=== PATIENT | male | born 1970 | race Caucasian/White ===

== ENCOUNTER → 2016-08-20 | Outpatient (CLI) | payer OTHER ==
--- NOTE | 2016-08-20 10:43 | XR ---
EXAMINATION TYPE: XR chest 2V DATE OF EXAM: 08/20/2016 9:56 AM COMPARISON: Prior chest x-ray 17 October 2015 HISTORY: Bacterial pneumonia TECHNIQUE: Frontal and lateral views of the chest are obtained. FINDINGS: There is no focal air space opacity, pleural effusion, or pneumothorax seen. The cardiac silhouette size is within normal limits. There is bronchial wall thickening. The osseous structures are intact. IMPRESSION: Correlate for bronchitis, reactive airways disease, follow-up as indicated.
== END | disposition home or self-care (01) ==
LOC: RADXRMAIN 09:44
PROVIDERS: ATTEND Family Medicine
DX: J15.9 Unspecified bacterial pneumonia (principal)
CPT/HCPCS: 71020

== ENCOUNTER → 2016-09-10 | Outpatient (CLI) | payer OTHER ==
--- NOTE | 2016-09-10 20:19 | CT ---
EXAMINATION TYPE: CT abdomen w con DATE OF EXAM: 09/10/2016 6:58 PM COMPARISON: NONE HISTORY: Upper Abdomen pain CT DLP: 747 mGycm Automated exposure control for dose reduction was used. TECHNIQUE: Helical acquisition of images was performed from the lung bases through the top of iliac crest to include entire abdomen. CONTRAST: Performed with Oral Contrast and with IV Contrast, patient injected with 100 mL of Omnipaque 300. FINDINGS: Lung bases are clear of consolidation. There is no pleural effusion. Heart size is normal. Liver shows no focal defect. Gallbladder appears normal. Spleen and pancreas appear normal. There is no adrenal mass. There is a 3 cm cortical cyst on the lateral right kidney. There is no hydronephrosi s. There is no retroperitoneal adenopathy. Ureters are not dilated. Abdominal aorta shows mild athero matous change. The appendix appears normal. I see no intestinal wall thickening. There are no dilated loops. I see n o bony destructive process. IMPRESSION: RIGHT RENAL CORTICAL CYST. NEGATIVE CT SCAN OF THE ABDOMEN. NORMAL APPENDIX.
== END | disposition home or self-care (01) ==
LOC: RADCTMAIN 17:53
PROVIDERS: ATTEND Family Medicine
DX: N28.1 Cyst of kidney, acquired (principal)
CPT/HCPCS: 74160; Q9967

== ENCOUNTER 2017-01-22 07:32 | Inpatient (IN) | payer OTHER ==
[2017-01-22] MEDS ORDERED: ONDANSETRON 4 MG/2 ML VIAL IVP STA (07:49)
[2017-01-22] MEDS ORDERED: SODIUM CHLORIDE 0.9% 1,000 ML IV STA (07:49)
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
[2017-01-22] MEDS: HYDROmorphone 1 MG/ML 1 ML SYRINGE IVP STA ×2 (08:03→09:02)
[2017-01-22 08:10] LABS: Basophils % (A) 0 %; CHCM 34.7; Eosinophils # (A) 0.1 k/uL (0-0.7); Eosinophils % (A) 0 %; HCT 50.7 % (39.0-53.0); HDW 2.34; HGB 16.8 gm/dL (13.0-17.5); Luc # (Auto) 0.12; Luc % (Auto) 1; Lymphocytes # (A) 1.6 k/uL (1.0-4.8); Lymphocytes % (A) 10 %; MCH 32.7 pg (25.0-35.0); MCHC 33.2 g/dL (31.0-37.0); MCV 98.5 fL (80.0-100.0); Mean Platelet Volume 7.1; Monocytes # (A) 0.4 k/uL (0-1.0); Monocytes % (A) 3 %; Neutrophils # (A) 13.4 k/uL (1.3-7.7); Neutrophils % (A) 86 %; RBC 5.15 m/uL (4.30-5.90); RDW 12.8 % (11.5-15.5); WBC 15.6 k/uL (3.8-10.6); WBC (Perox) 14.92
[2017-01-22 08:14] LABS: ALT 21 U/L (21-72); AST 20 U/L (17-59); Alkaline Phosphatase 80 U/L (38-126); Amylase 64 U/L (30-110); Anion Gap 7 mmol/L; Blood Urea Nitrogen 9 mg/dL (9-20); Calcium 9.3 mg/dL (8.4-10.2); Carbon Dioxide 25 mmol/L (22-30); Chloride 108 mmol/L (98-107); Glucose 103 mg/dL (74-99); Non-African American GFR(MDRD) >60 (>60 ml/min/1.73 sqM); Potassium 3.9 mmol/L (3.5-5.1); Sodium 140 mmol/L (137-145); Total Bilirubin 2.2 mg/dL (0.2-1.3); Total Protein 6.6 g/dL (6.3-8.2)
[2017-01-22] MEDS ORDERED: RX INFO: IV CONTRAST WAS GIVEN 1 EACH MISC MISCELLANE PRN (08:15)
[2017-01-22] MEDS ORDERED: SODIUM CHLORIDE 0.9% 1,000 ML IV ONE ×2 (08:15→16:42)
[2017-01-22] MEDS ORDERED: PIPERACILLIN-TAZOBACTAM 3.375 GM in DEXTROSE/WATER 1 50ML.BAG IVPB STA (09:00)
[2017-01-22] MEDS ORDERED: HYDROmorphone 1 MG/ML 1 ML SYRINGE IVP STA (09:01)
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
[2017-01-22] MEDS ORDERED: MIDAZOLAM 2 MG/2 ML VIAL IV ONE ×2 (10:40→11:10)
[2017-01-22] MEDS ORDERED: fentaNYL (PF) 50 MCG/ML 2 ML AMP IV ONE ×2 (10:40→11:10)
[2017-01-22] MEDS ORDERED: IV FLUID CONTINUATION 1,000 ML IV ONE (10:53)
[2017-01-22] MEDS ORDERED: DEXAMETHASONE SOD PHOSPHATE 10 MG/ML 1 ML VIAL IV ONE (10:54)
[2017-01-22] MEDS ORDERED: HEPARIN SODIUM,PORCINE 5,000 UNIT/ML 1 ML VIAL ONE (11:35)
[2017-01-22] MEDS ORDERED: VECURONIUM 10 MG VIAL IV ONE (11:35)
[2017-01-22] MEDS ORDERED: LIDOCAINE 1% INJ 10MG/ML (20 ML MDV) ONE (11:35)
[2017-01-22] MEDS ORDERED: GLYCOPYRROLATE 0.2 MG/ML 2 ML VIAL ONE (11:35)
[2017-01-22] MEDS ORDERED: PROPOFOL 10 MG/ML 20 ML VIAL IV ONE (11:35)
[2017-01-22] MEDS ORDERED: HYDROmorphone (PF) 1 MG/ML ONE (11:35)
[2017-01-22] MEDS ORDERED: SUCCINYLCHOLINE CHLORIDE 100 MG/5 ML SYR IV ONE (11:35)
[2017-01-22] MEDS ORDERED: NEOSTIGMINE 1 MG/ML 10 ML VIAL ONE (11:35)
[2017-01-22] MEDS ORDERED: fentaNYL (PF) 50 MCG/ML 2 ML AMP ONE (11:35)
[2017-01-22] MEDS ORDERED: LACTATED RINGERS 1,000 ML IV ONE ×2 (12:16→13:40)
[2017-01-22] MEDS ORDERED: ONDANSETRON 4 MG/2 ML VIAL IVP PRN ×2 (12:19→14:50)
[2017-01-22] MEDS ORDERED: diphenhydrAMINE 50 MG/ML 1 ML VIAL IVP PRN (12:19)
[2017-01-22] MEDS ORDERED: NALOXONE 0.4 MG/ML 1 ML VIAL IV PRN (12:19)
[2017-01-22] MEDS ORDERED: NALBUPHINE 10 MG/ML AMPUL IV PRN (12:19)
[2017-01-22] MEDS ORDERED: METOCLOPRAMIDE 5 MG/ML 2 ML VIAL IVP PRN (14:50)
--- NOTE | 2017-01-22 15:05 | P.OP ---
Date of Procedure: 01/22/17 Preoperative Diagnosis: Perforated hollow viscus Peritonitis Sepsis Postoperative Diagnosis: Perforated upper rectum - anterior perforation Four quadrant contamination of abdomen with feces Fecal peritonitis Procedure(s) Performed: Exploratory laparotomy Galvan procedure End colostomy Implants: Anesthesia: RUSHA Surgeon: Vivian Gonzales Estimated Blood Loss (ml): 50 Urine output (ml): 500 Pathology: other Condition: stable Disposition: PACU Indications for Procedure: 46Years old male presented with acute abdominal pain with diffuse peritonitis and free air on computed tomography scan. Informed consent obtained patient elected to undergo exploratory laparotomy possible bowel resection and possible ostomy and all indicated procedures Operative Findings: Diffuse fecal peritonitis with 4 quadrant fecal contamination of the abdomen Description of Procedure: The patient was brought to the operating room and placed in lithotomy position. Chlorhexidine was used to prep the abdomen. A Lynn catheter was inserted and a straight aseptic precautions. Sterile drapes applied. Ioban was used. A timeout was performed to verify correct patient, correct procedure and correct site. A vertical midline incision was made this was deepened through the subcutaneous tissue and the peritoneal cavity was entered. Levi fecal contamination noted. Aerobic and anaerobic cultures sent. The feculent material was suctioned. Perforation was identified in the upper rectum, anteriorly just above the peritoneal reflection. The descending colon was divided at the junction of sigmoid colon using APARNA 60 mm load. The white line of Toldt was divided. Using LigaSure impact the posterior attachments of the sigmoid colon and upper rectum were taken down. The peritoneum overlying the rectum anteriorly as well as laterally were scored. A contour stapler was used to divide the rectum distal to the opening. However the staple line was noted to be just at the rectal opening. 2-0 silk sutures were used to close this defect. Further dissection was carried out circumferentially to free up more rectum. Endo APARNA 45 purple load 3 were used to divide the rectum distal to the opening. Hemostasis was checked. 7 L of warm saline irrigation was used to wash the abdominal cavity. Nasogastric tube position was checked. The small bowel was run from terminal ileum to ligament of Treitz. The appendix appeared normal. An opening was made in the skin and subcutis tissue in the left lower quadrant. The skin and subcutis tissue was divided until anterior rectus fascia was seen. A cruciate shaped incision was made in the anterior rectus sheath. 4 fingers could be easily passed through the fascia to allow the ostomy to be matured. The midline incision was closed with running sutures of #1 Maxon 2. A Shaila drain was left in the subcu tissue and skin was stapled. The ostomy was then matured in standard fashion using 3-0 Vicryl. An index finger can be passed through the ostomy beyond the fascia. A clean ostomy bag was applied The sponge, instrument and needle count were correct 2. Patient tolerated the procedure well and was taken to post anesthesia care unit in stable condition
[2017-01-22] MEDS: BUPIVACAINE (PF) 0.5% 50 ML, HYDROMORPHONE (PF) 5 MG in SODIUM CHLORIDE 0.9% 200 ML EPIDURAL PRN ×2 (15:07→15:35)
[2017-01-22 16:35] LABS: CH 33.1; HCT 43.7 % (39.0-53.0); HDW 2.43; HGB 15.4 gm/dL (13.0-17.5); Immature Gran Flag Marked; MCH 34.3 pg (25.0-35.0); MCHC 35.2 g/dL (31.0-37.0); MCV 97.6 fL (80.0-100.0); Mean Platelet Volume 7.2; RBC 4.48 m/uL (4.30-5.90); RDW 12.3 % (11.5-15.5); WBC 6.3 k/uL (3.8-10.6); WBC (Perox) 6.87
[2017-01-22 16:43] LABS: Anion Gap 6 mmol/L; Blood Urea Nitrogen 7 mg/dL (9-20); Carbon Dioxide 22 mmol/L (22-30); Chloride 112 mmol/L (98-107); Glucose 105 mg/dL (74-99); Non-African American GFR(MDRD) >60 (>60 ml/min/1.73 sqM); Potassium 3.9 mmol/L (3.5-5.1); Sodium 140 mmol/L (137-145)
[2017-01-22 16:47] LABS: Add Differential Manual Differential
[2017-01-22 16:49] LABS: Nucleated Red Blood Cells 0 /100 WBC (0-0); RBC Morphology Normal; Total Cells Counted 100
[2017-01-22 16:50] LABS: Manual Review Performed
[2017-01-22] MEDS: LACTATED RINGERS 1,000 ML IV SCH (17:09)
[2017-01-22] MEDS: HEPARIN SODIUM,PORCINE 5,000 UNIT/ML 1 ML VIAL SQ SCH ×2 (17:09→23:57)
[2017-01-22] MEDS: PIPERACILLIN-TAZOBACTAM 3.375 GM in DEXTROSE/WATER 1 50ML.BAG IVPB SCH ×2 (17:53→23:56)
[2017-01-22 20:42] LABS: Glucose,Whole Blood 87 mg/dL (75-99)
[2017-01-22] MEDS: FAMOTIDINE 20 MG/2 ML VIAL IV SCH (20:42)
[2017-01-22] MEDS: BENZOCAINE/MENTHOL LOZENG 1 EACH LOZENGE MUCOUS MEM PRN ×2 (20:42→23:57)
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
[2017-01-22] MEDS: MICAFUNGIN 100 MG in SODIUM CHLORIDE 0.9% 100 ML IVPB SCH (22:28)
[2017-01-22 22:30] LABS: Hepatitis B Surface Ag Index 0.04
[2017-01-22 22:36] LABS: Hepatitis B Core IgM Index 0.03
[2017-01-22 22:48] LABS: Hepatitis C Virus IgG Ab Negative (Negative); Hepatitis C Virus IgG Index 0.04
[2017-01-23] MEDS: LACTATED RINGERS 1,000 ML IV SCH ×4 (01:40→23:44)
[2017-01-23] MEDS: BENZOCAINE/MENTHOL LOZENG 1 EACH LOZENGE MUCOUS MEM PRN ×2 (04:13→11:04)
--- NOTE | 2017-01-23 07:00 | P.PN ---
Progress Note - Text Date: 01/23/2017 Time: 614 The patient is status post, exploratory laparotomy postoperative day number one The patient has no complaints of nausea vomiting or headache. The patient does not complain of any lower extremity numbness or weakness. The epidural is running at 6 mL per hour. The epidural will be maintained and adjusted as needed.
[2017-01-23] MEDS: PIPERACILLIN-TAZOBACTAM 3.375 GM in DEXTROSE/WATER 1 50ML.BAG IVPB SCH ×3 (07:43→23:44)
[2017-01-23] MEDS: HEPARIN SODIUM,PORCINE 5,000 UNIT/ML 1 ML VIAL SQ SCH ×3 (07:44→23:44)
[2017-01-23] MEDS: FAMOTIDINE 20 MG/2 ML VIAL IV SCH ×2 (07:44→20:18)
--- NOTE | 2017-01-23 14:01 | P.PN ---
Subjective 46-year-old being seen sitting up in a chair this morning nasal gastric tube in place connected to suction. 200 mL's documented dressing to surgical site dry. Ostomy left lower quadrant stoma pink no stool. Patient's initial presentation on the day of admission to the emergency room on the with a chief complaint of severe pain. Patient had been seen earlier in the day in the emergency room treated for what was thought to be epididymitis was discharged on oral antibiotic. Patient stated the pain continued to be intense on a scale from 1-10 rated as 10. Patient stated he attempted to move her breather cough was more severe. Subsequent the patient came back into the emergency room to be reevaluated. CAT scan of the abdomen pelvis showed free air in a patient who has acute abdominal pain with diffuse peritonitis. Dr. mars did see patient recommended proceeding with with surgery for treatment of sepsis perforated per rectum. Patient on the January underwent exploratory laparotomy Kaylah procedure end colostomy. Operative findings showed diffuse fecal peritonitis with 4 quadrant fecal contamination of the abdomen Objective - Vital Signs Vital signs: Vital Signs Temp 97.9 F 01/23/17 01:41 Pulse 65 01/23/17 01:41 Resp 16 01/23/17 01:41 BP 98/63 01/23/17 01:41 Pulse Ox 96 01/23/17 08:49 Intake & Output 01/22/17 01/23/17 01/23/17 18:59 06:59 18:59 Intake Total 2402.2 1000 Output Total 700 600 Balance 1702.2 400 Weight 65.317 kg Intake: IV 2402.2 Intake, IV Titration 1000 Amount Lactated Ringers 1,000 ml 1000 @ 125 mls/hr IV .Q8H [facility] Rx#:[id number] Output: Urine 600 600 Estimated Blood Loss 100 Other: Voiding Method Indwelling Catheter Indwelling Catheter Indwelling Catheter - Exam Physical exam 46-year-old male sitting up in a chair pleasant awake alert oriented 3 Lungs essentially clear adequate air movement sats on 2 L 96% Heart S1-S2 audible and regular Abdomen ostomy left lower quadrant stoma pink a few hypoactive bowel tones dressing to surgical site dry indwelling Lynn catheter in place nondistended surgical tenderness Extremities lobe any DISHA hose on no edema - Labs CBC & Chem 7: 01/22/17 16:15 01/22/17 16:15 Labs: Abnormal Lab Results - Last 24 Hours (Table) 01/22/17 01/22/17 Range/Units 16:15 16:15 Lymphocytes # (Manual) 0.2 L (1.0-4.8) k/uL Chloride 112 H (98-107) mmol/L BUN 7 L (9-20) mg/dL Glucose 105 H (74-99) mg/dL Calcium 8.0 L (8.4-10.2) mg/dL Microbiology - Last 24 Hours (Table) 01/22/17 13:30 Gram Stain - Preliminary Abdominal Fluid Wound Culture - Preliminary 01/22/17 13:30 Gram Stain - Preliminary Abdominal Fluid Wound Culture - Preliminary 01/22/17 13:30 Anaerobic Culture - Preliminary Abdominal Fluid 01/22/17 13:30 Anaerobic Culture - Preliminary Abdominal Fluid Assessment and Plan Plan: Impression Present on admission severe intractable abdominal pain suspect due to acute generalized peritonitis Present on admission sepsis acute suspect due to acute Pneumoperitoneum with acute generalized peritonitis Current every day smoker Present on admission perforated rectum unclear etiology Present on admission acute leukocytosis Plan Remove the nasogastric tube Continue indwelling Lynn catheter while epidural in place Continue postop surgical care Pain control DVT and GI prophylaxis Ostomy teaching The above dictated assessment and findings were discussed with dr mars Impression and the plan of care have been dictated as directed. Cookie Rodriguez nurse practitioner acting as a scribe for dr mars
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
[2017-01-23] MEDS: BUPIVACAINE (PF) 0.5% 50 ML, HYDROMORPHONE (PF) 5 MG in SODIUM CHLORIDE 0.9% 200 ML EPIDURAL PRN (20:01)
[2017-01-23] MEDS: MICAFUNGIN 100 MG in SODIUM CHLORIDE 0.9% 100 ML IVPB SCH (22:02)
[2017-01-24 07:44] LABS: Basophils % (A) 0 %; CH 33.2; CHCM 34.6; Eosinophils # (A) 0.1 k/uL (0-0.7); Eosinophils % (A) 1 %; HCT 40.8 % (39.0-53.0); HDW 2.48; HGB 13.7 gm/dL (13.0-17.5); Luc # (Auto) 0.08; Luc % (Auto) 1; Lymphocytes # (A) 0.8 k/uL (1.0-4.8); Lymphocytes % (A) 6 %; MCH 32.3 pg (25.0-35.0); MCHC 33.5 g/dL (31.0-37.0); MCV 96.4 fL (80.0-100.0); Mean Platelet Volume 7.6; Monocytes # (A) 0.3 k/uL (0-1.0); Monocytes % (A) 2 %; Neutrophils # (A) 11.7 k/uL (1.3-7.7); Neutrophils % (A) 90 %; RBC 4.23 m/uL (4.30-5.90); RDW 12.6 % (11.5-15.5); WBC 12.9 k/uL (3.8-10.6)
[2017-01-24] MEDS: HEPARIN SODIUM,PORCINE 5,000 UNIT/ML 1 ML VIAL SQ SCH ×2 (08:07→15:25)
[2017-01-24 08:42] LABS: ALT 39 U/L (21-72); AST 47 U/L (17-59); Alkaline Phosphatase 93 U/L (38-126); Anion Gap 8 mmol/L; Blood Urea Nitrogen 8 mg/dL (9-20); Calcium 8.5 mg/dL (8.4-10.2); Carbon Dioxide 23 mmol/L (22-30); Chloride 104 mmol/L (98-107); Glucose 70 mg/dL (74-99); Non-African American GFR(MDRD) >60 (>60 ml/min/1.73 sqM); Potassium 3.6 mmol/L (3.5-5.1); Sodium 135 mmol/L (137-145); Total Bilirubin 1.1 mg/dL (0.2-1.3)
[2017-01-24] MEDS: PIPERACILLIN-TAZOBACTAM 3.375 GM in DEXTROSE/WATER 1 50ML.BAG IVPB SCH ×2 (09:26→15:26)
[2017-01-24] MEDS ORDERED: BUPIVACAINE (PF) 0.5% 30 ML VIAL EPIDURAL STA (09:38)
[2017-01-24] MEDS ORDERED: NALOXONE 0.4 MG/ML 1 ML VIAL IV PRN (09:50)
--- NOTE | 2017-01-24 09:56 | P.PN ---
Progress Note - Text Post operative day #2 , status post exploratory laparotomy with colostomy, patient had epidural catheter placed for postoperative analgesia, she'll currently on continuous infusion of bupivacaine/Dilaudid at 8 mL per hour , VAS is 5/10 , he has respiratory depression, had no motor deficit, epidural site okay. Assessment and plan= patient pain level to uncontrolled and he had side effects from the Dilaudid, I will discontinue the Dilaudid and changed the infusion to fentanyl/bupivacaine at 8 mL per hour,
[2017-01-24] MEDS ORDERED: BUPIVACAINE (PF) 0.5% 31.3 ML, fentaNYL (PF) 1,250 MCG in SODIUM CHLORIDE 0.9% 194 ML EPIDURAL PRN (10:00)
[2017-01-24] MEDS: FAMOTIDINE 20 MG/2 ML VIAL IV SCH ×2 (10:01→21:36)
[2017-01-24 10:28] LABS: Glucose,Whole Blood 93 mg/dL (75-99)
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
[2017-01-24] MEDS: IPRATROPIUM-ALBUTEROL 3 ML NEB INHALATION SCH ×4 (12:08→19:13)
--- NOTE | 2017-01-24 12:45 | P.PN ---
Progress Note - Text Psychiatry consult placed today. Patient is sedated, unable to answer any questions. Daughter at bedside. Spoke to RN Sonja, patient just received epidural for pain. Please reconsult when patient is medically stable/clear for psychiatric evaluations
[2017-01-24] MEDS: ACETAMINOPHEN IV (For NPO) 1,000 MG in EMPTY BAG 1 BAG IVPB SCH ×2 (13:32→19:57)
[2017-01-24] MEDS: LACTATED RINGERS 1,000 ML IV SCH ×3 (13:34→20:47)
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
[2017-01-24] MEDS: MICAFUNGIN 100 MG in SODIUM CHLORIDE 0.9% 100 ML IVPB SCH (21:36)
[2017-01-24 23:59] LABS: Glucose,Whole Blood 87 mg/dL (75-99)
[2017-01-25] MEDS: HEPARIN SODIUM,PORCINE 5,000 UNIT/ML 1 ML VIAL SQ SCH ×4 (00:19→23:21)
[2017-01-25] MEDS: PIPERACILLIN-TAZOBACTAM 3.375 GM in DEXTROSE/WATER 1 50ML.BAG IVPB SCH ×4 (00:20→23:16)
[2017-01-25] MEDS: ACETAMINOPHEN IV (For NPO) 1,000 MG in EMPTY BAG 1 BAG IVPB SCH ×2 (04:40→08:20)
[2017-01-25] MEDS: IPRATROPIUM-ALBUTEROL 3 ML NEB INHALATION SCH ×5 (05:21→20:27)
[2017-01-25] MEDS: LACTATED RINGERS 1,000 ML IV SCH ×3 (05:53→23:17)
[2017-01-25 05:56] LABS: Glucose,Whole Blood 76 mg/dL (75-99)
[2017-01-25] MEDS: FAMOTIDINE 20 MG/2 ML VIAL IV SCH ×2 (08:19→20:13)
[2017-01-25] MEDS ORDERED: MORPHINE SULFATE 2 MG/ML SYRINGE IVP PRN (10:02)
[2017-01-25 11:46] LABS: Glucose,Whole Blood 71 mg/dL (75-99)
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
[2017-01-25 12:08] LABS: Glucose,Whole Blood 78 mg/dL (75-99)
[2017-01-25] MEDS: HYDROmorphone 1 MG/ML 1 ML SYRINGE IVP PRN ×2 (17:40→20:05)
[2017-01-25 18:07] LABS: Glucose,Whole Blood 84 mg/dL (75-99)
[2017-01-25] MEDS: MICAFUNGIN 100 MG in SODIUM CHLORIDE 0.9% 100 ML IVPB SCH (20:06)
[2017-01-25] MEDS ORDERED: IPRATROPIUM-ALBUTEROL 3 ML NEB INHALATION PRN (21:39)
[2017-01-26 02:33] LABS: Glucose,Whole Blood 65 mg/dL (75-99)
[2017-01-26 02:56] LABS: Glucose,Whole Blood 80 mg/dL (75-99)
[2017-01-26 05:58] LABS: Glucose,Whole Blood 97 mg/dL (75-99)
[2017-01-26 07:09] LABS: Basophils % (A) 0 %; CH 33.1; CHCM 35.1; Eosinophils # (A) 0.1 k/uL (0-0.7); Eosinophils % (A) 2 %; HCT 40.8 % (39.0-53.0); HDW 2.71; HGB 14.7 gm/dL (13.0-17.5); Luc # (Auto) 0.25; Luc % (Auto) 3; Lymphocytes # (A) 0.9 k/uL (1.0-4.8); Lymphocytes % (A) 11 %; MCH 33.9 pg (25.0-35.0); MCHC 35.9 g/dL (31.0-37.0); MCV 94.5 fL (80.0-100.0); Mean Platelet Volume 7.3; Monocytes # (A) 0.6 k/uL (0-1.0); Monocytes % (A) 7 %; Neutrophils # (A) 6.4 k/uL (1.3-7.7); Neutrophils % (A) 77 %; RBC 4.32 m/uL (4.30-5.90); RDW 12.5 % (11.5-15.5); WBC 8.3 k/uL (3.8-10.6); WBC (Perox) 8.57
[2017-01-26 07:29] LABS: ALT 30 U/L (21-72); AST 32 U/L (17-59); Alkaline Phosphatase 86 U/L (38-126); Anion Gap 7 mmol/L; Blood Urea Nitrogen 7 mg/dL (9-20); Calcium 8.1 mg/dL (8.4-10.2); Carbon Dioxide 23 mmol/L (22-30); Chloride 105 mmol/L (98-107); Glucose 99 mg/dL (74-99); Non-African American GFR(MDRD) >60 (>60 ml/min/1.73 sqM); Potassium 3.2 mmol/L (3.5-5.1); Sodium 135 mmol/L (137-145); Total Bilirubin 0.8 mg/dL (0.2-1.3); Total Protein 5.1 g/dL (6.3-8.2)
[2017-01-26] MEDS: PIPERACILLIN-TAZOBACTAM 3.375 GM in DEXTROSE/WATER 1 50ML.BAG IVPB SCH ×2 (08:32→15:37)
[2017-01-26] MEDS: LACTATED RINGERS 1,000 ML IV SCH ×2 (08:32→16:30)
[2017-01-26] MEDS: HEPARIN SODIUM,PORCINE 5,000 UNIT/ML 1 ML VIAL SQ SCH ×2 (08:32→15:37)
[2017-01-26] MEDS: FAMOTIDINE 20 MG/2 ML VIAL IV SCH ×2 (08:32→20:30)
[2017-01-26] MEDS: HYDROmorphone 1 MG/ML 1 ML SYRINGE IVP PRN ×5 (09:08→20:30)
[2017-01-26] MEDS ORDERED: Potassium Replacement Protocol 1 EACH MISC MISCELLANE PRN (10:39)
--- NOTE | 2017-01-26 10:43 | P.PN ---
Subjective Patient is postop day #4 for perforated rectum with feculent peritonitis. He had a Galvan procedure. The patient has been uncooperative. We are awaiting psych consultation. Objective - Vital Signs Vital signs: Vital Signs Temp 98.0 F 01/26/17 07:00 Pulse 72 01/26/17 07:00 Resp 16 01/26/17 07:00 BP 147/85 01/26/17 07:00 Pulse Ox 94 L 01/26/17 07:00 Intake & Output 01/25/17 01/26/17 01/26/17 18:59 06:59 18:59 Intake Total 1700 Output Total 1900 1700 Balance -1900 0 Intake: Intake, IV Titration 1700 Amount Lactated Ringers 1,000 ml 1500 @ 125 mls/hr IV .Q8H [facility] Rx#:[id number] Micafungin 100 mg In 100 Sodium Chloride 0.9% 100 ml @ 100 mls/hr IVPB HS [facility] Rx#:[id number] Piperacillin-Tazobactam 3 100 .375 gm In Dextrose/Water 1 50ml.bag @ 12.5 mls/hr IVPB Q8HR [facility] Rx#: [id number] Output: Urine 1900 1700 Uretheral (Lynn) 1900 Other: Voiding Method Indwelling Catheter Urinal Toilet - Constitutional General appearance: Present: thin - Respiratory Details: Decreased breath sounds at the bases - Cardiovascular Rhythm: regular Heart sounds: normal: S1, S2 - Gastrointestinal Gastrointestinal Comment(s): Ostomy pink, no flatus yet Incision clean and dry/[place] drain intact General gastrointestinal: Present: absent bowel sounds - Labs CBC & Chem 7: 01/26/17 06:46 01/26/17 06:46 Labs: Abnormal Lab Results - Last 24 Hours (Table) 01/25/17 01/26/17 01/26/17 Range/Units 11:44 02:30 06:46 Lymphocytes # 0.9 L (1.0-4.8) k/uL Sodium (137-145) mmol/L Potassium (3.5-5.1) mmol/L BUN (9-20) mg/dL Creatinine (0.66-1.25) mg/dL POC Glucose (mg/dL) 71 L 65 L (75-99) mg/dL Calcium (8.4-10.2) mg/dL Total Protein (6.3-8.2) g/dL Albumin (3.5-5.0) g/dL 01/26/17 Range/Units 06:46 Lymphocytes # (1.0-4.8) k/uL Sodium 135 L (137-145) mmol/L Potassium 3.2 L (3.5-5.1) mmol/L BUN 7 L (9-20) mg/dL Creatinine 0.56 L (0.66-1.25) mg/dL POC Glucose (mg/dL) (75-99) mg/dL Calcium 8.1 L (8.4-10.2) mg/dL Total Protein 5.1 L (6.3-8.2) g/dL Albumin 2.6 L (3.5-5.0) g/dL Assessment and Plan Plan: Impression/plan: 1. Status post Galvan procedure for perforated rectum 2. Awaiting return of bowel function 3. Psychiatric history awaiting psych consult Plan: 1. Epidural and Lynn removed 2. Awaiting return of bowel function
[2017-01-26] MEDS: POTASSIUM CHLORIDE 10 MEQ, LIDOCAINE 2% INJ 10 MG in SODIUM CHLORIDE 0.9% 100 ML IVPB SCH ×4 (12:27→20:30)
[2017-01-26 12:35] LABS: Glucose,Whole Blood 93 mg/dL (75-99)
[2017-01-26 17:53] LABS: Glucose,Whole Blood 75 mg/dL (75-99)
[2017-01-26] MEDS: MICAFUNGIN 100 MG in SODIUM CHLORIDE 0.9% 100 ML IVPB SCH (21:33)
[2017-01-27 00:03] LABS: Glucose,Whole Blood 73 mg/dL (75-99)
[2017-01-27] MEDS: HYDROmorphone 1 MG/ML 1 ML SYRINGE IVP PRN ×6 (00:06→22:08)
[2017-01-27] MEDS: HEPARIN SODIUM,PORCINE 5,000 UNIT/ML 1 ML VIAL SQ SCH ×3 (00:09→16:22)
[2017-01-27] MEDS: PIPERACILLIN-TAZOBACTAM 3.375 GM in DEXTROSE/WATER 1 50ML.BAG IVPB SCH ×3 (00:09→16:22)
[2017-01-27] MEDS: LACTATED RINGERS 1,000 ML IV SCH ×4 (02:21→20:05)
[2017-01-27] MEDS: POTASSIUM CHLORIDE 10 MEQ, LIDOCAINE 2% INJ 10 MG in SODIUM CHLORIDE 0.9% 100 ML IVPB SCH ×2 (04:45→06:03)
[2017-01-27 05:51] LABS: Glucose,Whole Blood 89 mg/dL (75-99)
[2017-01-27 08:21] LABS: Basophils % (A) 0 %; CH 33.5; Eosinophils # (A) 0.1 k/uL (0-0.7); Eosinophils % (A) 2 %; HCT 42.4 % (39.0-53.0); HDW 2.67; HGB 14.4 gm/dL (13.0-17.5); Luc # (Auto) 0.25; Luc % (Auto) 3; Lymphocytes # (A) 1.2 k/uL (1.0-4.8); Lymphocytes % (A) 16 %; MCH 32.7 pg (25.0-35.0); MCHC 33.9 g/dL (31.0-37.0); MCV 96.2 fL (80.0-100.0); Mean Platelet Volume 7.2; Monocytes # (A) 0.7 k/uL (0-1.0); Monocytes % (A) 10 %; Neutrophils # (A) 5.2 k/uL (1.3-7.7); Neutrophils % (A) 69 %; RBC 4.41 m/uL (4.30-5.90); WBC 7.6 k/uL (3.8-10.6); WBC (Perox) 7.68
[2017-01-27 08:36] LABS: ALT 36 U/L (21-72); AST 38 U/L (17-59); Alkaline Phosphatase 87 U/L (38-126); Anion Gap 8 mmol/L; Blood Urea Nitrogen 5 mg/dL (9-20); Calcium 8.4 mg/dL (8.4-10.2); Carbon Dioxide 23 mmol/L (22-30); Chloride 106 mmol/L (98-107); Glucose 96 mg/dL (74-99); Magnesium 2.1 mg/dL (1.6-2.3); Non-African American GFR(MDRD) >60 (>60 ml/min/1.73 sqM); Potassium 3.6 mmol/L (3.5-5.1); Sodium 137 mmol/L (137-145); Total Bilirubin 0.8 mg/dL (0.2-1.3); Total Protein 5.4 g/dL (6.3-8.2)
[2017-01-27] MEDS: FAMOTIDINE 20 MG/2 ML VIAL IV SCH (09:09)
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
[2017-01-27] MEDS: POTASSIUM CHLORIDE 10 MEQ, LIDOCAINE 2% INJ 10 MG in SODIUM CHLORIDE 0.9% 100 ML IV SCH ×2 (10:47→12:12)
[2017-01-27] MEDS: KETOROLAC 30 MG/ML 1 ML VIAL IVP SCH ×2 (10:47→17:15)
[2017-01-27 11:17] VITALS: BMI 22.5
[2017-01-27 11:31] LABS: Glucose,Whole Blood 115 mg/dL (75-99)
[2017-01-27] MEDS ORDERED: KETOROLAC 30 MG/ML 1 ML VIAL IM SCH (12:00)
[2017-01-27 14:24] VITALS: RESP 16
[2017-01-27 18:01] LABS: Glucose,Whole Blood 114 mg/dL (75-99)
[2017-01-27] MEDS: MICAFUNGIN 100 MG in SODIUM CHLORIDE 0.9% 100 ML IVPB SCH (20:40)
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
[2017-01-27 23:57] LABS: Glucose,Whole Blood 108 mg/dL (75-99)
[2017-01-28] MEDS: HEPARIN SODIUM,PORCINE 5,000 UNIT/ML 1 ML VIAL SQ SCH ×2 (00:11→09:21)
[2017-01-28] MEDS: PIPERACILLIN-TAZOBACTAM 3.375 GM in DEXTROSE/WATER 1 50ML.BAG IVPB SCH ×2 (00:11→09:27)
[2017-01-28] MEDS: KETOROLAC 30 MG/ML 1 ML VIAL IVP SCH ×2 (00:55→06:08)
[2017-01-28 06:29] LABS: Glucose,Whole Blood 80 mg/dL (75-99)
[2017-01-28] MEDS ORDERED: HYDROcodone/APAP 5-325MG 1 EACH TAB PO PRN (06:48)
[2017-01-28] MEDS ORDERED: FAMOTIDINE 20 MG TAB PO SCH (09:00)
[2017-01-28] MEDS: LACTATED RINGERS 1,000 ML IV SCH (09:17)
[2017-01-28 10:12] VITALS: BP 170/90; PULSE 68; TEMP 97.2
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
[2017-01-28 11:52] LABS: Glucose,Whole Blood 83 mg/dL (75-99)
[2017-01-28] MEDS: POTASSIUM CHLORIDE ER 20 MEQ TAB.ER PO SCH ×2 (13:47→14:08)
== END 2017-01-28 14:50 | disposition home health service (06) | DRG 853 ==
LOC: EC 07:32 → 3SUR 10:17
PROVIDERS: ADMIT Surgery; ATTEND Surgery
PROC: 0D1N0Z4 Bypass Sigmoid Colon to Cutaneous, Open Approach (ICD-10-PCS; 2017-01-22)
PROC: 0DBP0ZZ Excision of Rectum, Open Approach (ICD-10-PCS; principal; 2017-01-22 09:00)
DX: A41.9 Sepsis, unspecified organism (principal); K65.0 Generalized (acute) peritonitis; K63.1 Perforation of intestine (nontraumatic); K66.8 Other specified disorders of peritoneum; F32.9 Major depressive disorder, single episode, unspecified; J44.9 Chronic obstructive pulmonary disease, unspecified; K21.9 Gastro-esophageal reflux disease without esophagitis; K82.8 Other specified diseases of gallbladder; F17.210 Nicotine dependence, cigarettes, uncomplicated; F39 Unspecified mood [affective] disorder; B96.1 Klebsiella pneumoniae [K. pneumoniae] as the cause of diseases classified elsewhere; B96.89 Other specified bacterial agents as the cause of diseases classified elsewhere; Z82.49 Family history of ischemic heart disease and other diseases of the circulatory system
CPT/HCPCS: 36415; 74177; 80048; 80053; 80074; 82150; 83605; 83690; 83735; 84132; 85025; 87070; 87075; 87077; 87186; 87205; 87390; 88307; 94640; 94760; 96361; 96365; 96375; 96376; 99291

== ENCOUNTER 2017-02-05 22:35 | Emergency (ER) | payer OTHER ==
[2017-02-05 23:46] LABS: Basophils # (A) 0.2 k/uL (0-0.2); Basophils % (A) 2 %; CH 33.4; CHCM 35.5; Eosinophils # (A) 0.2 k/uL (0-0.7); Eosinophils % (A) 2 %; HCT 42.9 % (39.0-53.0); HDW 2.58; HGB 15.1 gm/dL (13.0-17.5); Luc # (Auto) 0.21; Luc % (Auto) 2; Lymphocytes # (A) 2.3 k/uL (1.0-4.8); Lymphocytes % (A) 22 %; MCH 33.2 pg (25.0-35.0); MCHC 35.2 g/dL (31.0-37.0); MCV 94.4 fL (80.0-100.0); Mean Platelet Volume 6.7; Monocytes # (A) 0.8 k/uL (0-1.0); Monocytes % (A) 7 %; Neutrophils # (A) 6.9 k/uL (1.3-7.7); Neutrophils % (A) 66 %; RBC 4.55 m/uL (4.30-5.90); RDW 13.1 % (11.5-15.5); WBC 10.6 k/uL (3.8-10.6)
[2017-02-05] MEDS ORDERED: SODIUM CHLORIDE 0.9% 1,000 ML IV ONE (23:48)
[2017-02-05] MEDS ORDERED: HYDROmorphone 1 MG/ML 1 ML SYRINGE IVP STA (23:48)
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
[2017-02-06 00:01] LABS: ALT 66 U/L (21-72); AST 35 U/L (17-59); Alkaline Phosphatase 86 U/L (38-126); Amylase 103 U/L (30-110); Anion Gap 13 mmol/L; Blood Urea Nitrogen 10 mg/dL (9-20); Calcium 9.7 mg/dL (8.4-10.2); Carbon Dioxide 23 mmol/L (22-30); Chloride 104 mmol/L (98-107); Glucose 100 mg/dL (74-99); Non-African American GFR(MDRD) >60 (>60 ml/min/1.73 sqM); Potassium 3.8 mmol/L (3.5-5.1); Sodium 140 mmol/L (137-145); Total Bilirubin 0.3 mg/dL (0.2-1.3); Total Protein 6.7 g/dL (6.3-8.2)
[2017-02-06 01:03] LABS: Appearance,Urine Clear (Clear); Bilirubin,Urine Negative (Negative); Glucose,Urine (UA) Negative (Negative); Ketones,Urine Negative (Negative); Leukocyte Esterase,Urine Negative (Negative); Nitrite,Urine Negative (Negative); Protein,Urine Negative (Negative); Specific Gravity,Urine 1.007 (1.001-1.035); UA Billing (MACRO vs. MICRO) CHEM; Urobilinogen,Urine <2.0 mg/dL (<2.0)
[2017-02-06] MEDS ORDERED: RX INFO: IV CONTRAST WAS GIVEN 1 EACH MISC MISCELLANE PRN (01:12)
[2017-02-06] MEDS ORDERED: MORPHINE SULFATE 10 MG/ML SYRINGE IVP STA (02:02)
--- NOTE | 2017-02-06 03:41 | CT ---
EXAM: CT Abdomen and Pelvis With Intravenous Contrast CLINICAL HISTORY: Reason: Pain. Recent bowel resection. TECHNIQUE: Axial computed tomography images of the abdomen and pelvis with intravenous contrast. CTDI is 21.83 mGy and DLP is 919 mGy-cm. This CT exam was performed using one or more of the following dose reduction techniques: automated exposure control, adjustment of the mA and/or kV according to patient size, and/or use of iterative reconstruction technique. COMPARISON: Recent 01/22/17 CT. FINDINGS: Lower thorax: Increased atelectasis the right base with trace right pleural effusion, and minor dependent changes at the left base, ABDOMEN: Liver: Stable. No mass. Gallbladder and bile ducts: Borderline gallbladder wall thickening is stable with the gallbladder now less distended. No calcified stones. No ductal dilation. Pancreas: Stable. No mass. No ductal dilation. Spleen: Stable. No splenomegaly. Adrenals: Stable. No mass. Kidneys and ureters: Stable including exophytic right renal cyst and punctate left lower pole renal probable cyst. No hydronephrosis. Stomach and bowel: Interval distal sigmoid resection with oversewn distal rectum, and creation of left lower quadrant diverting colostomy. No evidence of intestinal obstruction. Appendix: No findings to suggest acute appendicitis. PELVIS: Bladder: Unremarkable. No mass. Reproductive: Unremarkable as visualized. ABDOMEN and PELVIS: Intraperitoneal space: Previous free air has resolved. Bones/joints: Stable including slight leftward curvature and incidental note made of transitional anatomy at the lumbosacral junction. Soft tissues: New postsurgical changes in the anterior abdominal wall, with midline defect and overlying skin sam, between which there is air and fluid containing collection extending over a length of approximately 16 cm in length, by 2.7 x 2.1 cm on axial image 64. Vasculature: Stable. No abdominal aortic aneurysm. Lymph nodes: Stable. No enlarged lymph nodes. IMPRESSION: 1. Interval distal sigmoid resection with left lower quadrant diverting colostomy, and resolution of previous free air. 2. Postoperative changes in the midline anterior abdominal wall, where there is vertically oriented fluid collection which contains foci of air within. While this may be on the basis of a postoperative hematoma or seroma the possibility of infection is not excluded. This could be correlated clinically including with infectious disease parameters, and fluid sampling could be considered if clinically indicated. 3. Additional findings, including increased right base atelectasis with trace right pleural effusion, as above.
[2017-02-06] MEDS ORDERED: MORPHINE SULFATE 4 MG/ML SYRINGE IVP STA (04:19)
[2017-02-06 04:28] VITALS: BP 129/63; PULSE 68; RESP 16; TEMP 97.4
== END 2017-02-06 04:27 | disposition home or self-care (01) ==
LOC: EC 22:35
DX: K91.872 Postprocedural seroma of a digestive system organ or structure following a digestive system procedure (principal); R00.0 Tachycardia, unspecified; M54.5 Low back pain; R30.9 Painful micturition, unspecified; F17.200 Nicotine dependence, unspecified, uncomplicated; Z79.899 Other long term (current) drug therapy; Z91.030 Bee allergy status; Z93.3 Colostomy status; Z98.84 Bariatric surgery status; Z83.79 Family history of other diseases of the digestive system; Y83.6 Removal of other organ (partial) (total) as the cause of abnormal reaction of the patient, or of later complication, without mention of misadventure at the time of the procedure
CPT/HCPCS: 36415; 80053; 82150; 83605; 83690; 85025; 81003; 87040; 74177; 99284; 96374; 96375; 96376; 96361 ×4; J2270 ×2; J1170; Q9967

== ENCOUNTER 2017-03-20 18:28 | Emergency (ER) | payer OTHER ==
[2017-03-20] MEDS ORDERED: SODIUM CHLORIDE 0.9% 1,000 ML IV STA (18:42)
[2017-03-20] MEDS ORDERED: HYDROmorphone 1 MG/ML 1 ML SYRINGE IVP STA ×2 (18:42→20:38)
[2017-03-20] MEDS ORDERED: ONDANSETRON 4 MG/2 ML VIAL IVP STA (18:42)
[2017-03-20] MEDS ORDERED: RX INFO: IV CONTRAST WAS GIVEN 1 EACH MISC MISCELLANE PRN (19:09)
[2017-03-20 19:17] LABS: Basophils % (A) 0 %; CH 33.1; CHCM 35.4; Eosinophils # (A) 0.2 k/uL (0-0.7); Eosinophils % (A) 2 %; HDW 2.58; HGB 16.2 gm/dL (13.0-17.5); Luc % (Auto) 2; Lymphocytes # (A) 2.5 k/uL (1.0-4.8); Lymphocytes % (A) 26 %; MCH 33.1 pg (25.0-35.0); MCHC 35.3 g/dL (31.0-37.0); MCV 93.8 fL (80.0-100.0); Mean Platelet Volume 6.7; Monocytes # (A) 0.5 k/uL (0-1.0); Monocytes % (A) 5 %; Neutrophils # (A) 6.3 k/uL (1.3-7.7); Neutrophils % (A) 65 %; RDW 13.2 % (11.5-15.5); WBC 9.7 k/uL (3.8-10.6); WBC (Perox) 9.49
--- NOTE | 2017-03-20 19:20 | XR ---
EXAMINATION TYPE: XR KUB DATE OF EXAM: 03/20/2017 COMPARISON: NONE HISTORY: Colostomy pain TECHNIQUE: 2 views FINDINGS: Bowel gas pattern is normal. There is no sign of intestinal obstruction or pneumoperitoneum . There is a colostomy in the left mid abdomen. Lung bases are clear. There are no pathologic calcifi cations over the kidneys. Fecal pattern is normal. IMPRESSION: Nonacute abdomen.
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
[2017-03-20 19:27] LABS: ALT 36 U/L (21-72); AST 24 U/L (17-59); Alkaline Phosphatase 94 U/L (38-126); Amylase 87 U/L (30-110); Anion Gap 12 mmol/L; Blood Urea Nitrogen 5 mg/dL (9-20); Calcium 9.9 mg/dL (8.4-10.2); Carbon Dioxide 26 mmol/L (22-30); Chloride 103 mmol/L (98-107); Glucose 102 mg/dL (74-99); Non-African American GFR(MDRD) >60 (>60 ml/min/1.73 sqM); Potassium 4.2 mmol/L (3.5-5.1); Sodium 141 mmol/L (137-145); Total Bilirubin 0.7 mg/dL (0.2-1.3); Total Protein 7.6 g/dL (6.3-8.2)
[2017-03-20 19:30] LABS: Partial Thromboplastin Time 28.2 sec (22.0-30.0); Prothrombin Time 10.4 sec (9.0-12.0)
--- NOTE | 2017-03-20 19:46 | CT ---
EXAMINATION TYPE: CT abdomen pelvis w con DATE OF EXAM: 03/20/2017 COMPARISON: 02/06/2017 HISTORY: ABDOMINAL PAIN NEAR COLOSTOMY SITE. CT DLP: 439.4 mGycm Automated exposure control for dose reduction was used. TECHNIQUE: Helical acquisition of images was performed from the lung bases through the pelvis. CONTRAST: Performed without Oral Contrast and with IV Contrast, patient injected with 100 mL of Omnipaque 300. FINDINGS: There is mild increased interstitial density at the lung bases consistent with minimal atelectasis. T here is no pleural effusion. Liver spleen pancreas gallbladder appear normal. Bile ducts are not dilated. There is no adrenal mass . There is a 2 cm cortical cyst on the lateral right kidney. There is no hydronephrosis. There is no retroperitoneal adenopathy. Abdominal aorta is atheromatous. There is a descending colon colonic osto my on the left side. Large bowel is not dilated. There is borderline dilated small bowel that measure s up to 2.8 cm. I see no obstructing lesion. Appendix appears normal. Bony structures are intact. There is no ascites. I see no bony destructive process. IMPRESSION: THERE IS FLUID MILD DISTENTION OF THE SMALL BOWEL CONSISTENT WITH MILD ILEUS. THERE IS MORE DISTENTIO N THAN THE LAST EXAM OF 02/06/2017. RIGHT RENAL CORTICAL CYST. THERE IS CLEARING OF THE INFILTRATE AND ATELECTASIS IN THE RIGHT LOWER LOBE COMPARED TO OLD EXAM.
[2017-03-20 20:29] LABS: Appearance,Urine Clear (Clear); Bilirubin,Urine Negative (Negative); Glucose,Urine (UA) Negative (Negative); Ketones,Urine Negative (Negative); Leukocyte Esterase,Urine Negative (Negative); Nitrite,Urine Negative (Negative); Protein,Urine Negative (Negative); Specific Gravity,Urine 1.039 (1.001-1.035); UA Billing (MACRO vs. MICRO) CHEM; Urobilinogen,Urine <2.0 mg/dL (<2.0)
[2017-03-20 21:34] VITALS: BP 142/86; PULSE 86; RESP 16; TEMP 98.3
== END 2017-03-20 21:40 | disposition home or self-care (01) ==
LOC: EC 18:28
DX: K56.7 Ileus, unspecified (principal); F17.200 Nicotine dependence, unspecified, uncomplicated; Z93.3 Colostomy status; Z98.84 Bariatric surgery status; Z79.899 Other long term (current) drug therapy; Z91.030 Bee allergy status
CPT/HCPCS: 96376 ×2; 96361 ×2; 96374 ×2; 96375 ×2; 99284 ×2; 36415; 80053; 82150; 83605; 83690; 85025; 85610; 85730; 81003; 74000; 74177; J2405; J1170; Q9967

== ENCOUNTER 2017-04-21 18:02 | Emergency (ER) | payer OTHER ==
[2017-04-21 18:26] VITALS: TEMP 97.5
[2017-04-21] MEDS ORDERED: ASPIRIN 81 MG PO STA (18:35)
[2017-04-21] MEDS ORDERED: NITROGLYCERIN OINT 1 INCH/GM PACKET TOPICAL STA (18:35)
--- NOTE | 2017-04-21 19:21 | XR ---
EXAMINATION TYPE: XR chest 2V DATE OF EXAM: 04/21/2017 COMPARISON: 08/20/2016 HISTORY: Chest pain TECHNIQUE: Frontal and lateral views of the chest are obtained. FINDINGS: There is no focal air space opacity, pleural effusion, or pneumothorax seen. The cardiac silhouette size is within normal limits. The osseous structures are intact. IMPRESSION: No acute cardiopulmonary process.
[2017-04-21 19:22] LABS: Basophils % (A) 0 %; CH 32.8; CHCM 35.2; Eosinophils # (A) 0.3 k/uL (0-0.7); Eosinophils % (A) 2 %; HCT 43.9 % (39.0-53.0); HDW 2.62; HGB 15.6 gm/dL (13.0-17.5); Luc # (Auto) 0.17; Luc % (Auto) 1; Lymphocytes # (A) 2.4 k/uL (1.0-4.8); Lymphocytes % (A) 15 %; MCH 33.2 pg (25.0-35.0); MCHC 35.5 g/dL (31.0-37.0); MCV 93.6 fL (80.0-100.0); Mean Platelet Volume 6.9; Monocytes # (A) 0.5 k/uL (0-1.0); Monocytes % (A) 3 %; Neutrophils # (A) 12.5 k/uL (1.3-7.7); Neutrophils % (A) 79 %; RBC 4.69 m/uL (4.30-5.90); WBC 15.9 k/uL (3.8-10.6); WBC (Perox) 14.89
[2017-04-21 19:38] LABS: ALT 35 U/L (21-72); AST 24 U/L (17-59); Alkaline Phosphatase 94 U/L (38-126); Anion Gap 9 mmol/L; Blood Urea Nitrogen 6 mg/dL (9-20); Calcium 9.6 mg/dL (8.4-10.2); Carbon Dioxide 25 mmol/L (22-30); Chloride 105 mmol/L (98-107); Glucose 81 mg/dL (74-99); Magnesium 2.1 mg/dL (1.6-2.3); Non-African American GFR(MDRD) >60 (>60 ml/min/1.73 sqM); Potassium 4.1 mmol/L (3.5-5.1); Prothrombin Time 10.3 sec (9.0-12.0); Sodium 139 mmol/L (137-145); Total Bilirubin 0.6 mg/dL (0.2-1.3); Total Protein 7.3 g/dL (6.3-8.2)
[2017-04-21 19:41] LABS: Creatine Kinase 75 U/L (55-170)
[2017-04-21 19:54] LABS: Creatine Kinase MB 0.3 ng/mL (0.0-2.4); Troponin I <0.012 ng/mL (0.000-0.034)
--- NOTE | 2017-04-21 20:05 | ED ---
Chest Pain HPI - General Chief Complaint: Chest Pain Stated Complaint: Sent by ME abnormal labs Time Seen by Provider: 04/21/17 18:26 Source: patient Mode of arrival: ambulatory Limitations: no limitations - History of Present Illness Initial Comments: This 46-year-old white male presents with a complaint of some chest pain. This is in the midsternal region and described as a pressure or heaviness. There is no radiation of the pain. This occurred while at rest. He denies any known previous cardiac or pulmonary pathology. He, however, states that everyone in his family has cardiac disease. He has had occasional shortness of breath. He denies any leg pain or swelling. There is not a pleuritic component to his chest pain. He denies any previous similar incidents. No history of DVT or PE. He relates that he had a stress test and heart catheterization in December 2016 and the results were negative at that time. No other complaints or modifying factors. - Related Data Home Medications Medication Instructions Recorded Confirmed No Known Home Medications [No 04/21/17 04/21/17 Known Home Medications] Allergies Allergy/AdvReac Type Severity Reaction Status Date / Time bee venom protein (honey bee) Allergy Severe Anaphylaxis Verified 04/21/17 18:36 Review of Systems ROS Statement: Those systems with pertinent positive or pertinent negative responses have been documented in the HPI. ROS Other: All systems not noted in ROS Statement are negative. Past Medical History Past Medical History: COPD, GERD/Reflux Additional Past Medical History / Comment(s): Encephalopathy, hypoglycemia History of Any Multi-Drug Resistant Organisms: None Reported Past Surgical History: Bariatric Surgery Past Anesthesia/Blood Transfusion Reactions: No Reported Reaction Past Psychological History: No Psychological Hx Reported Smoking Status: Current every day smoker Past Alcohol Use History: None Reported Past Drug Use History: None Reported - Past Family History Father Family Medical History: Coronary Artery Disease (CAD), Pulmonary Embolus Mother Family Medical History: COPD, GERD/Reflux, Hypertension, Myocardial Infarction ( [place]), Rheumatoid Arthritis ([place]) General Exam - General Exam Comments Initial Comments: GENERAL: The patient is well nourished and well hydrated. VITAL SIGNS: Heart rate, blood pressure, respiratory rate reviewed as recorded in nurse's notes. EYES: Pupils are round and reactive. Extraocular movements are intact. No conjunctival / lid redness or swelling. ENT: No external evidence of injury, swelling, or ecchymosis. Airway is patent. Throat is clear. NECK: Nontender. No swelling or evidence of injury. No subcutaneous emphysema. Trachea is midline. No thyroid mass. HEART: Regular rate and rhythm. Good peripheral pulses. LUNGS/CHEST: Breath sounds clear and equal bilaterally. No rales, rhonchi, or wheezes. No ecchymosis, subcutaneous emphysema, or tenderness. ABDOMEN: Abdomen soft without tenderness. No palpable masses or organomegaly. No peritoneal signs. No abdominal wall swelling or ecchymosis. EXTREMITIES: No extremity tenderness. Normal muscle tone and function. No thoracolumbar tenderness. NEUROLOGIC: Sensation is grossly intact. Cranial nerve exam reveals face is symmetrical, tongue is midline, speech is clear. SKIN: No abrasions or ecchymosis is noted. No induration or masses noted. PSYCHIATRIC: Alert and oriented. Appropriate behavior and judgment. Limitations: no limitations Course Vital Signs 04/21/17 18:24 Temperature 97.5 F L Pulse Rate 90 Respiratory 20 Rate Blood Pressure 126/78 O2 Sat by Pulse 98 Oximetry Chest Pain [facility] The patient was seen and examined. All diagnostics were reviewed. An EKG was done and shows a normal sinus rhythm at a rate of 80. There is no acute ST-T wave changes identified. The [place] interval is 158, QRS duration is 86, and the QTc interval is 422. The chest x-ray does not show any acute process. The laboratory is all unremarkable. He does receive aspirin as well as Nitropaste. He is feeling much improved on recheck and has no further chest pain. This felt as though he would require admission to the hospital for further treatment and evaluation to rule out the possibility of acute coronary syndrome. He refuses admission. Risks and benefits were discussed and ultimately detail. He is lucid at time of discussion but still refuses admission. He states that he just had a stress test and heart catheterization approximately 4 months ago and was negative at that time. He prefers to follow up closely with his primary care physician and leaves AGAINST MEDICAL ADVICE. Disposition Clinical Impression: Unstable angina pectoris, Chest pain, Left against medical advice Disposition: Left Against Medical Advice Condition: Fair Instructions: Chest Pain (ED), Against Medical Advice (ED) Referrals: Gaurang Middleton DO [Primary Care Provider] - 1-2 days Time of Disposition: 20:14
[2017-04-21 20:45] VITALS: BP 106/60; PULSE 88; RESP 16
== END 2017-04-21 20:45 | disposition left against medical advice (07) ==
LOC: EC 18:02
DX: I20.0 Unstable angina (principal); F17.200 Nicotine dependence, unspecified, uncomplicated; Z82.49 Family history of ischemic heart disease and other diseases of the circulatory system; Z53.29 Procedure and treatment not carried out because of patient's decision for other reasons; Z91.030 Bee allergy status
CPT/HCPCS: 36415; 71020; 80053; 82550; 82553; 83735; 84484; 85025; 85610; 85730; 93005; 99285

== ENCOUNTER 2017-05-06 06:33 | Day surgery (SDC) | payer OTHER ==
[2017-04-30 13:30] VITALS: BMI 22.7
[~2017-05-06 06:33] MED LIST: LACTATED RINGERS 1,000 ML IV SCH
[2017-05-06 07:06] VITALS: TEMP 97.7
[2017-05-06 07:10] LABS: Glucose,Whole Blood 87 mg/dL (75-99)
[2017-05-06] MEDS ORDERED: PROPOFOL 10 MG/ML 20 ML VIAL IV ONE (07:33)
[2017-05-06] MEDS ORDERED: LIDOCAINE 1% INJ 10MG/ML (20 ML MDV) ONE (07:33)
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
--- NOTE | 2017-05-06 08:09 | P.OP ---
Date of Procedure: 05/06/17 Preoperative Diagnosis: Rectal perforation COPD H/O seizure Postoperative Diagnosis: Ascending colon polyp 5 mm Procedure(s) Performed: Colonoscopy via ostomy and distal rectal stump Biopsy using cold biopsy forceps Anesthesia: MAC Surgeon: Vivian Gonzales Pathology: other Condition: stable Disposition: PACU Indications for Procedure: 46 years old male presents for colonoscopy via ostomy and distal rectal stump for colostomy reversal. He is a chronic active smoker and history of COPD. Operative Findings: Distal rectal stump measures 10 cm from the anal verge Single 5 mm polyp in the ascending colon which was removed using cold biopsy forceps Description of Procedure: The patient was brought to the endoscopy suite and placed in lateral decubitus position. IV sedation was given as per anesthesia team. Patient was on continuous vitals and pulse oximetry monitoring throughout the procedure. A timeout was performed to verify correct patient and correct procedure. Perianal examination did not show any external hemorrhoids. Digital rectal examination was performed. No masses or gross blood. A well-lubricated Olympus colonoscope was passed per rectally and was gradually up to 10 cm from the anal verge . No additional polyps identified. Patient was then placed supine and ostomy bag was removed. A well-lubricated colonoscope was passed via ostomy beyond the sigmoid colon, splenic flexure, transverse colon, hepatic flexure and cecum. The ileocecal valve was visualized as well as the appendiceal orifice . The colonoscope was gradually withdrawn inspecting all the mucosal surfaces. Bowel prep was fair. Single 5 mm flat polyp identified in the ascending colon which was removed using cold biopsy forceps .No AV malformations noted. The scope was gradually withdrawn . Total withdrawal time was greater than 6 minutes . Patient tolerated the procedure well and was taken to post anesthesia care unit in stable condition. Final Pathologic Diagnosis ASCENDING COLON, BIOPSY: TUBULAR ADENOMA. Recommend repeat colonoscopy in 5 years .
[2017-05-06 08:37] VITALS: BP 110/78; PULSE 74; RESP 20
== END 2017-05-06 08:46 | disposition home or self-care (01) ==
LOC: ORWHC2ENDO 06:33
PROVIDERS: ATTEND Surgery
DX: D12.2 Benign neoplasm of ascending colon (principal); K63.1 Perforation of intestine (nontraumatic); Z93.3 Colostomy status; F17.210 Nicotine dependence, cigarettes, uncomplicated; J44.9 Chronic obstructive pulmonary disease, unspecified; K21.9 Gastro-esophageal reflux disease without esophagitis; E16.2 Hypoglycemia, unspecified; Z91.030 Bee allergy status
CPT/HCPCS: 88305; 44389; J2001; J2704

== ENCOUNTER 2017-05-07 06:29 | Inpatient (IN) | payer OTHER ==
[2017-04-30 13:45] VITALS: BMI 22.7
[~2017-05-07 06:29] MED LIST changes: +DEXAMETHASONE SOD PHOSPHATE 10 MG/ML 1 ML VIAL IV ONE; +HEPARIN SODIUM,PORCINE 5,000 UNIT/ML 1 ML VIAL SQ ONE; +HYDROmorphone 0.5 MG/0.5 ML SYRINGE IVP PRN; -LACTATED RINGERS 1,000 ML IV SCH; +LIDOCAINE 1% 20 ML VIAL (10MG/ML) FOR IV START INTRADERMA PRN; +ONDANSETRON 4 MG/2 ML VIAL IVP ONE; +SCOPOLAMINE 1.5MG/72HR PATCH TRANSDERM ONE
[2017-05-07] MEDS ORDERED: NALOXONE 0.4 MG/ML 1 ML VIAL IV PRN (10:20)
[2017-05-07 10:39] LABS: Glucose,Whole Blood 90 mg/dL (75-99)
[2017-05-07] MEDS: LACTATED RINGERS 1,000 ML IV SCH ×2 (10:45→20:50)
[2017-05-07] MEDS ORDERED: Antibiotics per Pharmacy 1 EACH MISC MISCELLANE PRN (11:18)
[2017-05-07] MEDS ORDERED: ACETAMINOPHEN TAB 500 MG TAB PO ONE (11:18)
[2017-05-07] MEDS ORDERED: HEPARIN SODIUM,PORCINE 5,000 UNIT/ML 1 ML VIAL SQ ONE (11:18)
[2017-05-07] MEDS ORDERED: ALVIMOPAN 12 MG CAPSULE PO ONE (11:18)
[2017-05-07] MEDS ORDERED: HYDROmorphone (PF) 1 MG/ML ONE (11:46)
[2017-05-07] MEDS ORDERED: ROCURONIUM BROMIDE 10 MG/ML 10 ML VIAL IV ONE (11:46)
[2017-05-07] MEDS ORDERED: LIDOCAINE 1% INJ 10MG/ML (20 ML MDV) ONE (11:46)
[2017-05-07] MEDS ORDERED: PROPOFOL 10 MG/ML 20 ML VIAL IV ONE (11:46)
[2017-05-07] MEDS ORDERED: fentaNYL (PF) 50 MCG/ML 2 ML AMP ONE (11:46)
[2017-05-07] MEDS ORDERED: GLYCOPYRROLATE 0.2 MG/ML 2 ML VIAL ONE (11:46)
[2017-05-07] MEDS ORDERED: MIDAZOLAM 2 MG/2 ML VIAL ONE (11:46)
[2017-05-07] MEDS ORDERED: NEOSTIGMINE 1 MG/ML 10 ML VIAL ONE (11:46)
[2017-05-07 12:23] LABS: Glucose,Whole Blood 111 mg/dL (75-99)
[2017-05-07 12:43] LABS: ALT 29 U/L (21-72); AST 31 U/L (17-59); Alkaline Phosphatase 86 U/L (38-126); Anion Gap 9 mmol/L; Blood Urea Nitrogen 8 mg/dL (9-20); Calcium 9.5 mg/dL (8.4-10.2); Carbon Dioxide 27 mmol/L (22-30); Chloride 103 mmol/L (98-107); Glucose 81 mg/dL (74-99); Non-African American GFR(MDRD) >60 (>60 ml/min/1.73 sqM); Potassium 4.3 mmol/L (3.5-5.1); Sodium 139 mmol/L (137-145); Total Bilirubin 0.6 mg/dL (0.2-1.3); Total Protein 7.1 g/dL (6.3-8.2)
[2017-05-07] MEDS ORDERED: LACTATED RINGERS 1,000 ML IV ONE ×2 (12:48→14:21)
[2017-05-07 13:33] LABS: Glucose,Whole Blood 156 mg/dL (75-99)
[2017-05-07 14:30] LABS: Glucose,Whole Blood 190 mg/dL (75-99)
[2017-05-07] MEDS: BUPIVACAINE (PF) 0.5% 31.3 ML, HYDROMORPHONE (PF) 5 MG in SODIUM CHLORIDE 0.9% 218 ML EPIDURAL PRN (15:46)
[2017-05-07] MEDS ORDERED: ONDANSETRON 4 MG/2 ML VIAL IVP PRN (15:59)
[2017-05-07] MEDS ORDERED: BENZOCAINE/MENTHOL LOZENG 1 EACH LOZENGE MUCOUS MEM PRN (15:59)
[2017-05-07] MEDS ORDERED: METOCLOPRAMIDE 5 MG/ML 2 ML VIAL IVP PRN (15:59)
--- NOTE | 2017-05-07 16:35 | P.OP ---
Date of Procedure: 05/07/17 Preoperative Diagnosis: Rectal perforation secondary to trauma Chronic nicotine dependence Postoperative Diagnosis: Same Procedure(s) Performed: Exploratory laparotomy Colostomy takedown Low anterior anastomosis Rigid sigmoidoscopy Application of Pervena wound VAC dressing Implants: NA Anesthesia: GETAjoyce Surgeon: Vivian Gonzales Estimated Blood Loss (ml): 50 Pathology: none sent Condition: stable Disposition: PACU Indications for Procedure: 46 years old male presents for colostomy reversal. Informed consent obtained and he elected to undergo colostomy reversal. The risks, benefits and potential complications were explained. Operative Findings: Low rectal stump below the anterior peritoneal reflection Primary low anterior anastomosis was performed. Air insufflation test was negative for leak Description of Procedure: The patient was brought to the operating room and placed in lithotomy position. Gen. anesthesia with endotracheal intubation was performed as per anesthesia team. A timeout was performed to verify correct patient and correct procedure. The ostomy was closed with running sutures of 2-0 silk and sealed with Tegaderm. The perineum was prepped with Betadine. Chlorhexidine was used to prep the entire abdomen followed by application of sterile drapes. An iodoform dressing applied. A vertical midline incision was made along the existing scar and the peritoneal cavity was entered in the midline. Adhesions noted between the anterior abdominal wall and omentum. Meticulous dissection was carried out to take the adhesions down using combination of sharp Metzenbaum scissors and Bovie electrocautery. The small bowel was run from terminal ileum to the ligament of Treitz. There were some adhesions noted between the greater omentum and the small bowel loops which were again taken down using meticulous dissection. The colostomy site was then from the surrounding skin and subcutaneous tissue. TA 75mm load was fired across the end of the ostomy and it was interiorized. The white line of Toldt was incised along the left lateral wall. Dissection was carried down to free up the lateral adhesions to gain enough length for the staple line to reach the pelvis. The distal rectal stump was identified with the help of Prolene stitches which were placed during the prior surgery. The rectal stump was completely mobilized below the peritoneal reflection. The descending colon and the rectal stump were aligned in end- to end fashion. There was no tension. An autosuture pursestring was applied and the staple line of the sigmoid colon was opened to allow passage of 25 mm and 29 mm sizers. ILS 29 stapler was used for anastomosis. The stapler was passed per rectally and was opened to direct the pin anterior to the staple line in the distal rectal stump. The anvil of the stapler was secured at the base using pursestring autosuture. An end-to-end anastomosis was performed. Rigid sigmoidoscopy was performed.There was no air leak on insufflation. The anastomosis was without any undue tension or torsion. The small bowel was run again from ligament of Treitz to terminal ileum. The back table was used with new drapes and gowns and gloves. The prior ostomy site was closed in 2 layers using 2-0 Maxon running sutures in 2 layers. The midline was closed with double-stranded #1 PDS x2 in a running fashion. Skin sam were applied. The sponge, instrument and needle count were correct x2. Prerenal wound VAC dressing applied. Patient tolerated the procedure well and was taken to postanesthesia care unit in stable condition
[2017-05-07 17:22] LABS: Glucose,Whole Blood 147 mg/dL (75-99)
[2017-05-07] MEDS: HEPARIN SODIUM,PORCINE 5,000 UNIT/ML 1 ML VIAL SQ SCH ×2 (18:13→23:57)
[2017-05-07 18:16] LABS: Basophils % (A) 0 %; CH 32.6; CHCM 33.4; Eosinophils # (A) 0.1 k/uL (0-0.7); Eosinophils % (A) 0 %; HCT 45.8 % (39.0-53.0); HDW 2.45; HGB 15.2 gm/dL (13.0-17.5); Luc # (Auto) 0.21; Luc % (Auto) 1; Lymphocytes # (A) 0.6 k/uL (1.0-4.8); Lymphocytes % (A) 4 %; MCH 32.5 pg (25.0-35.0); MCHC 33.3 g/dL (31.0-37.0); MCV 97.9 fL (80.0-100.0); Mean Platelet Volume 7.1; Monocytes # (A) 0.5 k/uL (0-1.0); Monocytes % (A) 3 %; Neutrophils # (A) 14.6 k/uL (1.3-7.7); Neutrophils % (A) 91 %; RBC 4.68 m/uL (4.30-5.90); RDW 12.9 % (11.5-15.5); WBC (Perox) 14.72
[2017-05-07 18:29] LABS: Anion Gap 8 mmol/L; Blood Urea Nitrogen 8 mg/dL (9-20); Calcium 8.9 mg/dL (8.4-10.2); Carbon Dioxide 25 mmol/L (22-30); Chloride 104 mmol/L (98-107); Glucose 136 mg/dL (74-99); Non-African American GFR(MDRD) >60 (>60 ml/min/1.73 sqM); Potassium 4.2 mmol/L (3.5-5.1); Sodium 137 mmol/L (137-145)
[2017-05-07] MEDS: ACETAMINOPHEN IV (For NPO) 1,000 MG in EMPTY BAG 1 BAG IVPB SCH (18:33)
[2017-05-07 19:54] LABS: Glucose,Whole Blood 131 mg/dL (75-99)
[2017-05-07] MEDS: FAMOTIDINE 20 MG/2 ML VIAL IV SCH (20:31)
[2017-05-07] MEDS: diphenhydrAMINE 50 MG/ML 1 ML VIAL IVP PRN (23:56)
[2017-05-08] MEDS: ACETAMINOPHEN IV (For NPO) 1,000 MG in EMPTY BAG 1 BAG IVPB SCH ×3 (04:37→12:07)
[2017-05-08] MEDS: BUPIVACAINE (PF) 0.5% 31.3 ML, HYDROMORPHONE (PF) 5 MG in SODIUM CHLORIDE 0.9% 218 ML EPIDURAL PRN (06:50)
[2017-05-08] MEDS: LACTATED RINGERS 1,000 ML IV SCH ×4 (07:14→20:07)
[2017-05-08] MEDS: diphenhydrAMINE 50 MG/ML 1 ML VIAL IVP PRN ×2 (07:19→16:55)
[2017-05-08 07:31] LABS: Glucose,Whole Blood 96 mg/dL (75-99)
[2017-05-08] MEDS: FAMOTIDINE 20 MG/2 ML VIAL IV SCH ×2 (07:33→20:11)
[2017-05-08] MEDS: HEPARIN SODIUM,PORCINE 5,000 UNIT/ML 1 ML VIAL SQ SCH ×2 (07:33→16:55)
[2017-05-08] MEDS: ALVIMOPAN 12 MG CAPSULE PO SCH ×2 (07:33→20:12)
[2017-05-08] MEDS: NICOTINE 14MG/24HR PATCH TRANSDERM SCH (07:33)
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
[2017-05-08] MEDS ORDERED: IPRATROPIUM-ALBUTEROL 3 ML NEB INHALATION PRN (10:40)
[2017-05-08 11:32] LABS: Glucose,Whole Blood 90 mg/dL (75-99)
[2017-05-08] MEDS: MIDODRINE 5 MG TAB PO SCH ×2 (12:09→16:54)
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
[2017-05-08] MEDS: SODIUM CHLORIDE 0.9% 1,000 ML IV SCH (20:07)
[2017-05-08 20:18] LABS: Glucose,Whole Blood 75 mg/dL (75-99)
--- NOTE | 2017-05-08 20:18 | P.PN ---
Progress Note - Text 05/08 2022 46-year-old male status post colostomy reversal by Dr. Gonzales. Patient has epidural solution running at 12 mL an hour with a VAS of 5. He had been ambulating all evening. Plan to continue epidural infusion
[2017-05-09] MEDS: BUPIVACAINE (PF) 0.5% 31.3 ML, HYDROMORPHONE (PF) 5 MG in SODIUM CHLORIDE 0.9% 218 ML EPIDURAL PRN ×2 (00:29→17:24)
[2017-05-09] MEDS: diphenhydrAMINE 50 MG/ML 1 ML VIAL IVP PRN ×2 (00:49→18:53)
[2017-05-09] MEDS: HEPARIN SODIUM,PORCINE 5,000 UNIT/ML 1 ML VIAL SQ SCH ×3 (01:02→16:06)
[2017-05-09] MEDS: LACTATED RINGERS 1,000 ML IV SCH ×2 (03:35→07:58)
[2017-05-09] MEDS: SODIUM CHLORIDE 0.9% 1,000 ML IV SCH ×2 (03:35→09:22)
[2017-05-09 07:20] LABS: Basophils # (A) 0.1 k/uL (0-0.2); Basophils % (A) 1 %; Eosinophils # (A) 0.2 k/uL (0-0.7); Eosinophils % (A) 2 %; HCT 42.5 % (39.0-53.0); Luc # (Auto) 0.25; Luc % (Auto) 3; Lymphocytes # (A) 2.5 k/uL (1.0-4.8); Lymphocytes % (A) 25 %; MCH 33.1 pg (25.0-35.0); MCHC 32.9 g/dL (31.0-37.0); MCV 100.4 fL (80.0-100.0); Monocytes # (A) 0.6 k/uL (0-1.0); Monocytes % (A) 6 %; Neutrophils # (A) 6.6 k/uL (1.3-7.7); Neutrophils % (A) 65 %; RBC 4.23 m/uL (4.30-5.90); RDW 13.1 % (11.5-15.5); WBC 10.2 k/uL (3.8-10.6); WBC (Perox) 10.41
[2017-05-09 07:48] LABS: ALT 28 U/L (21-72); AST 38 U/L (17-59); Alkaline Phosphatase 65 U/L (38-126); Anion Gap 6 mmol/L; Blood Urea Nitrogen 7 mg/dL (9-20); Calcium 8.6 mg/dL (8.4-10.2); Carbon Dioxide 29 mmol/L (22-30); Chloride 103 mmol/L (98-107); Glucose 62 mg/dL (74-99); Non-African American GFR(MDRD) >60 (>60 ml/min/1.73 sqM); Potassium 3.9 mmol/L (3.5-5.1); Sodium 138 mmol/L (137-145); Total Protein 5.4 g/dL (6.3-8.2)
[2017-05-09] MEDS ORDERED: DEXTROSE 5% IN WATER 1,000 ML IV ONE (08:14)
[2017-05-09] MEDS: NICOTINE 14MG/24HR PATCH TRANSDERM SCH (08:59)
[2017-05-09] MEDS: DEXTROSE 5%-0.45% NACL 1,000 ML IV SCH ×2 (08:59→17:45)
[2017-05-09] MEDS: MIDODRINE 5 MG TAB PO SCH ×3 (09:00→17:42)
[2017-05-09] MEDS: FAMOTIDINE 20 MG/2 ML VIAL IV SCH ×2 (09:00→21:55)
[2017-05-09] MEDS: ALVIMOPAN 12 MG CAPSULE PO SCH ×2 (09:00→21:55)
--- NOTE | 2017-05-09 09:56 | P.PN ---
Progress Note - Text 05/09 942 am 46-year-old male status post colostomy reversal by Dr. Gonzales. Epidural solution running at 12 mL an hour, patient still has complains of pain, I told him that he was maxed out on the solution rate he is able to ambulate well. Plan to continue epidural infusion
--- NOTE | 2017-05-09 11:39 | P.PN ---
<Cookie Rodriguez Peterson - Last Filed: 05/09/17 11:31> Subjective Progress Note Date: 05/09/17 46-year-old male being seen and examined at bedside resting in bed patient states he was up ambulating in the hallway yesterday did pass gas no stool indwelling Lynn catheter in place. Epidural for pain control being monitored by anesthesia. Patient states that he continues to have surgical discomfort. White count down 10.2 hemoglobin stable at 14 electrolytes within normal limits AST and ALT are not elevated did note the patient's blood sugar was low this morning at 62 IV fluid has been changed over to dextrose we'll monitor patient states he's been told he has hypoglycemia in the past postop May 07 exploratory laparotomy,colostomy takedown, low anterior anastomosis, rigid sigmoidoscopy, application of pervena wound VAC dressing. Objective - Vital Signs Vital signs: Vital Signs Temp 98.6 F 05/09/17 07:51 Pulse 93 05/09/17 07:51 Resp 16 05/09/17 07:51 BP 130/74 05/09/17 07:51 Pulse Ox 91 L 05/09/17 07:51 Intake & Output 05/08/17 05/09/17 05/09/17 18:59 06:59 18:59 Intake Total 625 1711.8 Output Total 800 1700 900 Balance -175 11.8 -900 Weight 65.771 kg Intake: IV 625 1500 Lactated Ringers 1,000 ml 625 1500 @ 125 mls/hr IV .Q8H [facility] [place] Rx#:[id number] Intake, IV Titration 211.8 Amount Bupivacaine (Pf) 0.5% 31. 211.8 3 ml Hydromorphone (Pf) 5 mg In Sodium Chloride 0. 9% 218 ml @ Per Protocol EPIDURAL .Q0M PRN Rx#: [id number] Output: Urine 800 1700 900 Uretheral (Lynn) 900 Other: Voiding Method Indwelling Catheter Indwelling Catheter Indwelling Catheter - Exam GENERAL APPEARANCE: Pleasant cooperative 46-year-old male currently resting in bed alert, oriented, in no acute distress. VITAL SIGNS: Reviewed reviewed HEENT: Head is normocephalic and atraumatic. Pupils are equal and reactive. The nares are patent. Oropharynx is clear without lesions. NECK: Supple without lymphadenopathy. Traches midline. HEART: S1, S2. Regular rate and rhythm. No murmur noted denying chest pain LUNGS: No crackles or wheezes are heard. Posterior diminished at the bases adequate air movement poor technique with the use of an incentive spirometer Achieving 500 needs coaching sats on room air 91% ABDOMEN: Soft, surgical tenderness appropriate abdominal binder in place nondistended few hypoactive bowel tones indwelling Lynn catheter adequate urine outputigns. No palpable organomegaly or masses.prevena wound VAC dressing to surgical site epidural catheter in place EXTREMITIES: Normal skin color and turgor. No cyanosis, rash, ulceration, clubbing or edema. Radial pedal pulses are 2/4 bilaterally.Venodyne's on bilateral lower extremities NEUROLOGICAL: No focal deficits. Strength and sensation are grossly intact. - Labs CBC & Chem 7: 05/09/17 06:54 05/09/17 06:54 Labs: Abnormal Lab Results - Last 24 Hours (Table) 05/09/17 05/09/17 Range/Units 06:54 06:54 RBC 4.23 L (4.30-5.90) m/uL MCV 100.4 H (80.0-100.0) fL BUN 7 L (9-20) mg/dL Glucose 62 L (74-99) mg/dL Total Protein 5.4 L (6.3-8.2) g/dL Albumin 2.8 L (3.5-5.0) g/dL Assessment and Plan Plan: Impression Status post May 07 exploratory laparotomy, colostomy takedown, low anterior anastomosis, rigid sigmoidoscopy, application of pervena wound VAC dressing Active nicotine dependency Leukocytosis likely due to a dose of Decadron given Episode January 2017 severe abdominal pain with sepsis with peritonitis with perforated rectum January 21 2017 perforated rectum repair diffuse fecal peritonitis with colostomy COPD stable no evidence of an exacerbation Hypoglycemia episodes Plan Continue postop surgical care Continue recommendations by medicine service defer to Pain control continue epidural for pain control per anesthesia DVT and GI prophylaxis Reinforce smoking sensation Increase activity Start clear liquid and monitor the response repeat labs in the morning Encourage the use of the incentive spirometer The above impression and plan of care have been discussed and directed by signing physician. Cookie Rodriguez nurse practitioner acting as scribe for signing physician. <Vivian Gonzales - Last Filed: 05/12/17 13:26> Objective - Vital Signs Vital signs: Vital Signs Temp 97.9 F 05/12/17 07:00 Pulse 86 05/12/17 07:00 Resp 16 05/12/17 07:00 BP 121/79 05/12/17 07:00 Pulse Ox 98 05/12/17 07:00 Intake & Output 05/11/17 05/12/17 05/12/17 18:59 06:59 18:59 Intake Total 480 1500 Balance 480 1500 Intake: Intake, IV Titration 1500 Amount Dextrose 5%-0.45% NaCl 1, 1500 000 ml @ 125 mls/hr IV . Q8H [facility] Rx#:[id number] Oral 480 Other: Voiding Method Toilet Urinal # Voids 3 - Labs CBC & Chem 7: 05/12/17 06:41 05/11/17 06:38 Labs: Abnormal Lab Results - Last 24 Hours (Table) 05/11/17 05/12/17 Range/Units 20:36 11:56 POC Glucose (mg/dL) 104 H 124 H (75-99) mg/dL Assessment and Plan Plan: Patient examined. Continue Lynn nd epidural. Pervena wound vac in place. Await bowel function. Check CBC, CMP in am
[2017-05-09 14:20] LABS: Appearance,Urine Clear (Clear); Bilirubin,Urine Negative (Negative); Glucose,Urine (UA) Negative (Negative); Ketones,Urine Negative (Negative); Leukocyte Esterase,Urine Negative (Negative); Nitrite,Urine Negative (Negative); Protein,Urine Negative (Negative); UA Billing (MACRO vs. MICRO) CHEM; Urobilinogen,Urine <2.0 mg/dL (<2.0)
[2017-05-09 14:41] LABS: Specific Gravity,Urine 1.002 (1.001-1.035)
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
--- NOTE | 2017-05-09 16:07 | US ---
EXAMINATION TYPE: US scrotum with doppler. Grayscale and color Doppler Duplex imaging performed of t he scrotum. DATE OF EXAM: 05/09/2017 COMPARISON: NONE CLINICAL HISTORY: pain r/o torsion. EXAM MEASUREMENTS: TESTICLES: Right Testicle: 3.7 x 1.9 x 3.1 cm Left Testicle: 4.3 x 2.2 x 3.1 cm EPIDIDYMIS HEAD: Right Epididymis: 0.8 cm Left Epididymis: 0.8 cm Patient has extreme pain in left testicle. Left shows increased vascularity when compared to right. Doppler performed to assess for testicular vascularity; good bilateral color flow and waveforms are s een. I Presence of hydroceles: Left measuring 2.2 x 1.3 x 1.7 Presence of varicoceles: Unable to assess due to patient extreme pain Comparison view image #18 shows asymmetric increased blood flow to left testicle versus opposite righ t. IMPRESSION: Asymmetric increased blood flow to left testicle is consistent with left-sided epididymi tis/orchitis in patient with left-sided pain.
[2017-05-09 20:49] LABS: Glucose,Whole Blood 137 mg/dL (75-99)
[2017-05-09] MEDS: DOXYCYCLINE 50 MG CAP PO SCH (21:55)
[2017-05-10] MEDS: HEPARIN SODIUM,PORCINE 5,000 UNIT/ML 1 ML VIAL SQ SCH ×3 (00:10→20:15)
[2017-05-10] MEDS: DEXTROSE 5%-0.45% NACL 1,000 ML IV SCH ×2 (00:10→08:08)
[2017-05-10 07:19] LABS: WBC 7.4 k/uL (3.8-10.6); WBC (Perox) 6.89
[2017-05-10 07:20] LABS: Basophils % (A) 1 %; CH 33.8; CHCM 34.5; Eosinophils # (A) 0.2 k/uL (0-0.7); Eosinophils % (A) 3 %; HCT 41.2 % (39.0-53.0); HDW 2.38; HGB 13.5 gm/dL (13.0-17.5); Luc # (Auto) 0.17; Luc % (Auto) 2; Lymphocytes # (A) 2.5 k/uL (1.0-4.8); Lymphocytes % (A) 34 %; MCH 32.3 pg (25.0-35.0); MCHC 32.8 g/dL (31.0-37.0); MCV 98.3 fL (80.0-100.0); Mean Platelet Volume 7.4; Monocytes # (A) 0.6 k/uL (0-1.0); Monocytes % (A) 8 %; Neutrophils # (A) 3.9 k/uL (1.3-7.7); Neutrophils % (A) 52 %; RBC 4.19 m/uL (4.30-5.90); RDW 13.7 % (11.5-15.5)
[2017-05-10 07:38] LABS: Glucose,Whole Blood 108 mg/dL (75-99)
[2017-05-10 07:41] LABS: ALT 33 U/L (21-72); AST 30 U/L (17-59); Alkaline Phosphatase 68 U/L (38-126); Anion Gap 5 mmol/L; Blood Urea Nitrogen 2 mg/dL (9-20); Calcium 8.8 mg/dL (8.4-10.2); Carbon Dioxide 29 mmol/L (22-30); Chloride 102 mmol/L (98-107); Glucose 96 mg/dL (74-99); Non-African American GFR(MDRD) >60 (>60 ml/min/1.73 sqM); Potassium 3.6 mmol/L (3.5-5.1); Sodium 136 mmol/L (137-145); Total Bilirubin 0.7 mg/dL (0.2-1.3); Total Protein 5.5 g/dL (6.3-8.2)
[2017-05-10] MEDS: diphenhydrAMINE 50 MG/ML 1 ML VIAL IVP PRN (08:08)
[2017-05-10] MEDS: NICOTINE 14MG/24HR PATCH TRANSDERM SCH (08:08)
[2017-05-10] MEDS: DOXYCYCLINE 50 MG CAP PO SCH ×2 (08:09→21:44)
[2017-05-10] MEDS: ALVIMOPAN 12 MG CAPSULE PO SCH ×2 (08:09→21:44)
[2017-05-10] MEDS: FAMOTIDINE 20 MG/2 ML VIAL IV SCH ×2 (08:09→21:44)
[2017-05-10] MEDS: MIDODRINE 5 MG TAB PO SCH ×3 (08:09→20:16)
[2017-05-10] MEDS: BUPIVACAINE (PF) 0.5% 31.3 ML, HYDROMORPHONE (PF) 5 MG in SODIUM CHLORIDE 0.9% 218 ML EPIDURAL PRN (11:25)
[2017-05-10 11:42] LABS: Glucose,Whole Blood 98 mg/dL (75-99)
--- NOTE | 2017-05-10 12:23 | P.PN ---
Subjective Progress Note Date: 05/10/17 Patient is a 46-year-old gentleman who is status post reversal of a colostomy on May 07. He had laparotomy with colostomy take down and a low anterior anastomosis. At this time the patient is passing flatus. He is ambulating in the chau. Objective - Vital Signs Vital signs: Vital Signs Temp 97.7 F 05/10/17 08:00 Pulse 93 05/10/17 08:00 Resp 18 05/10/17 08:00 BP 120/69 05/10/17 08:00 Pulse Ox 97 05/10/17 08:00 Intake & Output 05/09/17 05/10/17 05/10/17 18:59 06:59 18:59 Intake Total 1193 2040 816.2 Output Total 3500 1900 Balance -2307 140 816.2 Intake: IV 250 Lactated Ringers 1,000 ml 250 @ 125 mls/hr IV .Q8H [facility] Rx#:[id number] Intake, IV Titration 703 1500 216.2 Amount Bupivacaine (Pf) 0.5% 31. 203 216.2 3 ml Hydromorphone (Pf) 5 mg In Sodium Chloride 0. 9% 218 ml @ Per Protocol EPIDURAL .Q0M PRN Rx#: [id number] Dextrose 5% in Water 1, 500 000 ml @ 125 mls/hr IV . Q8H [facility] Rx#:[id number] Dextrose 5%-0.45% NaCl 1, 1500 000 ml @ 125 mls/hr IV . Q8H [facility] Rx#:[id number] Oral 240 540 600 Output: Urine 3500 1900 Uretheral (Lynn) 3500 1900 Other: Voiding Method Indwelling Catheter Indwelling Catheter Indwelling Catheter - Constitutional General appearance: Present: average body habitus - Respiratory Details: Decreased breath sounds at the bases - Cardiovascular Rhythm: regular Heart sounds: normal: S1, S2 - Gastrointestinal Gastrointestinal Comment(s): Dressings dry Hypoactive bowel sounds - Psychiatric Psychiatric: Present: A&O x's 3, appropriate affect - Labs CBC & Chem 7: 05/10/17 06:40 05/10/17 06:40 Labs: Abnormal Lab Results - Last 24 Hours (Table) 05/09/17 05/10/17 05/10/17 Range/Units 20:46 06:40 06:40 RBC 4.19 L (4.30-5.90) m/uL Sodium 136 L (137-145) mmol/L BUN 2 L (9-20) mg/dL POC Glucose (mg/dL) 137 H (75-99) mg/dL Total Protein 5.5 L (6.3-8.2) g/dL Albumin 2.8 L (3.5-5.0) g/dL 05/10/17 Range/Units 07:36 RBC (4.30-5.90) m/uL Sodium (137-145) mmol/L BUN (9-20) mg/dL POC Glucose (mg/dL) 108 H (75-99) mg/dL Total Protein (6.3-8.2) g/dL Albumin (3.5-5.0) g/dL Microbiology - Last 24 Hours (Table) 05/09/17 14:05 Urine Culture - Preliminary Urine,Catheterized Assessment and Plan Plan: Impression/plan: 1. Status post exploratory laparotomy reversal of colostomy May 07 2. Nicotine dependence 3. COPD Plan: 1. Continue recommendations as per medical service 2. DC epidural catheter 3. Clamp NG tube and if less than 100 mL@4 hours most likely DC 4. Use of incentive spirometer
--- NOTE | 2017-05-10 12:44 | P.PN ---
Progress Note - Text The patient does not have an NG tube Will DC epidural catheter and Lynn Continue to ambulate in chau
[2017-05-10] MEDS ORDERED: NALOXONE 0.4 MG/ML 1 ML VIAL IV PRN (12:46)
[2017-05-10] MEDS: HYDROmorphone PCA 5 MG/25 ML SYRINGE IV PRN (14:02)
[2017-05-10 16:30] LABS: Glucose,Whole Blood 109 mg/dL (75-99)
--- NOTE | 2017-05-10 16:41 | P.PN ---
Progress Note - Text Progress Note Date: 05/10/17 The patient's epidural catheter fell out today. The primary care team will assume pain control by oral and/or IV medications.
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
[2017-05-10 21:28] LABS: Glucose,Whole Blood 105 mg/dL (75-99)
[2017-05-11] MEDS: HEPARIN SODIUM,PORCINE 5,000 UNIT/ML 1 ML VIAL SQ SCH ×3 (00:23→16:08)
[2017-05-11] MEDS: HYDROmorphone PCA 5 MG/25 ML SYRINGE IV PRN ×2 (03:12→20:08)
[2017-05-11] MEDS: LACTATED RINGERS 1,000 ML IV SCH ×2 (06:31→07:00)
[2017-05-11] MEDS: DEXTROSE 5%-0.45% NACL 1,000 ML IV SCH ×4 (06:32→17:07)
[2017-05-11 07:03] LABS: Glucose,Whole Blood 104 mg/dL (75-99)
[2017-05-11 07:25] LABS: ALT 36 U/L (21-72); AST 32 U/L (17-59); Alkaline Phosphatase 70 U/L (38-126); Anion Gap 8 mmol/L; Blood Urea Nitrogen <2 mg/dL (9-20); Calcium 9.1 mg/dL (8.4-10.2); Carbon Dioxide 28 mmol/L (22-30); Chloride 102 mmol/L (98-107); Glucose 98 mg/dL (74-99); Non-African American GFR(MDRD) >60 (>60 ml/min/1.73 sqM); Potassium 3.2 mmol/L (3.5-5.1); Sodium 138 mmol/L (137-145); Total Bilirubin 0.7 mg/dL (0.2-1.3); Total Protein 5.9 g/dL (6.3-8.2)
[2017-05-11 07:29] LABS: Basophils % (A) 1 %; CH 32.9; CHCM 33.5; Eosinophils # (A) 0.2 k/uL (0-0.7); Eosinophils % (A) 3 %; HCT 43.9 % (39.0-53.0); HDW 2.45; HGB 14.6 gm/dL (13.0-17.5); Luc % (Auto) 3; Lymphocytes # (A) 2.4 k/uL (1.0-4.8); Lymphocytes % (A) 35 %; MCH 32.6 pg (25.0-35.0); MCHC 33.1 g/dL (31.0-37.0); MCV 98.5 fL (80.0-100.0); Mean Platelet Volume 7.4; Monocytes # (A) 0.5 k/uL (0-1.0); Monocytes % (A) 7 %; Neutrophils # (A) 3.6 k/uL (1.3-7.7); Neutrophils % (A) 52 %; RBC 4.46 m/uL (4.30-5.90); RDW 13.1 % (11.5-15.5); WBC 6.9 k/uL (3.8-10.6); WBC (Perox) 6.74
[2017-05-11] MEDS: NICOTINE 14MG/24HR PATCH TRANSDERM SCH (08:23)
[2017-05-11] MEDS: FAMOTIDINE 20 MG/2 ML VIAL IV SCH ×2 (08:23→20:28)
[2017-05-11] MEDS: ALVIMOPAN 12 MG CAPSULE PO SCH ×2 (08:23→20:28)
[2017-05-11] MEDS: DOXYCYCLINE 50 MG CAP PO SCH ×2 (08:23→20:28)
[2017-05-11] MEDS: MIDODRINE 5 MG TAB PO SCH ×3 (09:49→17:42)
--- NOTE | 2017-05-11 09:57 | P.PN ---
Subjective Patient is a 46-year-old gentleman who is status post reversal of a colostomy on May 07. He had laparotomy with colostomy take down and a low anterior anastomosis. At this time the patient is passing flatus. He is ambulating in the chau. Epidural catheter was removed yesterday and a AUTOMATIC QUILLING MACHINE OPERATOR is being utilized for pain control. The patient states he is uncomfortable without the epidural catheter. The patient is tolerating clear liquids with no nausea. Objective - Vital Signs Vital signs: Vital Signs Temp 97.5 F L 05/11/17 07:00 Pulse 79 05/11/17 07:00 Resp 16 05/11/17 07:00 BP 160/90 05/11/17 07:00 Pulse Ox 95 05/11/17 07:00 Intake & Output 05/10/17 05/11/17 05/11/17 18:59 06:59 18:59 Intake Total 3056.2 1500 Output Total 1700 Balance 1356.2 1500 Weight 65.771 kg Intake: Intake, IV Titration 1116.2 1500 Amount Bupivacaine (Pf) 0.5% 31. 216.2 3 ml Hydromorphone (Pf) 5 mg In Sodium Chloride 0. 9% 218 ml @ Per Protocol EPIDURAL .Q0M [facility] Rx#: [id number] Dextrose 5%-0.45% NaCl 1, 800 1500 000 ml @ 125 mls/hr IV . Q8H [facility] Rx#:[id number] cefTRIAXone 1,000 mg In 100 Sodium Chloride 0.9% 50 ml @ 100 mls/hr IVPB Q24HR [facility] Rx#:[id number] Oral 1940 Output: Urine 1700 Uretheral (Lynn) 400 Other: Voiding Method Indwelling Catheter - Constitutional General appearance: Present: thin - Respiratory Details: Decreased breath sounds at bases - Cardiovascular Rhythm: regular Heart sounds: normal: S1, S2 - Gastrointestinal Gastrointestinal Comment(s): Dressing clean and dry prevena wound vac in place General gastrointestinal: Present: decreased bowel sounds - Psychiatric Psychiatric: Present: A&O x's 3 - Labs CBC & Chem 7: 05/11/17 06:38 05/11/17 06:38 Labs: Abnormal Lab Results - Last 24 Hours (Table) 05/10/17 05/10/17 05/11/17 Range/Units 16:18 21:21 06:38 Potassium 3.2 L (3.5-5.1) mmol/L BUN <2 L (9-20) mg/dL POC Glucose (mg/dL) 109 H 105 H (75-99) mg/dL Total Protein 5.9 L (6.3-8.2) g/dL Albumin 3.1 L (3.5-5.0) g/dL 05/11/17 Range/Units 07:00 Potassium (3.5-5.1) mmol/L BUN (9-20) mg/dL POC Glucose (mg/dL) 104 H (75-99) mg/dL Total Protein (6.3-8.2) g/dL Albumin (3.5-5.0) g/dL Microbiology - Last 24 Hours (Table) 05/09/17 14:05 Urine Culture - Final Urine,Catheterized Assessment and Plan Plan: Impression/plan: 1. Status post exploratory laparotomy reversal of colostomy May 07 2. Nicotine dependence 3. COPD Plan: 1. Continue recommendations as per medical service 2. Pain control as per AUTOMATIC QUILLING MACHINE OPERATOR 3. Ambulate in chau 4. Use of incentive spirometer
[2017-05-11] MEDS: POTASSIUM CHLORIDE 10 MEQ, LIDOCAINE 2% INJ 10 MG in SODIUM CHLORIDE 0.9% 100 ML IVPB SCH ×2 (10:16→12:19)
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
[2017-05-11 11:22] LABS: Glucose,Whole Blood 96 mg/dL (75-99)
[2017-05-11 16:33] LABS: Glucose,Whole Blood 98 mg/dL (75-99)
[2017-05-11 20:39] LABS: Glucose,Whole Blood 104 mg/dL (75-99)
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
[2017-05-12] MEDS: HEPARIN SODIUM,PORCINE 5,000 UNIT/ML 1 ML VIAL SQ SCH ×4 (00:13→23:10)
[2017-05-12 07:18] LABS: Basophils % (A) 0 %; CH 34.1; CHCM 34.8; Eosinophils # (A) 0.2 k/uL (0-0.7); Eosinophils % (A) 3 %; HCT 43.2 % (39.0-53.0); HDW 2.44; HGB 14.3 gm/dL (13.0-17.5); Luc # (Auto) 0.11; Luc % (Auto) 2; Lymphocytes # (A) 1.8 k/uL (1.0-4.8); Lymphocytes % (A) 31 %; MCH 32.5 pg (25.0-35.0); MCHC 33.1 g/dL (31.0-37.0); MCV 98.3 fL (80.0-100.0); Mean Platelet Volume 7.3; Monocytes # (A) 0.4 k/uL (0-1.0); Monocytes % (A) 8 %; Neutrophils # (A) 3.3 k/uL (1.3-7.7); Neutrophils % (A) 57 %; RBC 4.39 m/uL (4.30-5.90); RDW 13.8 % (11.5-15.5); WBC 5.7 k/uL (3.8-10.6); WBC (Perox) 5.87
[2017-05-12 07:49] LABS: Glucose,Whole Blood 98 mg/dL (75-99)
[2017-05-12] MEDS: NICOTINE 14MG/24HR PATCH TRANSDERM SCH (08:25)
[2017-05-12] MEDS: FAMOTIDINE 20 MG/2 ML VIAL IV SCH (08:26)
[2017-05-12] MEDS: DOXYCYCLINE 50 MG CAP PO SCH ×2 (08:26→22:01)
[2017-05-12] MEDS: MIDODRINE 5 MG TAB PO SCH ×3 (08:26→17:47)
[2017-05-12] MEDS: ALVIMOPAN 12 MG CAPSULE PO SCH ×2 (08:27→22:01)
[2017-05-12] MEDS: DEXTROSE 5%-0.45% NACL 1,000 ML IV SCH ×2 (08:33→11:48)
[2017-05-12] MEDS: LACTATED RINGERS 1,000 ML IV SCH (08:34)
[2017-05-12 12:00] LABS: Glucose,Whole Blood 124 mg/dL (75-99)
[2017-05-12] MEDS ORDERED: ONDANSETRON 4 MG TAB PO PRN (12:56)
[2017-05-12] MEDS ORDERED: POTASSIUM CHLORIDE 20 MEQ, LIDOCAINE 2% INJ 20 MG in SODIUM CHLORIDE 0.9% 100 ML IVPB ONE (13:22)
[2017-05-12] MEDS ORDERED: HYDROmorphone 1 MG/ML 1 ML SYRINGE IVP PRN (13:25)
--- NOTE | 2017-05-12 14:22 | P.PN ---
Subjective Progress Note Date: 05/12/17 46-year-old male patient seen and examined at bedside this morning nursing reports the patient is needing much encouragement to ambulate in the chau. Patient continues to report having surgical discomfort. 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 Patient reportedly was tolerating a clear liquid diet. Passing gas no stool. Reports no nausea no vomiting patient received poor tingly experiencing less testicle pain. Patient has been seen by urology being treated for epididymitis. urology is recommending oral antibiotic and there is no clear-cut infection antibiotic for 5-7 days. Could benefit from an anti-inflammatory like Motrin as well as ice packs for treatment of the epididymitis. The patient did have an ultrasound of the testicles that showed no evidence of an abscess postop May 07 exploratory laparotomy,colostomy takedown, low anterior anastomosis, rigid sigmoidoscopy, application of pervena wound VAC dressing. Objective - Vital Signs Vital signs: Vital Signs Temp 97.9 F 05/12/17 07:00 Pulse 86 05/12/17 07:00 Resp 16 05/12/17 07:00 BP 121/79 05/12/17 07:00 Pulse Ox 98 05/12/17 07:00 Intake & Output 05/11/17 05/12/17 05/12/17 18:59 06:59 18:59 Intake Total 480 1500 Balance 480 1500 Intake: Intake, IV Titration 1500 Amount Dextrose 5%-0.45% NaCl 1, 1500 000 ml @ 125 mls/hr IV . Q8H [facility] Rx#:[id number] Oral 480 Other: Voiding Method Toilet Urinal # Voids 3 - Exam GENERAL APPEARANCE: 46-year-old male currently resting in bed alert, oriented , in no acute distress. VITAL SIGNS: Reviewed reviewed HEENT: Head is normocephalic and atraumatic. Pupils are equal and reactive. The nares are patent. Oropharynx is clear without lesions. NECK: Supple without lymphadenopathy. Traches midline. HEART: S1, S2. Regular rate and rhythm. No murmur noted denying chest pain LUNGS: No crackles or wheezes are heard. Posterior diminished at the bases adequate air movement sats on room air 98% ABDOMEN: Soft, surgical tenderness appropriate abdominal binder in place nondistended few hypoactive bowel tones .prevena wound VAC dressing to surgical site reports no nausea vomiting tolerating the clear liquid diet no stool passing gas rectally EXTREMITIES: Normal skin color and turgor. No cyanosis, rash, ulceration, clubbing or edema. Radial pedal pulses are 2/4 bilaterally.Venodyne's on bilateral lower extremities NEUROLOGICAL: No focal deficits. Strength and sensation are grossly intact. - Labs CBC & Chem 7: 05/12/17 06:41 05/11/17 06:38 Labs: Abnormal Lab Results - Last 24 Hours (Table) 05/11/17 05/12/17 Range/Units 20:36 11:56 POC Glucose (mg/dL) 104 H 124 H (75-99) mg/dL Assessment and Plan Plan: Impression Status post May 07 exploratory laparotomy, colostomy takedown, low anterior anastomosis, rigid sigmoidoscopy, application of pervena wound VAC dressing Active nicotine dependency Leukocytosis likely due to a dose of Decadron given Episode January 2017 severe abdominal pain with sepsis with peritonitis with perforated rectum January 21 2017 perforated rectum repair diffuse fecal peritonitis with colostomy COPD stable no evidence of an exacerbation Hypoglycemia episodes Hypokalemia Left testicle pain likely due to left epididymitis Plan Potassium corrected repeat labs in the morning Continue recommendations by urology doxycycline antibiotic limited to 5-7 days in the absence of clear-cut evidence of infection Continue postop surgical care Continue recommendations by medicine service defer to DVT and GI prophylaxis Reinforce smoking sensation Increase activity Advance diet to full liquid monitor response repeat labs in the morning Encourage the use of the incentive spirometer The above impression and plan of care have been discussed and directed by signing physician. Cookie Rodriguez nurse practitioner acting as scribe for signing physician.
[2017-05-12] MEDS: 0.9% NACL WITH KCL 20 MEQ/L 1,000 ML IV SCH (15:00)
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
[2017-05-12] MEDS: KETOROLAC 30 MG/ML 1 ML VIAL IVP SCH ×2 (16:25→23:10)
[2017-05-12 16:58] LABS: Glucose,Whole Blood 92 mg/dL (75-99)
[2017-05-12 19:54] LABS: Glucose,Whole Blood 125 mg/dL (75-99)
[2017-05-12] MEDS: HYDROcodone/APAP 7.5-325MG 1 EACH TAB PO PRN (22:07)
[2017-05-12] MEDS: FAMOTIDINE 20 MG TAB PO SCH (23:02)
[2017-05-13] MEDS: 0.9% NACL WITH KCL 20 MEQ/L 1,000 ML IV SCH (04:48)
[2017-05-13] MEDS: KETOROLAC 30 MG/ML 1 ML VIAL IVP SCH ×2 (06:32→11:38)
[2017-05-13 07:11] LABS: Glucose,Whole Blood 92 mg/dL (75-99)
[2017-05-13 07:17] LABS: Basophils # (A) 0.1 k/uL (0-0.2); Basophils % (A) 1 %; CHCM 33.3; Eosinophils # (A) 0.3 k/uL (0-0.7); Eosinophils % (A) 4 %; HCT 44.8 % (39.0-53.0); HDW 2.47; HGB 14.7 gm/dL (13.0-17.5); Luc # (Auto) 0.19; Luc % (Auto) 3; Lymphocytes # (A) 2.8 k/uL (1.0-4.8); Lymphocytes % (A) 41 %; MCH 32.5 pg (25.0-35.0); MCHC 32.7 g/dL (31.0-37.0); MCV 99.5 fL (80.0-100.0); Mean Platelet Volume 6.8; Monocytes # (A) 0.4 k/uL (0-1.0); Monocytes % (A) 6 %; Neutrophils % (A) 44 %; RDW 13.3 % (11.5-15.5); WBC 6.7 k/uL (3.8-10.6); WBC (Perox) 7.01
[2017-05-13 07:45] LABS: ALT 34 U/L (21-72); AST 26 U/L (17-59); Alkaline Phosphatase 69 U/L (38-126); Anion Gap 9 mmol/L; Blood Urea Nitrogen 2 mg/dL (9-20); Calcium 9.6 mg/dL (8.4-10.2); Carbon Dioxide 25 mmol/L (22-30); Chloride 110 mmol/L (98-107); Glucose 82 mg/dL (74-99); Non-African American GFR(MDRD) >60 (>60 ml/min/1.73 sqM); Potassium 3.9 mmol/L (3.5-5.1); Sodium 144 mmol/L (137-145); Total Bilirubin 0.6 mg/dL (0.2-1.3); Total Protein 6.5 g/dL (6.3-8.2)
[2017-05-13 08:16] VITALS: BP 122/71; PULSE 70; RESP 16; TEMP 97.7
[2017-05-13] MEDS: DOXYCYCLINE 50 MG CAP PO SCH (09:10)
[2017-05-13] MEDS: ALVIMOPAN 12 MG CAPSULE PO SCH (09:10)
[2017-05-13] MEDS: MIDODRINE 5 MG TAB PO SCH (09:10)
[2017-05-13] MEDS: NICOTINE 14MG/24HR PATCH TRANSDERM SCH (09:10)
[2017-05-13] MEDS: HEPARIN SODIUM,PORCINE 5,000 UNIT/ML 1 ML VIAL SQ SCH (09:10)
[2017-05-13] MEDS: FAMOTIDINE 20 MG TAB PO SCH (09:10)
[2017-05-13] MEDS: HYDROcodone/APAP 7.5-325MG 1 EACH TAB PO PRN (10:13)
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
== END 2017-05-13 12:11 | disposition home or self-care (01) | DRG 331 ==
LOC: 2ORWHC 09:28 → 3SUR 15:40
PROVIDERS: ADMIT Surgery; ATTEND Surgery
PROC: 0DQM0ZZ Repair Descending Colon, Open Approach (ICD-10-PCS; principal; 2017-05-07 11:45)
PROC: 0DQP0ZZ Repair Rectum, Open Approach (ICD-10-PCS; principal; 2017-05-07 11:45)
DX: Z43.3 Encounter for attention to colostomy (principal); I10 Essential (primary) hypertension; E87.6 Hypokalemia; F17.200 Nicotine dependence, unspecified, uncomplicated; G40.909 Epilepsy, unspecified, not intractable, without status epilepticus; J44.9 Chronic obstructive pulmonary disease, unspecified; K21.9 Gastro-esophageal reflux disease without esophagitis; N45.3 Epididymo-orchitis; Z82.49 Family history of ischemic heart disease and other diseases of the circulatory system; Z82.5 Family history of asthma and other chronic lower respiratory diseases; I95.1 Orthostatic hypotension; Z91.030 Bee allergy status
CPT/HCPCS: 76870; 80048; 80053; 81003; 85025; 86850; 86900; 86901; 87086; 87491; 87591; 93975; 94760

== ENCOUNTER 2017-11-20 15:45 | Emergency (ER) | payer OTHER ==
[2017-11-20 15:51] VITALS: BP 128/79; PULSE 90; RESP 20; TEMP 97.7
--- NOTE | 2017-11-20 16:54 | XR ---
Left shoulder HISTORY: Left shoulder pain 3 views of the left shoulder Bone mineralization, joint spaces and alignment are maintained. Left lung apex as visualized is celia l. There is no fracture or dislocation. IMPRESSION: Normal left shoulder.
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
== END 2017-11-20 17:44 | disposition home or self-care (01) ==
LOC: EC 15:45
DX: M25.512 Pain in left shoulder (principal); F17.200 Nicotine dependence, unspecified, uncomplicated; Z91.030 Bee allergy status
CPT/HCPCS: 99283

== ENCOUNTER 2017-12-04 12:13 | Observation (INO) | payer OTHER ==
[2017-12-04] MEDS ORDERED: ASPIRIN 81 MG PO STA (12:35)
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
[2017-12-04 13:04] LABS: Basophils % (A) 0 %; Eosinophils # (A) 0.1 k/uL (0-0.7); Eosinophils % (A) 1 %; HCT 42.6 % (39.0-53.0); HGB 14.7 gm/dL (13.0-17.5); Lymphocytes # (A) 1.7 k/uL (1.0-4.8); Lymphocytes % (A) 22 %; MCHC 34.6 g/dL (31.0-37.0); MCV 92.5 fL (80.0-100.0); Mean Platelet Volume 6.7; Monocytes # (A) 0.3 k/uL (0-1.0); Monocytes % (A) 4 %; Neutrophils # (A) 5.5 k/uL (1.3-7.7); Neutrophils % (A) 72 %; Platelet Count 290 k/uL (150-450); RBC 4.61 m/uL (4.30-5.90); RDW 12.5 % (11.5-15.5); WBC 7.7 k/uL (3.8-10.6)
[2017-12-04 13:17] LABS: ALT 17 U/L (21-72); AST 24 U/L (17-59); Albumin 4.1 g/dL (3.5-5.0); Alkaline Phosphatase 68 U/L (38-126); Anion Gap 10 mmol/L; Blood Urea Nitrogen 6 mg/dL (9-20); Calcium 9.3 mg/dL (8.4-10.2); Carbon Dioxide 22 mmol/L (22-30); Chloride 108 mmol/L (98-107); Glucose 117 mg/dL (74-99); Lipase 89 U/L (23-300); Magnesium 2.2 mg/dL (1.6-2.3); Potassium 4.2 mmol/L (3.5-5.1); Sodium 140 mmol/L (137-145); Total Bilirubin 0.7 mg/dL (0.2-1.3); Total Protein 6.7 g/dL (6.3-8.2)
[2017-12-04 13:18] LABS: D-Dimer 0.48 mg/L FEU (<0.60)
[2017-12-04 13:19] LABS: Partial Thromboplastin Time 27.2 sec (22.0-30.0)
--- NOTE | 2017-12-04 13:21 | XR ---
EXAMINATION TYPE: XR chest 2V DATE OF EXAM: 12/04/2017 COMPARISON: Prior chest x-ray 04/21/2017 HISTORY: Chest pain TECHNIQUE: Frontal and lateral views of the chest are obtained. FINDINGS: There is no focal air space opacity, pleural effusion, or pneumothorax seen. The interstit ium is increased. Strand-like densities persist at the right lung base which likely represents scar. The cardiac silhouette size is within normal limits. The osseous structures are intact. IMPRESSION: No acute cardiopulmonary process. Some probable scarring, possible interstitial lung dis ease.
[2017-12-04 13:24] LABS: Creatine Kinase 127 U/L (55-170)
[2017-12-04 13:26] VITALS: PULSE 70
[2017-12-04 13:37] LABS: Creatine Kinase MB 0.5 ng/mL (0.0-2.4); Troponin I <0.012 ng/mL (0.000-0.034)
[2017-12-04] MEDS ORDERED: NICOTINE 21MG/24HR PATCH TRANSDERM STA (14:10)
[2017-12-04] MEDS ORDERED: HEPARIN SODIUM,PORCINE 5,000 UNIT/ML 1 ML VIAL IV ONE (14:11)
[2017-12-04] MEDS ORDERED: NITROGLYCERIN SL TABS 0.4 MG TAB SUBLINGUAL PRN (14:11)
[2017-12-04] MEDS ORDERED: HEPARIN SOD,PORK IN 0.45% NACL 25,000 UNIT in 0.45% NACL 1 500ML.BAG IV SCH (14:15)
[2017-12-04 14:33] VITALS: BP 127/69; RESP 16; TEMP 98.2
[2017-12-05] MEDS ORDERED: ASPIRIN 325 MG TAB PO SCH (09:00)
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
== END 2017-12-04 15:40 | disposition left against medical advice (07) ==
LOC: EC 12:13 → 3OBS 14:39
PROVIDERS: ADMIT Internal Medicine; ATTEND Internal Medicine
DX: R07.89 Other chest pain (principal); I95.1 Orthostatic hypotension; J44.9 Chronic obstructive pulmonary disease, unspecified; F17.200 Nicotine dependence, unspecified, uncomplicated; R45.4 Irritability and anger; K21.9 Gastro-esophageal reflux disease without esophagitis; G43.909 Migraine, unspecified, not intractable, without status migrainosus; G40.909 Epilepsy, unspecified, not intractable, without status epilepticus; Z98.84 Bariatric surgery status; Z91.030 Bee allergy status; Z87.820 Personal history of traumatic brain injury; Z82.5 Family history of asthma and other chronic lower respiratory diseases; Z83.79 Family history of other diseases of the digestive system; Z82.61 Family history of arthritis; Z82.49 Family history of ischemic heart disease and other diseases of the circulatory system; Z53.20 Procedure and treatment not carried out because of patient's decision for unspecified reasons
CPT/HCPCS: 99285 ×2; 36415; 93005; 85379; 83880; 80053; 82550; 82553; 83690; 83735; 84484; 85025; 85610; 85730; 71046; G0378

== ENCOUNTER 2018-01-13 12:56 | Emergency (ER) | payer OTHER ==
[2018-01-13 13:00] VITALS: RESP 18
[2018-01-13] MEDS ORDERED: SODIUM CHLORIDE 0.9% 500 ML IV ONE (13:04)
[2018-01-13] MEDS ORDERED: diphenhydrAMINE 50 MG/ML 1 ML VIAL IVP STA (13:04)
[2018-01-13] MEDS ORDERED: methylPREDNISolone SOD SUCCI 125 MG/2 ML VIAL IV STA (13:04)
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
[2018-01-13 14:48] VITALS: BP 101/53; PULSE 67; TEMP 97.5
== END 2018-01-13 15:10 | disposition home or self-care (01) ==
LOC: EC 12:56
DX: T63.441A Toxic effect of venom of bees, accidental (unintentional), initial encounter (principal); F17.200 Nicotine dependence, unspecified, uncomplicated; Z91.030 Bee allergy status; Z93.3 Colostomy status
CPT/HCPCS: 99283; 96374; 96375; 96361; J1200; J2930

== ENCOUNTER 2018-05-17 15:10 | Emergency (ER) | payer OTHER ==
[2018-05-17] MEDS ORDERED: ONDANSETRON 4 MG/2 ML VIAL IVP STA (16:13)
[2018-05-17] MEDS ORDERED: SODIUM CHLORIDE 0.9% 1,000 ML IV STA ×2 (16:13)
[2018-05-17] MEDS ORDERED: KETOROLAC 30 MG/ML 1 ML VIAL IVP STA (16:13)
[2018-05-17 16:58] LABS: Basophils % (A) 0 %; Eosinophils # (A) 0.1 k/uL (0-0.7); Eosinophils % (A) 2 %; HCT 44.5 % (39.0-53.0); HGB 14.8 gm/dL (13.0-17.5); Lymphocytes % (A) 29 %; MCHC 33.3 g/dL (31.0-37.0); MCV 96.2 fL (80.0-100.0); Mean Platelet Volume 7.5; Monocytes # (A) 0.4 k/uL (0-1.0); Monocytes % (A) 5 %; Neutrophils # (A) 4.3 k/uL (1.3-7.7); Neutrophils % (A) 62 %; Platelet Count 238 k/uL (150-450); RBC 4.63 m/uL (4.30-5.90); RDW 12.5 % (11.5-15.5); WBC 6.9 k/uL (3.8-10.6)
[2018-05-17 17:08] LABS: Partial Thromboplastin Time 26.7 sec (22.0-30.0); Prothrombin Time 9.9 sec (9.0-12.0)
--- NOTE | 2018-05-17 17:08 | XR ---
EXAMINATION TYPE: XR shoulder complete RT DATE OF EXAM: 05/17/2018 CLINICAL HISTORY: Shoulder pain TECHNIQUE: Three views of the right shoulder are obtained. COMPARISON: None. FINDINGS: I see no fracture nor dislocation. Glenohumeral joint is anatomic. There are no pathologic calcifications. IMPRESSION: Negative right shoulder exam.
[2018-05-17 17:10] LABS: ALT 20 U/L (21-72); AST 23 U/L (17-59); Albumin 3.9 g/dL (3.5-5.0); Alkaline Phosphatase 66 U/L (38-126); Amylase 79 U/L (30-110); Anion Gap 7 mmol/L; Blood Urea Nitrogen 9 mg/dL (9-20); Calcium 9.6 mg/dL (8.4-10.2); Carbon Dioxide 28 mmol/L (22-30); Chloride 107 mmol/L (98-107); Glucose 78 mg/dL (74-99); Lipase 98 U/L (23-300); Potassium 4.2 mmol/L (3.5-5.1); Sodium 142 mmol/L (137-145); Total Bilirubin 0.8 mg/dL (0.2-1.3); Total Protein 6.9 g/dL (6.3-8.2)
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
--- NOTE | 2018-05-17 17:15 | CT ---
EXAMINATION TYPE: CT abdomen pelvis w con DATE OF EXAM: 05/17/2018 COMPARISON: 03/20/2017 HISTORY: Umbilical abdominal pain CT DLP: 526.5 mGycm Automated exposure control for dose reduction was used. TECHNIQUE: Helical acquisition of images was performed from the lung bases through the pelvis. CONTRAST: Performed without Oral Contrast and without and with IV Contrast, patient injected with 100 mL of Iso rajwinder 300. FINDINGS: Lung bases are clear. There is no pleural effusion. Heart size is normal. Liver spleen pancreas appear normal. Bile ducts are not dilated. There is tiny amount of fluid aroun d the fundus of the gallbladder. There is no adrenal mass. Kidneys show satisfactory contrast opacification. There is no hydronephrosi s. Ureters appear normal. There is 1 cm cortical cyst posterior right kidney. There is no retroperito santos adenopathy. There is no ascites. There is no mesenteric adenopathy or edema. I see no intestinal wall thickening. There are no dilated loops. Appendix appears normal. Bladder distends smoothly. The re is surgery at the rectosigmoid junction. There is no evidence of a pelvic mass. There is no inguin al hernia. Abdominal aorta is atheromatous. There is minimal fat stranding around the umbilicus. This appears unchanged. IMPRESSION: THERE IS REVERSAL OF THE COLOSTOMY COMPARED TO OLD EXAM. THERE IS CLEARING OF THE DILATED SMALL BOWEL COMPARED TO OLD EXAM. RIGHT RENAL CORTICAL CYST IS SMALLER THAN OLD EXAM. NO SIGN OF ACUTE ABDOMEN A ND PELVIS. ATHEROSCLEROTIC VASCULAR DISEASE.
[2018-05-17 17:38] LABS: Appearance,Urine Clear (Clear); Bilirubin,Urine Negative (Negative); Blood,Urine Negative (Negative); Color,Urine Light Yellow; Glucose,Urine (UA) Negative (Negative); Ketones,Urine Negative (Negative); Leukocyte Esterase,Urine Negative (Negative); Nitrite,Urine Negative (Negative); PH, Urine 7.5 (5.0-8.0); Protein,Urine Negative (Negative); Specific Gravity,Urine 1.012 (1.001-1.035); Urobilinogen,Urine <2.0 mg/dL (<2.0)
[2018-05-17 18:14] VITALS: BP 109/80; PULSE 70; RESP 16; TEMP 97.9
== END 2018-05-17 18:22 | disposition home or self-care (01) ==
LOC: EC 15:10
DX: S46.912A Strain of unspecified muscle, fascia and tendon at shoulder and upper arm level, left arm, initial encounter (principal); R10.9 Unspecified abdominal pain; J44.9 Chronic obstructive pulmonary disease, unspecified; F17.200 Nicotine dependence, unspecified, uncomplicated; Z98.84 Bariatric surgery status; Z91.030 Bee allergy status; X50.9XXA Other and unspecified overexertion or strenuous movements or postures, initial encounter; Y92.69 Other specified industrial and construction area as the place of occurrence of the external cause; Y99.0 Civilian activity done for income or pay
CPT/HCPCS: 36415; 80053; 82150; 83690; 85025; 85610; 85730; 81003; 73030; 74177; 99285; 96374; 96375; 96361; J2405; J1885; Q9967

== ENCOUNTER 2018-11-10 20:50 | Emergency (ER) | payer OTHER ==
[2018-11-10] MEDS ORDERED: BUPIVACAINE (PF) 0.5% 30 ML VIAL SQ STA (21:51)
[2018-11-10] MEDS ORDERED: PENICILLIN VK 500MG STARTER 4 TAB BTL PO STA (21:51)
[2018-11-10] MEDS ORDERED: ACET/COD 300 MG/30 MG STARTER PACK 6 TAB BTL PO STA (22:41)
[2018-11-10] MEDS ORDERED: IBUPROFEN 600 MG TAB PO STA (22:41)
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
[2018-11-10 22:53] VITALS: BP 174/92; PULSE 77; RESP 16; TEMP 97
== END 2018-11-10 22:56 | disposition home or self-care (01) ==
LOC: EC 20:50
DX: K08.89 Other specified disorders of teeth and supporting structures (principal); S02.5XXA Fracture of tooth (traumatic), initial encounter for closed fracture; F17.200 Nicotine dependence, unspecified, uncomplicated; Z91.030 Bee allergy status; X58.XXXA Exposure to other specified factors, initial encounter
CPT/HCPCS: 64400; 99282

== ENCOUNTER 2019-05-25 16:07 | Emergency (ER) | payer MEDICARE, OTHER ==
[2019-05-25] MEDS ORDERED: SODIUM CHLORIDE 0.9% 1,000 ML IV STA (17:33)
[2019-05-25] MEDS ORDERED: KETOROLAC 60 MG/2 ML VIAL IVP STA (17:35)
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
--- NOTE | 2019-05-25 18:31 | CT ---
EXAMINATION TYPE: CT abdomen pelvis wo con DATE OF EXAM: 05/25/2019 COMPARISON: 05/17/2018 HISTORY: low abdominal pain, testicular pain CT DLP: 466 mGycm Automated exposure control for dose reduction was used. TECHNIQUE: Helical acquisition of images was performed from the lung bases through the pelvis. FINDINGS: There is some mild atelectasis at the right posterior lung base. There is no pleural effusion. Heart size is normal. There is no pericardial effusion. There are multiple small gallstones. Bile ducts are not dilated. Liver shows no definite focal defect . Spleen appears normal. Stomach is intact. There is no evidence of pancreatic mass. There is no adrenal mass. Kidneys show normal size and contour. There is no hydronephrosis. There is no retroperitoneal adenopathy. Abdominal aorta is atheromatous. Appendix appears normal. There is no ascites or free air. There is no sign of a bowel obstruction. There is no mesenteric edema. Bladder d istends smoothly. There is prostatic calcification. There is no inguinal hernia. There is no evidence of scrotal hydrocele. Lumbar vertebra have normal alignment. Disc spaces are fairly normal. Bony pelvis appears intact. I s ee no bony destructive process. There is apparent rectal surgery with anastomosis. IMPRESSION: THERE IS MILD ATELECTASIS AT THE RIGHT POSTERIOR LUNG BASE THAT IS A CHANGE COMPARED TO OLD EXAM. NO ACUTE ABNORMALITY WITHIN THE ABDOMEN PELVIS. NORMAL APPENDIX.
[2019-05-25 18:46] LABS: Basophils % (A) 0 %; Eosinophils # (A) 0.1 k/uL (0-0.7); Eosinophils % (A) 1 %; HCT 43.9 % (39.0-53.0); HGB 15.1 gm/dL (13.0-17.5); Lymphocytes # (A) 2.5 k/uL (1.0-4.8); Lymphocytes % (A) 28 %; MCH 33.6 pg (25.0-35.0); MCHC 34.5 g/dL (31.0-37.0); MCV 97.4 fL (80.0-100.0); Mean Platelet Volume 6.4; Monocytes # (A) 0.6 k/uL (0-1.0); Monocytes % (A) 7 %; Neutrophils # (A) 5.5 k/uL (1.3-7.7); Neutrophils % (A) 61 %; Platelet Count 264 k/uL (150-450); RBC 4.51 m/uL (4.30-5.90); RDW 12.4 % (11.5-15.5); WBC 8.9 k/uL (3.8-10.6)
[2019-05-25 18:51] LABS: Appearance,Urine Cloudy (Clear); Bilirubin,Urine Negative (Negative); Blood,Urine Negative (Negative); Color,Urine Yellow; Glucose,Urine (UA) Negative (Negative); Ketones,Urine Negative (Negative); Leukocyte Esterase,Urine Negative (Negative); Mucus,Urine Rare /hpf; Nitrite,Urine Negative (Negative); Protein,Urine Negative (Negative); RBC,Urine <1 /hpf (0-5); Specific Gravity,Urine 1.014 (1.001-1.035); Urobilinogen,Urine <2.0 mg/dL (<2.0); WBC,Urine 1 /hpf (0-5)
[2019-05-25 19:04] LABS: ALT 22 U/L (21-72); AST 24 U/L (17-59); African American GFR (CKD) >90 (>60 ml/min/1.73 sqM); Albumin 4.3 g/dL (3.5-5.0); Alkaline Phosphatase 74 U/L (38-126); Amylase 83 U/L (30-110); Anion Gap 7 mmol/L; Blood Urea Nitrogen 7 mg/dL (9-20); Calcium 9.8 mg/dL (8.4-10.2); Carbon Dioxide 28 mmol/L (22-30); Chloride 105 mmol/L (98-107); Glucose 76 mg/dL (74-99); Potassium 4.1 mmol/L (3.5-5.1); Sodium 140 mmol/L (137-145); Total Bilirubin 0.4 mg/dL (0.2-1.3); Total Protein 7.3 g/dL (6.3-8.2)
[2019-05-25 19:26] VITALS: BP 132/62; PULSE 70; RESP 16; TEMP 98.6
== END 2019-05-25 19:20 | disposition home or self-care (01) ==
LOC: EC 16:07
DX: R10.9 Unspecified abdominal pain (principal); N50.819 Testicular pain, unspecified; M54.9 Dorsalgia, unspecified; F17.200 Nicotine dependence, unspecified, uncomplicated; Z91.030 Bee allergy status; Z87.19 Personal history of other diseases of the digestive system; Z98.84 Bariatric surgery status; Z83.79 Family history of other diseases of the digestive system
CPT/HCPCS: 99284; 96374; 96361; 36415; 80053; 82150; 83690; 85025; 81001; 74176; J1885

== ENCOUNTER 2020-02-21 12:14 | Observation (INO) | payer OTHER ==
[2020-02-21] MEDS ORDERED: SODIUM CHLORIDE 0.9% 1,000 ML IV STA ×2 (12:59)
[2020-02-21] MEDS ORDERED: ONDANSETRON 4 MG/2 ML VIAL IVP STA (13:04)
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
--- NOTE | 2020-02-21 13:38 | XR ---
2 view abdomen HISTORY: Abdominal pain 2 views the abdomen correlated to CT abdomen pelvis 05/25/2019, prior abdomen 03/20/2017 There is ostomy in the left lower quadrant on the old exam which is no longer present as on CT, surgi karla sam are present in the pelvis. L5 shows spina bifida occulta change. Retained fecal debris is present throughout the distribution of the colon. Lung bases show no evident airspace disease. There is no pathologic calcification. No bowel obstruction or pneumoperitoneum. IMPRESSION: Correlate for fecal stasis.
[2020-02-21 13:41] LABS: Basophils % (A) 0 %; Eosinophils # (A) 0.1 k/uL (0-0.7); Eosinophils % (A) 1 %; HCT 46.4 % (39.0-53.0); HGB 15.3 gm/dL (13.0-17.5); Lymphocytes # (A) 2.3 k/uL (1.0-4.8); Lymphocytes % (A) 20 %; MCH 32.3 pg (25.0-35.0); MCHC 32.9 g/dL (31.0-37.0); MCV 98.2 fL (80.0-100.0); Mean Platelet Volume 7.8; Monocytes # (A) 0.7 k/uL (0-1.0); Monocytes % (A) 6 %; Neutrophils # (A) 7.9 k/uL (1.3-7.7); Neutrophils % (A) 71 %; Platelet Count 239 k/uL (150-450); RBC 4.73 m/uL (4.30-5.90); RDW 12.6 % (11.5-15.5); WBC 11.2 k/uL (3.8-10.6)
[2020-02-21 13:52] LABS: INR 0.9 (<1.2); Partial Thromboplastin Time 26.7 sec (22.0-30.0); Prothrombin Time 9.4 sec (9.0-12.0)
[2020-02-21 13:56] LABS: ALT 23 U/L (4-49); AST 24 U/L (17-59); African American GFR (CKD) >90 (>60 ml/min/1.73 sqM); Albumin 4.1 g/dL (3.5-5.0); Alkaline Phosphatase 82 U/L (38-126); Amylase 90 U/L (30-110); Anion Gap 7 mmol/L; Blood Urea Nitrogen 12 mg/dL (9-20); Calcium 9.9 mg/dL (8.4-10.2); Carbon Dioxide 25 mmol/L (22-30); Chloride 105 mmol/L (98-107); Creatine Kinase 52 U/L (55-170); Glucose 142 mg/dL (74-99); Non-African American GFR(CKD) >90 (>60 ml/min/1.73 sqM); Potassium 4.5 mmol/L (3.5-5.1); Sodium 137 mmol/L (137-145); Total Bilirubin 0.5 mg/dL (0.2-1.3); Total Protein 6.6 g/dL (6.3-8.2)
--- NOTE | 2020-02-21 16:08 | CT ---
EXAMINATION TYPE: CT abdomen pelvis w con DATE OF EXAM: 02/21/2020 COMPARISON: 05/25/2019 HISTORY: 49-year-old male with abdominal pain, rectal bleeding. TECHNIQUE: Contiguous axial scanning of the abdomen and pelvis following administration of 100 ml Iso rajwinder 300 IV contrast. Delayed images through the kidneys and coronal/sagittal reconstructions perform ed. CT DLP: 753.2 mGycm Automated exposure control for dose reduction was used. FINDINGS: Heart normal size without pericardial effusion. Prominent dependent atelectasis in the visualized pos terior lung bases. No pleural effusion. No focal liver lesion or biliary ductal dilatation. Portal venous system is patent. Mild gallbladder wall thickening and suggestion of some layering sludge or gravel. No abnormal hydrop ic change or surrounding inflammation. Adrenal glands, kidneys, spleen, and pancreas appear within normal limits. A few small bowel loops in the left side of the abdomen are fluid filled and dilated up to 3.1 cm. Th ere is some fecalization of small bowel along a contiguous segment, refer to coronal image 40. Unable to exclude a transition point here. Mild to moderate atherosclerotic plaque within the infrarenal abdominal aorta and mild to moderate sc attered calcifications in the common iliac arteries. No mesenteric or retroperitoneal lymphadenopathy. Normal appendix. Mild stool right side of the colon. No pericolonic inflammatory change. There is a s taple line at the rectosigmoid junction from prior resection and re-anastomosis. Mild circumferential bladder wall thickening. Prostate gland mildly enlarged at 4.7 cm wide with cent ral calcifications. No abnormal fluid collection in the pelvis or pelvic lymphadenopathy. Bones: No osseous destructive process. IMPRESSION: 1. A FEW FLUID-FILLED AND MILDLY DILATED LOOPS OF SMALL BOWEL IN THE LEFT MID ABDOMEN MEASURING UP TO 3.1 CM. A CONTIGUOUS SMALL BOWEL LOOP SHOWS FECALIZATION AND POSSIBLE TRANSITION POINT HERE. EARLY D EVELOPING SMALL BOWEL OBSTRUCTION NOT EXCLUDED. 2. MILD GALLBLADDER WALL THICKENING WITH SOME LAYERING SLUDGE OR GRAVEL. NO HYDROPIC CHANGE OR SURROU NDING INFLAMMATION TO CLEARLY INDICATE ACUTE CHOLECYSTITIS. CORRELATE FOR POSSIBLE CHRONIC CHOLECYSTI TIS. HIDA SCAN IF INDICATED. 3. MILD CIRCUMFERENTIAL BLADDER WALL THICKENING COULD REPRESENT CHRONIC BLADDER WALL HYPERTROPHY OR C YSTITIS. 4. STAPLE LINE AT THE RECTOSIGMOID JUNCTION FROM PRIOR RESECTION AND REANASTOMOSIS.
[2020-02-21 16:12] LABS: Appearance,Urine Clear (Clear); Bilirubin,Urine Negative (Negative); Blood,Urine Negative (Negative); Color,Urine Yellow; Glucose,Urine (UA) Negative (Negative); Ketones,Urine Trace (Negative); Leukocyte Esterase,Urine Negative (Negative); Nitrite,Urine Negative (Negative); Protein,Urine Trace (Negative); Specific Gravity,Urine 1.027 (1.001-1.035)
[2020-02-21] MEDS ORDERED: HYDROmorphone 1 MG/ML 1 ML SYRINGE IVP STA (17:56)
[2020-02-21] MEDS ORDERED: NALOXONE 0.4 MG/ML 1 ML VIAL IV PRN (17:56)
[2020-02-21] MEDS ORDERED: HYDROmorphone 1 MG/ML 1 ML SYRINGE IVP PRN (17:56)
[2020-02-21] MEDS ORDERED: ALBUTEROL NEBULIZED 2.5 MG/3 ML INHALATION PRN (17:59)
[2020-02-21] MEDS: SODIUM CHLORIDE 0.9% 1,000 ML IV SCH ×2 (18:06→23:43)
[2020-02-22 08:57] VITALS: BP 92/59; PULSE 79; RESP 18; TEMP 98.1
[2020-02-22] MEDS ORDERED: PANTOPRAZOLE 40 MG/10 ML VIAL IV SCH (09:00)
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
[2020-02-22 13:34] LABS: Hemoglobin A1C 5.7 % (4.0-6.0)
== END 2020-02-22 15:46 | disposition left against medical advice (07) ==
LOC: EC 12:14 → 1SOBS 18:06
PROVIDERS: ADMIT Family Medicine; ATTEND Family Medicine
DX: R10.9 Unspecified abdominal pain (principal); K62.89 Other specified diseases of anus and rectum; K92.1 Melena; K21.9 Gastro-esophageal reflux disease without esophagitis; F17.210 Nicotine dependence, cigarettes, uncomplicated; K80.20 Calculus of gallbladder without cholecystitis without obstruction; J44.9 Chronic obstructive pulmonary disease, unspecified; Z87.820 Personal history of traumatic brain injury; Z87.828 Personal history of other (healed) physical injury and trauma; Z98.84 Bariatric surgery status; Z79.899 Other long term (current) drug therapy; Z91.030 Bee allergy status; Z82.49 Family history of ischemic heart disease and other diseases of the circulatory system; Z82.5 Family history of asthma and other chronic lower respiratory diseases; Z83.79 Family history of other diseases of the digestive system; Z82.61 Family history of arthritis
CPT/HCPCS: 93005; 96361 ×3; 96375 ×2; 96376; 96374; 99285; 36415; 86900; 86901; 80053; 82150; 82550; 83605; 83690; 85025; 85610; 85730; 86850; 81003; 83036; 74019; 74177; G0378 ×2; J2405; J1170; C9113; Q9967

== ENCOUNTER → 2020-03-06 | Day surgery (SDC) | payer OTHER ==
[2020-03-03 09:58] VITALS: BMI 23.8
[~2020-03-06] MED LIST changes: +ACETAMINOPHEN TAB 500 MG TAB ONE; +ACETAMINOPHEN TAB 500 MG TAB PO ONE; +BUPIVACAINE (PF) 0.25% 30 ML VIAL SQ ONE; +GLYCOPYRROLATE 0.2 MG/ML 2 ML VIAL ONE; +HEPARIN SODIUM,PORCINE 5,000 UNIT/ML 1 ML VIAL ONE; -HYDROmorphone 0.5 MG/0.5 ML SYRINGE IVP PRN; +KETOROLAC 30 MG/ML 1 ML VIAL ONE; +LACTATED RINGERS 1,000 ML IV ONE; +LACTATED RINGERS 1,000 ML IV SCH; +LIDOCAINE 1% (10MG/ML) FOR IV START INTRADERMA PRN; -LIDOCAINE 1% 20 ML VIAL (10MG/ML) FOR IV START INTRADERMA PRN; +LIDOCAINE 1% INJ 10MG/ML (20 ML MDV) ONE; +LIDOCAINE 2%-EPI 1:100,000 20 ML VIAL SQ ONE; +MIDAZOLAM 2 MG/2 ML VIAL ONE; +NEOSTIGMINE 1 MG/ML 10 ML VIAL ONE; +ONDANSETRON 4 MG/2 ML VIAL ONE; +PROPOFOL 10 MG/ML 20 ML VIAL IV ONE; +ROCURONIUM BROMIDE 10 MG/ML 5 ML VIAL IV ONE; -SCOPOLAMINE 1.5MG/72HR PATCH TRANSDERM ONE; +SUCCINYLCHOLINE CHLORIDE 100 MG/5 ML SYR IV ONE; +diphenhydrAMINE 50 MG/ML 1 ML VIAL IVP ONE; +fentaNYL (PF) 50 MCG/ML 2 ML AMP IVP ONE; +fentaNYL (PF) 50 MCG/ML 2 ML AMP ONE
[2020-03-06 12:03] LABS: Glucose,Whole Blood 93 mg/dL (75-99)
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
--- NOTE | 2020-03-06 13:33 | P.OP ---
Date of Procedure: 03/06/20 Preoperative Diagnosis: Cholecystitis Postoperative Diagnosis: Cholecystitis Procedure(s) Performed: Laparoscopic cholecystectomy Anesthesia: IVETH Surgeon: Burak Bailey Pathology: other (Gallbladder) Condition: stable Disposition: PACU Description of Procedure: The patient was placed on the operating table. The patient received a general endotracheal tube anesthesia. The patients abdomen was prepped and draped in the usual sterile fashion. Through an infraumbilical stab incision, the fascia of the anterior abdominal wall was grasped with a pair of Kochers and then the Veress needle was placed in the peritoneal cavity. Position of the Veress needle was confirmed with positive drop test. The abdomen was then insufflated. After adequate insufflation, the 10 mm trocar was placed in the peritoneal cavity. Following this the laparoscope was placed in the peritoneal cavity. The patient was placed in the head-up, right side up position and then a 5 mm trocar was placed in the right lateral and right subcostal position under direct visualization. A 8 mm trocar was placed in the epigastric position. The gallbladder was grasped in the fundus and infundibulum. Traction on the gallbladder was placed in the lateral and the cephalad positions. The triangle of Calot was visualized.. The cystic duct was bluntly dissected until the union of the cystic duct and common bile duct was seen. A critical view of safety was achieved. The cystic duct was then divided and sealed with the Harmonic scissors. A PDS Endoloop was then placed throughout the cystic duct stump. The cystic artery divided and sealed with the Harmonic scissors. The gallbladder was then removed from the liver bed using Harmonic scissors. The gallbladder was then extracted through the epigastric port site. Operative field was checked for any bleeding spots and Harmonic scissors was used to coagulate the liver bed. The abdomen was irrigated. The trocars were removed. The skin was closed using interrupted 3-0 Vicryl suture. Dermabond dressing were applied. The patient tolerated the procedure well.
[2020-03-06] MEDS: HYDROmorphone 0.5 MG/0.5 ML SYRINGE IVP PRN ×2 (13:40→13:45)
[2020-03-06 13:49] VITALS: RESP 16; TEMP 98.5
[2020-03-06 15:56] VITALS: BP 121/78; PULSE 87
== END ==
LOC: OR 11:03
PROVIDERS: ATTEND Surgery
DX: K80.10 Calculus of gallbladder with chronic cholecystitis without obstruction (principal); F17.210 Nicotine dependence, cigarettes, uncomplicated; G40.909 Epilepsy, unspecified, not intractable, without status epilepticus; J44.9 Chronic obstructive pulmonary disease, unspecified; K21.9 Gastro-esophageal reflux disease without esophagitis; Z91.030 Bee allergy status; Z98.890 Other specified postprocedural states; Z82.49 Family history of ischemic heart disease and other diseases of the circulatory system; Z82.61 Family history of arthritis; Z82.5 Family history of asthma and other chronic lower respiratory diseases; Z83.79 Family history of other diseases of the digestive system
CPT/HCPCS: 88304; 47562; J2250; J1200; J1644; J1100; J2710; J0690; J2405; J2001; J3010; J1885; J0330; J2704; J1170

== ENCOUNTER 2021-10-12 07:41 | Inpatient (IN) | payer OTHER ==
[2021-10-12] MEDS ORDERED: ASPIRIN 81 MG PO STA (07:56)
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
[2021-10-12] MEDS: NITROGLYCERIN SL TABS 0.4 MG TAB SUBLINGUAL STA ×2 (08:17→09:36)
[2021-10-12 08:20] LABS: Basophils % (A) 0 %; Eosinophils # (A) 0.1 k/uL (0-0.7); Eosinophils % (A) 2 %; HCT 44.4 % (39.0-53.0); HGB 15.1 gm/dL (13.0-17.5); Lymphocytes # (A) 1.7 k/uL (1.0-4.8); Lymphocytes % (A) 21 %; MCH 33.5 pg (25.0-35.0); MCV 98.7 fL (80.0-100.0); Mean Platelet Volume 7.7; Monocytes # (A) 0.4 k/uL (0-1.0); Monocytes % (A) 5 %; Neutrophils % (A) 71 %; Platelet Count 258 k/uL (150-450); RDW 12.1 % (11.5-15.5); WBC 8.4 k/uL (3.8-10.6)
[2021-10-12] MEDS ORDERED: SODIUM CHLORIDE 0.9% 1,000 ML IV STA (08:30)
[2021-10-12] MEDS ORDERED: KETOROLAC 15 MG/ML 1 ML VIAL IVP STA (08:30)
[2021-10-12 08:46] LABS: ALT 19 U/L (4-49); African American GFR (CKD) >90 (>60 ml/min/1.73 sqM); Albumin 3.8 g/dL (3.5-5.0); Amylase 71 U/L (30-110); Anion Gap 7 mmol/L; Blood Urea Nitrogen 8 mg/dL (9-20); Carbon Dioxide 21 mmol/L (22-30); Chloride 108 mmol/L (98-107); Glucose 121 mg/dL (74-99); Lipase 70 U/L (23-300); Non-African American GFR(CKD) >90 (>60 ml/min/1.73 sqM); Sodium 136 mmol/L (137-145); Total Bilirubin 0.9 mg/dL (0.2-1.3); Total Protein 6.9 g/dL (6.3-8.2)
[2021-10-12 08:50] LABS: AST 30 U/L (17-59); Alkaline Phosphatase 68 U/L (38-126); Magnesium 2.1 mg/dL (1.6-2.3); Potassium 4.3 mmol/L (3.5-5.1)
--- NOTE | 2021-10-12 08:53 | XR ---
EXAMINATION TYPE: XR chest 2V DATE OF EXAM: 10/12/2021 COMPARISON: X-ray dated 12/04/2017 HISTORY: Chest pain TECHNIQUE: Frontal and lateral views of the chest are obtained. FINDINGS: Suspected left lower lung zone 3 mm nodule superimposed on the cardiac shadow, likely representing a granuloma, appreciated previously. Slightly prominent pulmonary artery segment. Grossly unremarkable lungs otherwise. No sizable pleural effusion or definite pneumothorax. No gross cardiomegaly. No gross aggressive bone lesion. IMPRESSION: No definite acute pulmonary abnormality identified. Incidental findings as described above.
[2021-10-12 09:01] LABS: INR 0.9 (<1.2)
[2021-10-12 09:02] LABS: Partial Thromboplastin Time 28.4 sec (22.0-30.0); Prothrombin Time 10.4 sec (9.0-12.0)
[2021-10-12] MEDS ORDERED: NITROGLYCERIN SL TABS 0.4 MG TAB SUBLINGUAL STA ×2 (09:03→10:49)
[2021-10-12] MEDS ORDERED: HEPARIN SODIUM 1,000 UN/ML (10ML VL) IV PRN (09:04)
[2021-10-12] MEDS ORDERED: HEPARIN SODIUM 1,000 UN/ML (10ML VL) IV ONE (09:04)
[2021-10-12] MEDS ORDERED: MORPHINE SULFATE 4 MG/ML SYRINGE IV PRN (09:07)
[2021-10-12] MEDS ORDERED: NALOXONE 0.4 MG/ML 1 ML VIAL IV PRN (09:07)
[2021-10-12] MEDS ORDERED: HEPARIN SOD,PORK IN 0.45% NACL 25,000 UNIT in 0.45% NACL 1 250ML.BAG IV SCH (09:15)
[2021-10-12] MEDS: ATORVASTATIN 80 MG TAB PO SCH (11:19)
--- NOTE | 2021-10-12 11:37 | ECHOF ---
Referral Reason:elevated troponin and chest pain MEASUREMENTS -------- HEIGHT: 170.2 cm WEIGHT: 68.0 kg BP: 117/77 RVIDd: 3.3 cm (< 3.3) IVSd: 1.2 cm (0.6 - 1.1) LVIDd: 3.8 cm (3.9 - 5.3) LVPWd: 1.5 cm (0.6 - 1.1) IVSs: 1.7 cm LVIDs: 2.4 cm LVPWs: 1.9 cm LAESV Index (A-L): 16.78 ml/m Ao Diam: 3.1 cm (2.0 - 3.7) AV Cusp: 2.1 cm (1.5 - 2.6) LA Diam: 3.3 cm (2.7 - 3.8) MV EXCURSION: 24.360 mm (> 18.000) MV EF SLOPE: 152 mm/s (70 - 150) EPSS: 0.7 cm MV E Fabricio: 0.64 m/s MV DecT: 216 ms MV A Fabricio: 0.65 m/s MV E/A Ratio: 0.99 RAP: 5.00 mmHg RVSP: 22.02 mmHg FINDINGS -------- Sinus rhythm. This was a technically adequate study. The left ventricular size is normal. There is mild concentric left ventricular hypertrophy. Overa ll left ventricular systolic function is normal with, an EF between 55 - 60 %. The right ventricle is mildly enlarged. Normal LA size by volume 22+/-6 ml/m2. The right atrial size is normal. Interatrial and interventricular septum intact. The aortic valve is trileaflet and appears structurally normal. There is no evidence of aortic regu rgitation. There is no evidence of aortic stenosis. There is trace to mild mitral regurgitation. Mild tricuspid regurgitation present. There is no evidence of pulmonary hypertension. The right v entricular systolic pressure, as measured by Doppler, is 22.02mmHg. There is no pulmonic regurgitation present. The aortic root size is normal. IVC Not well visulized. Echo free space represents a pericardial fat pad. There is no pericardial effusion. CONCLUSIONS -------- 1. The left ventricular size is normal. 2. There is mild concentric left ventricular hypertrophy. 3. Overall left ventricular systolic function is normal with, an EF between 55 - 60 %. 4. The right ventricle is mildly enlarged. 5. There is trace to mild mitral regurgitation. 6. Mild tricuspid regurgitation present. BRASS PICKLER: Daisy Clinton RDCS
[2021-10-12] MEDS ORDERED: SODIUM CHLORIDE 0.9% 1,000 ML in EMPTY BAG 1 BAG IV ONE (11:57)
[2021-10-12] MEDS ORDERED: ALPRAZolam 0.25 MG TAB PO PRN (12:19)
[2021-10-12] MEDS ORDERED: ALPRAZolam 0.5 MG TAB PO PRN (12:19)
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
[2021-10-12] MEDS ORDERED: LIDOCAINE 1% INJ 10MG/ML (20 ML MDV) ONE (12:52)
[2021-10-12] MEDS ORDERED: VERAPAMIL 2.5 MG/ML 2 ML AMP ONE (12:52)
[2021-10-12] MEDS ORDERED: fentaNYL (PF) 50 MCG/ML 2 ML AMP ONE (12:53)
[2021-10-12] MEDS ORDERED: IV FLUID CONTINUATION 1,000 ML IV ONE ×2 (13:00)
[2021-10-12] MEDS: MIDAZOLAM 2 MG/2 ML VIAL IV ONE ×2 (13:18→13:21)
[2021-10-12] MEDS ORDERED: fentaNYL (PF) 50 MCG/ML 2 ML AMP IV ONE (13:18)
[2021-10-12] MEDS ORDERED: LIDOCAINE 1% INJ 10MG/ML (20 ML MDV) SQ ONE (13:18)
[2021-10-12] MEDS ORDERED: VERAPAMIL SYRINGE (5 MG/10 ML) INTRAARTER ONE (13:23)
[2021-10-12] MEDS: HEPARIN SODIUM 1,000 UN/ML (10ML VL) IV ONE ×2 (13:26→13:48)
[2021-10-12] MEDS ORDERED: PRASUGREL 10 MG TAB ONE ×2 (13:45→13:49)
[2021-10-12] MEDS ORDERED: HEPARIN SODIUM 1,000 UN/ML (10ML VL) ONE (13:47)
[2021-10-12] MEDS ORDERED: PRASUGREL 10 MG TAB PO ONE (13:50)
[2021-10-12] MEDS ORDERED: NITROGLYCERIN 1000MCG/10ML SYRINGE INTRACORON ONE (13:55)
[2021-10-12] MEDS ORDERED: IOPAMIDOL-370 125ML BTL INJ ONE (14:03)
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
[2021-10-12] MEDS ORDERED: ZOLPIDEM 5 MG TAB PO PRN (14:15)
[2021-10-12] MEDS ORDERED: RX INFO: IV CONTRAST WAS GIVEN 1 EACH MISC MISCELLANE PRN (14:15)
[2021-10-12] MEDS ORDERED: ATROPINE SULFATE 0.1 MG/ML 10ML SYRINGE IV PRN (14:15)
[2021-10-12] MEDS ORDERED: NITROGLYCERIN SL TABS 0.4 MG TAB SUBLINGUAL PRN (14:15)
[2021-10-12] MEDS ORDERED: SODIUM CHLORIDE 0.9% 1,000 ML in EMPTY BAG 1 BAG IV SCH (14:15)
[2021-10-12] MEDS ORDERED: MAG HYDROX/AL HYDROX/SIMETH 30 ML CUP PO PRN (14:15)
--- NOTE | 2021-10-12 15:05 | P.CARDCATH ---
Date of Procedure: 10/12/21 Description of Procedure: PERCUTANEOUS TRANSLUMINAL CORONARY ANGIOPLASTY CLINICAL INFORMATION: The patient is a 51-year-old male who presented with symptoms of chest discomfort and mild troponin elevation. He underwent cardiac catheterization by Dr. Nolan and was found to have a critical stenosis in the s econd diagonal branch, recommendations were made regarding angioplasty and stenting. The procedure as well as the risks and the complications were discussed with the patient was in full understanding and agreement. PROCEDURE: A 6 Danish EBU 3.75 guiding catheter was introduced into the system. After cannulating the left main, a 0.014 balanced medium J-wire was advanced and positioned in the distal LAD then another 0.014 that is medium J-wire was advanced across the lesion and positioned distally. Following that a 2.25 x 12 mm Treck balloon was advanced and one inflation at 8 meagan was done. Following that a 2.25 x 18 millimeter signs alicia point stent was deployed. It was dilated at 16. After the last inflation, after appropriate wait, the balloon and the guidewire were withdrawn back into the guiding catheter. Images were obtained and repeated. Those images reveal stable successful stenting. At that point, the guiding catheter, the balloon, and guidewire were removed. The sheath was removed. Hemostasis was obtained with deployment of a TR band. There were no immediate complications. The patient was returned to the room in stable condition. Of note, the patient received 2000 units of heparin as well as loading dose of Effient. He had chest discomfort and EKG changes that resolved at the end of the procedure. His ACT was followed. RESULTS: Successful stenting of the second diagonal with reduction of stenosis from 99% to 0 %. RECOMMENDATIONS: The findings and recommendations were discussed with the patient. He will continue on dual antiplatelets treatment for one year. The importance of coronary risk modification was discussed with him in full detail. Duration of sedation 20 minutes.
--- NOTE | 2021-10-12 15:12 | CC ---
CARDIAC CATHETERIZATION REPORT INDICATION: Acute non ST-segment elevation OK. PROCEDURE NOTE: After obtaining informed consent, left heart catheterization and coronary angiogram were performed via right radial artery. 3 and half Reyna catheters were used to engage the right and left coronary artery and a pigtail was used to get hemodynamics. The patient tolerated the procedure well without any obvious immediate complications. The patient received moderate conscious sedation. Total sedation time was 17 minute. Using a micropuncture needle, right radial artery access was obtained by standard protocol. Under fluoroscopic guidance, wires and catheters were floated into the ascending aorta. The patient received 5 mg of verapamil and 3000 units of heparin as per protocol. Tolerated the procedure well without any obvious immediate complications. FINDINGS: HEMODYNAMICS: Left ventricular end-diastolic pressure is 8-12 mm. There is no significant gradient across the aortic valve. LEFT VENTRICULOGRAM: Not performed. ANGIOGRAPHIC DATA: LEFT MAIN CORONARY ARTERY: Left main coronary artery is a normal-sized vessel and is free of stenosis. Divides into left anterior descending coronary artery and circumflex coronary artery. LEFT ANTERIOR DESCENDING CORONARY ARTERY: LAD gives off a fairly large diagonal branch that has a long segment of the 90 is 95% stenosis. CIRCUMFLEX CORONARY ARTERY: Circumflex coronary artery is a nondominant vessel and is free of significant disease. RIGHT CORONARY ARTERY: Right coronary artery is a large dominant vessel, shows mild atherosclerotic plaque in its mid portion. CONCLUSIONS: Severe long segment of narrowing involving the diagonal branch. PLAN: The patient will undergo angioplasty with Dr. Horvath. MMLOKESHL / BRIJESHN: [id number] /
[2021-10-12 18:43] LABS: Chol/HDL Ratio 6.63 Ratio; LDL Cholesterol,Calculated 165.4 mg/dL (0.0-131.0)
[2021-10-12] MEDS ORDERED: ACETAMINOPHEN TAB 325 MG TAB PO PRN (19:31)
[2021-10-12] MEDS: METOPROLOL TARTRATE 25 MG TAB PO SCH (19:59)
[2021-10-12] MEDS: NITROGLYCERIN SL TABS 0.4 MG TAB SUBLINGUAL PRN ×2 (21:21→21:28)
[2021-10-13] MEDS ORDERED: HEPARIN SODIUM,PORCINE 2,500 UNIT in SODIUM CHLORIDE 0.9% 250 ML IRRIGATION PRN (07:00)
[2021-10-13] MEDS ORDERED: HEPARIN SODIUM,PORCINE 10,000 UNIT in SODIUM CHLORIDE 0.9% 1,000 ML IRRIGATION PRN (07:00)
[2021-10-13 07:42] LABS: Basophils % (A) 0 %; Eosinophils # (A) 0.1 k/uL (0-0.7); Eosinophils % (A) 1 %; HCT 43.9 % (39.0-53.0); HGB 14.9 gm/dL (13.0-17.5); Lymphocytes # (A) 1.9 k/uL (1.0-4.8); Lymphocytes % (A) 25 %; MCH 33.9 pg (25.0-35.0); MCHC 33.9 g/dL (31.0-37.0); MCV 100.1 fL (80.0-100.0); Mean Platelet Volume 7.7; Monocytes # (A) 0.5 k/uL (0-1.0); Monocytes % (A) 7 %; Neutrophils # (A) 4.9 k/uL (1.3-7.7); Neutrophils % (A) 65 %; Platelet Count 247 k/uL (150-450); RBC 4.39 m/uL (4.30-5.90); RDW 12.2 % (11.5-15.5); WBC 7.5 k/uL (3.8-10.6)
[2021-10-13 07:47] LABS: Prothrombin Time 10.6 sec (9.0-12.0)
[2021-10-13 07:54] LABS: ALT 17 U/L (4-49); AST 23 U/L (17-59); African American GFR (CKD) >90 (>60 ml/min/1.73 sqM); Albumin 3.5 g/dL (3.5-5.0); Alkaline Phosphatase 72 U/L (38-126); Anion Gap 3 mmol/L; Blood Urea Nitrogen 7 mg/dL (9-20); Calcium 8.9 mg/dL (8.4-10.2); Carbon Dioxide 24 mmol/L (22-30); Chloride 110 mmol/L (98-107); Glucose 94 mg/dL (74-99); Non-African American GFR(CKD) >90 (>60 ml/min/1.73 sqM); Potassium 4.1 mmol/L (3.5-5.1); Sodium 137 mmol/L (137-145); Total Bilirubin 0.6 mg/dL (0.2-1.3); Total Protein 6.3 g/dL (6.3-8.2)
[2021-10-13] MEDS: ATORVASTATIN 80 MG TAB PO SCH (08:50)
[2021-10-13] MEDS: METOPROLOL TARTRATE 25 MG TAB PO SCH (08:50)
[2021-10-13] MEDS ORDERED: ASPIRIN 81 MG PO SCH ×2 (09:00)
[2021-10-13] MEDS ORDERED: PRASUGREL 10 MG TAB PO SCH (09:00)
[2021-10-13 09:41] VITALS: PULSE 61; RESP 18
[2021-10-13 10:10] VITALS: BMI 23.5
[2021-10-13] MEDS ORDERED: ISOSORBIDE MONONITRATE ER 30 MG TAB.ER.24H PO SCH (11:00)
--- NOTE | 2021-10-13 11:03 | P.PN ---
Subjective 51-year-old gentleman is admitted to hospital with acute non-ST segment elevation IN underwent cardiac catheterization and angioplasty of the major d iagonal branch. Last night he had an episode of chest discomfort that resolved DrHeath intravenous morphine. He has not had any further episodes of chest discomfort is ambulating without any issues and wishes to go home. On exam is comfortable at rest vital signs are stable there is a jugular venous distention carotid upstroke is normal there is no bruit chest exam reveals good air entry bilaterally Right radial artery access site appears normal. His EKG last night did not reveal any acute ischemic changes. Medications include aspirin and Lipitor 80 mg daily Lopressor 25 twice a day sublingual nitroglycerin Imdur 30 mg daily Effient 10 mg daily Assessment and plan: Acute non-ST segment elevation IN status post cath and angioplasty of diagonal Patient is doing well he will be discharged home and dual antiplatelet therapy Normal LV function Follow-up in 2 weeks Objective - Vital Signs Vital signs: Vital Signs Temp 98.0 F 10/13/21 07:26 Pulse 61 10/13/21 07:26 Resp 18 10/13/21 07:26 BP 124/76 10/13/21 07:26 Pulse Ox 97 10/13/21 07:26 Intake & Output 10/12/21 10/13/21 10/13/21 18:59 06:59 18:59 Intake Total 130 1480 Balance 130 1480 Weight 68.039 kg 68.1 kg 68.1 kg Intake: IV 130 Intake, IV Titration 1000 Amount Sodium Chloride 0.9% 1, 1000 000 ml In Empty Bag 1 bag @ 1 ML/KG/HR 68.039 mls/ hr IV .[id number] [id number] Rx#: [id number] Oral 0 480 Other: # Voids 4 # Bowel Movements 0 - Labs CBC & Chem 7: 10/13/21 07:29 10/13/21 07:29 Labs: Abnormal Lab Results - Last 24 Hours (Table) 10/12/21 10/12/21 10/12/21 Range/Units 08:00 12:01 15:40 MCV (80.0-100.0) fL APTT 86.2 H (22.0-30.0) sec Chloride (98-107) mmol/L BUN (9-20) mg/dL Troponin I 0.083 H* (0.000-0.034) ng/mL Cholesterol 228.00 H (0.00-200.00) mg/dL LDL Cholesterol, Calc 165.4 H (0.0-131.0) mg/dL HDL Cholesterol 34.40 L (40.00-60.00) mg/dL 10/12/21 10/13/21 10/13/21 Range/Units 15:40 07:29 07:29 MCV 100.1 H (80.0-100.0) fL APTT (22.0-30.0) sec Chloride 110 H (98-107) mmol/L BUN 7 L (9-20) mg/dL Troponin I 0.064 H* (0.000-0.034) ng/mL Cholesterol (0.00-200.00) mg/dL LDL Cholesterol, Calc (0.0-131.0) mg/dL HDL Cholesterol (40.00-60.00) mg/dL
[2021-10-13 11:50] VITALS: BP 108/61; TEMP 97.8
--- NOTE | 2021-10-13 12:41 | P.DS ---
Providers Date of admission: 10/12/21 09:09 Expected date of discharge: 10/13/21 Attending physician: Dl Brown MD Consults: 10/12/21 09:07 Consult Physician Routine Consulting Provider: Olivia Hirsch Consult Reason/Comments: NSTEMI Do you want consulting provider notified?: Yes 10/12/21 14:15 Consult Physician Routine Consulting Provider: Olivia Hirsch Consult Reason/Comments: Post Interventional patient Do you want consulting provider notified?: Already Contacted Primary care physician: Stated None Hospital Course: 51-year-old male who presents emergency Department complaining of acute onset of chest pain this morning. He was awoken this am with the pain. Pain is sharp, has mild radiation to the left arm. Denies any fevers, chills, cough. His no history of cardiac disease, however it does run in the family with multiple family members having heart attacks at young ages. Patient is a smoker. History of COPD. Also endorses chronic epigastric pain. Denies any fevers, chills, nausea, vomiting, diarrhea. Denies orthopnea. Denies PND. Denies lower extremity edema. Evaluation in the ER revealed normal VS. Trops mildly elevated at 0.074. Rest of labs ok. EKG and CXR ok. He was started on heparin gtt and then admitted for further evaluation and management. Patient was evaluated by cardio, was taken to the [facility] which found a critical stenosis in the second diagonal branch, for which patient had angioplasty and stenting. After the procedure patient was started on dual antiplatelet therapy. He was also started on high intensity statin, Imdur as well as metoprolol. After that he was chest pain-free. Labs showed LDL 165, total cholesterol 228, HDL 34, triglyceride 141. Echocardiogram showed normal ejection fraction with mild concentric LVH. Today he was cleared by cardiology for discharge. He will be discharged home in a stable condition. Time for discharge 36 min Patient Condition at Discharge: Serious Plan - Discharge Summary Discharge Rx Participant: No New Discharge Prescriptions: New Metoprolol Tartrate [Lopressor] 25 mg PO BID 30 Days #60 tab Nitroglycerin Sl Tabs [Nitrostat] 0.4 mg SUBLINGUAL Q5M PRN 30 Days #90 tab PRN Reason: Chest Pain Aspirin 81 mg PO DAILY 30 Days #90 Prasugrel [Effient] 10 mg PO DAILY 30 Days #30 tab Isosorbide Mononitrate ER [Imdur] 30 mg PO DAILY 30 Days #30 tablet Atorvastatin [Lipitor] 80 mg PO DAILY 30 Days #30 tab Discharge Medication List Aspirin 81 mg PO DAILY 30 Days #90 10/13/21 [Rx] Atorvastatin [Lipitor] 80 mg PO DAILY 30 Days #30 tab 10/13/21 [Rx] Isosorbide Mononitrate ER [Imdur] 30 mg PO DAILY 30 Days #30 tablet 10/13/21 [Rx] Metoprolol Tartrate [Lopressor] 25 mg PO BID 30 Days #60 tab 10/13/21 [Rx] Nitroglycerin Sl Tabs [Nitrostat] 0.4 mg SUBLINGUAL Q5M PRN 30 Days #90 tab 10/13/21 [Rx] Prasugrel [Effient] 10 mg PO DAILY 30 Days #30 tab 10/13/21 [Rx] Follow up Appointment(s)/Referral(s): None,Stated [Primary Care Provider] - 1-2 days Marin Nolan MD [STAFF PHYSICIAN] - 1 Week (Office closed today. Call Friday to schedule follow up appoitment. ) Patient Instructions/Handouts: Heart Attack (IP), Heart Healthy Diet (GEN)
== END 2021-10-13 14:35 | disposition home or self-care (01) | DRG 247 ==
LOC: EC 07:41 → 3SCARD 09:09
PROVIDERS: ADMIT Internal Medicine; ATTEND Internal Medicine
PROC: 4A023N7 Measurement of Cardiac Sampling and Pressure, Left Heart, Percutaneous Approach (ICD-10-PCS; 2021-10-12)
PROC: 027034Z Dilation of Coronary Artery, One Artery with Drug-eluting Intraluminal Device, Percutaneous Approach (ICD-10-PCS; principal; 2021-10-12 15:30)
PROC: B2111ZZ Fluoroscopy of Multiple Coronary Arteries using Low Osmolar Contrast (ICD-10-PCS; 2021-10-12 15:30)
DX: I21.4 Non-ST elevation (NSTEMI) myocardial infarction (principal); F17.210 Nicotine dependence, cigarettes, uncomplicated; I25.119 Atherosclerotic heart disease of native coronary artery with unspecified angina pectoris; J44.9 Chronic obstructive pulmonary disease, unspecified; I08.1 Rheumatic disorders of both mitral and tricuspid valves; G40.909 Epilepsy, unspecified, not intractable, without status epilepticus; G89.29 Other chronic pain; K21.9 Gastro-esophageal reflux disease without esophagitis; Z79.02 Long term (current) use of antithrombotics/antiplatelets; Z79.899 Other long term (current) drug therapy; Z82.49 Family history of ischemic heart disease and other diseases of the circulatory system; Z82.5 Family history of asthma and other chronic lower respiratory diseases; Z93.3 Colostomy status; I25.2 Old myocardial infarction; Z91.030 Bee allergy status; Z87.19 Personal history of other diseases of the digestive system
CPT/HCPCS: 36415; 71046; 80053; 80061; 82150; 83036; 83690; 83735; 84484; 85025; 85379; 85610; 85730; 93005; 93306; 93458; 96365; 96366; 96375; 99291

== ENCOUNTER 2021-10-15 16:19 | Observation (INO) | payer OTHER ==
[2021-10-15] MEDS ORDERED: ASPIRIN 325 MG TAB PO STA (20:14)
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
--- NOTE | 2021-10-15 21:01 | XR ---
EXAMINATION TYPE: XR chest 2V DATE OF EXAM: 10/15/2021 COMPARISON: 10/12/2021 HISTORY: Chest pain TECHNIQUE: FINDINGS: Heart and mediastinum are normal. Lungs are clear. Diaphragm is normal. Bony thorax appears normal. IMPRESSION: Normal chest. No change.
[2021-10-15 21:11] LABS: Basophils % (A) 0 %; Eosinophils # (A) 0.1 k/uL (0-0.7); Eosinophils % (A) 1 %; HCT 44.9 % (39.0-53.0); Lymphocytes # (A) 2.9 k/uL (1.0-4.8); Lymphocytes % (A) 28 %; MCH 33.3 pg (25.0-35.0); MCHC 33.3 g/dL (31.0-37.0); Mean Platelet Volume 7.5; Monocytes # (A) 0.4 k/uL (0-1.0); Monocytes % (A) 4 %; Neutrophils # (A) 6.7 k/uL (1.3-7.7); Neutrophils % (A) 64 %; Platelet Count 284 k/uL (150-450); RBC 4.49 m/uL (4.30-5.90); RDW 12.5 % (11.5-15.5); WBC 10.5 k/uL (3.8-10.6)
[2021-10-15 21:31] LABS: INR 0.9 (<1.2); Prothrombin Time 10.2 sec (9.0-12.0)
[2021-10-15 21:32] LABS: ALT 22 U/L (4-49); AST 28 U/L (17-59); African American GFR (CKD) >90 (>60 ml/min/1.73 sqM); Albumin 3.9 g/dL (3.5-5.0); Alkaline Phosphatase 70 U/L (38-126); Amylase 75 U/L (30-110); Anion Gap 4 mmol/L; Blood Urea Nitrogen 16 mg/dL (9-20); Calcium 9.2 mg/dL (8.4-10.2); Carbon Dioxide 27 mmol/L (22-30); Chloride 107 mmol/L (98-107); Glucose 96 mg/dL (74-99); Lipase 104 U/L (23-300); Non-African American GFR(CKD) >90 (>60 ml/min/1.73 sqM); Potassium 3.9 mmol/L (3.5-5.1); Sodium 138 mmol/L (137-145); Total Bilirubin 0.5 mg/dL (0.2-1.3); Total Protein 6.6 g/dL (6.3-8.2)
--- NOTE | 2021-10-15 22:11 | CT ---
EXAMINATION TYPE: CT brain wo con DATE OF EXAM: 10/15/2021 COMPARISON: 02/13/2016 HISTORY: Acute headache, lump at base of occiput-marked by BB CT DLP: 1290.4 mGycm Automated exposure control for dose reduction was used. Ventricles have normal size. There is no mass effect or midline shift. There is no sign of intracrani al hemorrhage. Calvarium is intact. There is no evidence of cerebral edema. IMPRESSION: Negative unenhanced head CT scan. No change.
[2021-10-15] MEDS ORDERED: NITROGLYCERIN SL TABS 0.4 MG TAB SUBLINGUAL STA (22:47)
[2021-10-15] MEDS ORDERED: ALPRAZolam 0.25 MG TAB PO PRN (23:10)
[2021-10-15] MEDS ORDERED: NALOXONE 0.4 MG/ML 1 ML VIAL IV PRN (23:10)
[2021-10-15] MEDS ORDERED: HYDROcodone/APAP 5-325MG 1 EACH TAB PO PRN (23:10)
[2021-10-15] MEDS ORDERED: ONDANSETRON 4 MG/2 ML VIAL IVP PRN (23:10)
[2021-10-15] MEDS ORDERED: oxyCODONE-APAP 5-325MG 1 EACH TAB PO PRN (23:10)
[2021-10-15] MEDS ORDERED: NITROGLYCERIN SL TABS 0.4 MG TAB SUBLINGUAL PRN (23:59)
[2021-10-16] MEDS: ACETAMINOPHEN TAB 325 MG TAB PO PRN ×2 (00:06→20:53)
[2021-10-16] MEDS: METOPROLOL TARTRATE 25 MG TAB PO SCH ×3 (00:12→20:47)
[2021-10-16] MEDS: ASPIRIN 81 MG PO SCH (08:34)
[2021-10-16] MEDS: ISOSORBIDE MONONITRATE ER 30 MG TAB.ER.24H PO SCH (08:34)
[2021-10-16] MEDS: FAMOTIDINE 20 MG TAB PO SCH ×2 (08:34→20:47)
[2021-10-16] MEDS: ATORVASTATIN 80 MG TAB PO SCH (08:34)
[2021-10-16] MEDS: PRASUGREL 10 MG TAB PO SCH (08:34)
[2021-10-16] MEDS ORDERED: ACETAMINOPHEN IV (For NPO) 1,000 MG in EMPTY BAG 1 BAG IVPB STA (10:04)
[2021-10-16] MEDS ORDERED: MAGNESIUM SULFATE-D5W PMX 1 GM in DEXTROSE/WATER 1 100ML.BAG IVPB ONE (10:04)
[2021-10-16] MEDS: COLCHICINE 0.6 MG EACH PO SCH ×2 (11:03→20:47)
--- NOTE | 2021-10-16 11:26 | CT ---
EXAMINATION TYPE: CODE STROKE: CTA head neck DATE OF EXAM: 10/16/2021 HISTORY: Ongoing entire headache, originating from posterior neck. COMPARISON: NONE CT DLP: 412.6 mGycm. Automated Exposure Control for Dose Reduction was Utilized. TECHNIQUE: CTA scan of the head and neck are performed with IV Contrast, patient injected with 65 mL of Isovue 370, axial images are obtained, coronal and sagittal reformatted images are reviewed. 3D r econstructed images are created on an independent workstation and reviewed. FINDINGS: Carotid/Vascular Structures: Normal three-vessel origin from aortic arch . No significant stenosis. N ormal origin right common carotid artery from right brachiocephalic artery. Minimal peripheral calcif ied plaque posterior right internal carotid artery shortly after carotid bulb. No significant plaque or stenosis in the common or internal carotid arteries bilaterally. Patent external carotid arteries without plaque or stenosis. Dominant left vertebral artery. Vertebral arteries are patent to basilar junction. No significant foc al stenosis or aneurysm in the posterior circulation. Hypoplastic bilateral posterior communicating a rteries are present. Images of the anterior circulation show small caliber right A1 segment. There is a patent anterior communicating artery seen. No significant focal stenosis or aneurysm in the anteri or circulation. Other: Mild to moderate emphysematous change in the visualized upper lungs. Slight underlying scoliotic curvature or positioning. IMPRESSION: No significant abnormality is seen. NASCET criteria was used in interpretation of this exam?
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
[2021-10-17] MEDS: PRASUGREL 10 MG TAB PO SCH (08:54)
[2021-10-17] MEDS: METOPROLOL TARTRATE 25 MG TAB PO SCH (08:54)
[2021-10-17] MEDS: ASPIRIN 81 MG PO SCH (08:54)
[2021-10-17] MEDS: ISOSORBIDE MONONITRATE ER 30 MG TAB.ER.24H PO SCH (08:54)
[2021-10-17] MEDS: FAMOTIDINE 20 MG TAB PO SCH (08:54)
[2021-10-17] MEDS: ATORVASTATIN 80 MG TAB PO SCH (08:54)
[2021-10-17] MEDS: COLCHICINE 0.6 MG EACH PO SCH (08:55)
[2021-10-17 11:12] VITALS: RESP 12
[2021-10-17 12:04] VITALS: BP 110/66; PULSE 61; TEMP 97.6
--- NOTE | 2021-10-17 12:56 | P.PN ---
Subjective HISTORY OF PRESENTING ILLNESS This is a pleasant 51-year-old male past medical history significant for coronary artery disease s/p PCI 2nd diagonal branch recently on 10/12/2021, chronic nicotine dependence (smoking 1PPD since 9 years old), COPD, family history of coronary artery disease. Patient to follow up with Dr. Nolan. Presents with occipital headache/migraine, back neck pain, and chest discomfort. Chest discomfort has been in the center of his chest on and off since his cath and stent placement. It is aggravated by leaning back in chair/bed and alleviated by leaning forward. Describes it as burning. Non-radiating, non- exertional. No shortness of breath or associated symptoms. He states he is compliant with medications Different than when he presented to his NSTEMI last week, at that time he had left sided sharp and stabbing pain with radiation to his left arm and jaw, left arm and hand was tingling and numb. It was aggravated by activity. Alleviated by resting. He had associated shortness of breath. This presentation is different than prior. DIAGNOSTICS EKG reveals sinus rhythm, heart rate 69, no acute ST-T wave abnormalities. Telemetry tracings indicate sinus mechanism Echocardiogram 10/12/2021 revealed EF 5560%, trace to mild mitral regurgitation, mild tricuspid regurgitation Chest xray no acute cardiopulmonary process. Brain CT with no acute intracranial abnormality. Cardiac catheterization revealed left main is free of stenosis, LAD with large diagonal branch long segment of 9095 percent stenosis, circumflex free of significant disease, RCA mild disease. Patient underwent PCI to the second diagonal branch. Meds aspirin 80 mg daily, atorvastatin 80 mg daily, Imdur 30 mg daily, metoprolol titrate 25 mg twice a day, Effient 10 mg daily 10/17/2021 Patient seen and examined at bedside, no acute distress. He continues to have a headache but has improved. No further chest pain. No shortness of breath. He is hemodynamically stable. Patient was started on colchicine yesterday with improvement. PHYSICAL EXAMINATION Vitals reviewed CONSTITUTIONAL: No apparent distress. HEENT: Neck Supple. No JVD. CHEST EXAMINATION: Lungs are clear to auscultation. No chest wall tenderness is noted on palpation or with deep breathing. HEART EXAMINATION: Regular rate and rhythm. S1, S2 heard. No murmurs, gallops or rub. ABDOMEN: Soft, nontender. Positive bowel sounds. EXTREMITIES: 2+ peripheral pulses, no lower extremity edema and no calf tenderness. NEUROLOGIC EXAMINATION: Patient is awake, alert and oriented x3. ASSESSMENT Chest discomfort, improved by leaning forward, possible pericarditis Headache Recent NSTEMI, coronary artery disease status post PCI second diagonal branch on 10/12/2021 Chronic nicotine dependence COPD Family history of coronary artery disease PLAN Continue colchicine Continue dual antiplatelet with aspirin and Effient Continue home medications statin, beta elisha, Imdur Follow up with Dr. Nolan in 1 week. From a cardiology perspective, patient is stable for discharge. Nurse practitioner note has been reviewed by physician. Signing provider agrees with the documented findings, assessment, and plan of care. Objective - Vital Signs Vital signs: Vital Signs Temp 97.6 F 10/17/21 12:00 Pulse 61 10/17/21 12:00 Resp 12 10/17/21 12:00 BP 110/66 10/17/21 12:00 Pulse Ox 96 10/17/21 12:00 Intake & Output 10/16/21 10/17/21 10/17/21 18:59 06:59 18:59 Intake Total 320 960 118 Balance 320 960 118 Weight 68.039 kg Intake: Intake, IV Titration 200 Amount ACETAMINOPHEN IV (For NPO 100 ) 1,000 mg In Empty Bag 1 bag @ 400 mls/hr IVPB ONCE STA Rx#:[id number] Magnesium Sulfate-D5w Pmx 100 1 gm In Dextrose/Water 1 100ml.bag @ 100 mls/hr IVPB ONCE ONE Rx#: [id number] Oral 120 960 118 Other: # Voids 2 2 - Labs CBC & Chem 7: 10/15/21 20:46 10/15/21 20:46
--- NOTE | 2021-10-19 14:32 | P.DS ---
Providers Date of admission: 10/15/21 22:34 Expected date of discharge: 10/17/21 Attending physician: Allen Murray MD Consults: 10/15/21 23:12 Consult Physician Urgent Consulting Provider: Byron Hall Consult Reason/Comments: Elevated troponin, recent stent placement Do you want consulting provider notified?: Yes Primary care physician: Mercedes Nielson Hospital Course: Final Diagnoses: Chest pain, status post recent NSTEMI , PCI, possible pericarditis with colchicine initiated as per cardiology Migraine headache, resolved Ongoing nicotine dependence COPD Hospital course:Clay Buck is a 51 yo M with PMH of CAD s/p stenting recently on 10/12/2021, COPD, tobacco abuse family history of coronary artery disease who presented to the ED complaining of occipital headache, back/neck pain, and chest discomfort. He complains of a headache behind both eyes that has been present and no change in severity since his cath. Chest discomfort has been in the center of his chest on and off since his cath and stent placement. It is aggravated by leaning back in chair/bed and alleviated by leaning forward. Describes it as burning. Non-radiating, non-exertional. No shortness of breath or associated symptoms. He states he is compliant with medications. On presentation vitals stable, EKG NSR, CXR clear, CT brain no acute process. Labs remarkable only for trop 0.072. Evaluated by cardiology, significant clinical improvement on colchicine. Denies diarrhea. Denies chest pain, palpitations or shortness of breath. Denies headache or blurred vision. Continues on dual antiplatelet with both aspirin and Effient, statin, beta elisha, Imdur. Cleared by cardiology for discharge. Patient will be discharged home today in a stable condition with guarded prognosis. The impression and plan of care has been dictated as directed. : I performed a history and examination of this patient, discussed the same with the dictator. I agree with the dictator's note ,documented as a scribe. Any additional findings or plans will be noted. Patient Condition at Discharge: Stable Plan - Discharge Summary Discharge Rx Participant: No New Discharge Prescriptions: New Colchicine [Colcrys] 0.6 mg PO BID 30 Days #60 each Continue Metoprolol Tartrate [Lopressor] 25 mg PO BID 30 Days #60 tab Nitroglycerin Sl Tabs [Nitrostat] 0.4 mg SUBLINGUAL Q5M PRN 30 Days #90 tab PRN Reason: Chest Pain Prasugrel [Effient] 10 mg PO DAILY Aspirin 81 mg PO DAILY 30 Days #90 Isosorbide Mononitrate ER [Imdur] 30 mg PO DAILY 30 Days #30 tablet Atorvastatin [Lipitor] 80 mg PO DAILY 30 Days #30 tab Discharge Medication List Aspirin 81 mg PO DAILY 30 Days #90 10/13/21 [Rx] Atorvastatin [Lipitor] 80 mg PO DAILY 30 Days #30 tab 10/13/21 [Rx] Isosorbide Mononitrate ER [Imdur] 30 mg PO DAILY 30 Days #30 tablet 10/13/21 [Rx ] Metoprolol Tartrate [Lopressor] 25 mg PO BID 30 Days #60 tab 10/13/21 [Rx] Nitroglycerin Sl Tabs [Nitrostat] 0.4 mg SUBLINGUAL Q5M PRN 30 Days #90 tab 10/13/21 [Rx] Prasugrel [Effient] 10 mg PO DAILY 10/15/21 [History] Colchicine [Colcrys] 0.6 mg PO BID 30 Days #60 each 10/17/21 [Rx] Follow up Appointment(s)/Referral(s): Allen Murray MD [STAFF PHYSICIAN] - 10/24/21 4:45 pm ([facility]) Marin Nolan MD [STAFF PHYSICIAN] - 1 Week Patient Instructions/Handouts: Acute Pericarditis (DC) Discharge Disposition: HOME SELF-CARE
== END 2021-10-17 12:31 | disposition home or self-care (01) ==
LOC: EC 16:19 → 3SCARD 22:34
PROVIDERS: ADMIT Family Medicine; ATTEND Family Medicine
DX: R07.89 Other chest pain (principal); G43.909 Migraine, unspecified, not intractable, without status migrainosus; F17.200 Nicotine dependence, unspecified, uncomplicated; J44.9 Chronic obstructive pulmonary disease, unspecified; R77.8 Other specified abnormalities of plasma proteins; I25.2 Old myocardial infarction; I25.10 Atherosclerotic heart disease of native coronary artery without angina pectoris; M54.9 Dorsalgia, unspecified; M54.2 Cervicalgia; G40.909 Epilepsy, unspecified, not intractable, without status epilepticus; K21.9 Gastro-esophageal reflux disease without esophagitis; Z95.5 Presence of coronary angioplasty implant and graft; Z79.02 Long term (current) use of antithrombotics/antiplatelets; Z79.899 Other long term (current) drug therapy; Z79.82 Long term (current) use of aspirin; Z91.030 Bee allergy status; Z82.49 Family history of ischemic heart disease and other diseases of the circulatory system; Z82.5 Family history of asthma and other chronic lower respiratory diseases; Z83.6 Family history of other diseases of the respiratory system; Z82.61 Family history of arthritis; Z83.79 Family history of other diseases of the digestive system
CPT/HCPCS: 96365; 99285; 36415; 93005; 83880; 80053; 82150; 83690; 83735; 84484 ×2; 85025; 85610; 85730; 71046; 70496; 70450; 70498; G0378 ×3; J3475; J0131; Q9967

== ENCOUNTER 2021-10-21 06:11 | Inpatient (IN) | payer OTHER ==
[2021-10-21] MEDS ORDERED: ASPIRIN 81 MG PO STA (06:26)
--- NOTE | 2021-10-21 06:47 | XR ---
EXAMINATION TYPE: XR chest 2V DATE OF EXAM: 10/21/2021 COMPARISON: Chest x-ray 6 days ago. HISTORY: Chest pain. TECHNIQUE: Frontal and lateral views of the chest are obtained. FINDINGS: There is no Suspicious focal air space opacity, pleural effusion, or pneumothorax seen. The cardiac silhouette size remain within normal limits. The osseous structures are intact. Cholecy stectomy clips noted on lateral view. IMPRESSION: No acute process.
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
[2021-10-21 07:56] LABS: Basophils # (A) 0.1 k/uL (0-0.2); Basophils % (A) 1 %; Eosinophils # (A) 0.2 k/uL (0-0.7); Eosinophils % (A) 1 %; HCT 48.8 % (39.0-53.0); HGB 16.3 gm/dL (13.0-17.5); Lymphocytes # (A) 2.5 k/uL (1.0-4.8); Lymphocytes % (A) 18 %; MCH 32.9 pg (25.0-35.0); MCHC 33.4 g/dL (31.0-37.0); MCV 98.2 fL (80.0-100.0); Mean Platelet Volume 7.3; Monocytes # (A) 0.7 k/uL (0-1.0); Monocytes % (A) 5 %; Neutrophils % (A) 74 %; Platelet Count 303 k/uL (150-450); RBC 4.97 m/uL (4.30-5.90); RDW 12.1 % (11.5-15.5); WBC 13.7 k/uL (3.8-10.6)
[2021-10-21 08:07] LABS: INR 0.9 (<1.2); Prothrombin Time 10.1 sec (9.0-12.0)
[2021-10-21 08:16] LABS: ALT 25 U/L (4-49); AST 27 U/L (17-59); African American GFR (CKD) >90 (>60 ml/min/1.73 sqM); Albumin 4.1 g/dL (3.5-5.0); Alkaline Phosphatase 83 U/L (38-126); Anion Gap 6 mmol/L; Blood Urea Nitrogen 12 mg/dL (9-20); Calcium 9.5 mg/dL (8.4-10.2); Carbon Dioxide 28 mmol/L (22-30); Chloride 105 mmol/L (98-107); Glucose 85 mg/dL (74-99); Lipase 164 U/L (23-300); Non-African American GFR(CKD) >90 (>60 ml/min/1.73 sqM); Sodium 139 mmol/L (137-145); Total Bilirubin 0.6 mg/dL (0.2-1.3); Total Protein 7.2 g/dL (6.3-8.2)
[2021-10-21] MEDS ORDERED: AMPICILLIN-SULBACTAM 3 GM in SODIUM CHLORIDE 0.9% 100 ML IVPB STA (09:20)
[2021-10-21] MEDS ORDERED: NITROGLYCERIN SL TABS 0.4 MG TAB SUBLINGUAL PRN (09:22)
[2021-10-21] MEDS: HYDROcodone/APAP 5-325MG 1 EACH TAB PO PRN (13:58)
[2021-10-21] MEDS: AMPICILLIN-SULBACTAM 3 GM in SODIUM CHLORIDE 0.9% 100 ML IVPB SCH ×2 (19:27→23:44)
[2021-10-21] MEDS: HYDROmorphone 0.5 MG/0.5 ML SYRINGE IVP PRN (19:28)
[2021-10-21] MEDS: METOPROLOL TARTRATE 25 MG TAB PO SCH (19:28)
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
[2021-10-21] MEDS: HEPARIN SODIUM,PORCINE/PF 5,000 UNIT/0.5 ML SYRINGE SQ SCH (23:44)
[2021-10-21] MEDS: COLCHICINE 0.6 MG EACH PO SCH (23:44)
[2021-10-22] MEDS: HYDROmorphone 0.5 MG/0.5 ML SYRINGE IVP PRN ×7 (01:43→23:00)
[2021-10-22] MEDS: AMPICILLIN-SULBACTAM 3 GM in SODIUM CHLORIDE 0.9% 100 ML IVPB SCH ×4 (05:50→23:01)
[2021-10-22] MEDS: PRASUGREL 10 MG TAB PO SCH (07:45)
[2021-10-22] MEDS: COLCHICINE 0.6 MG EACH PO SCH ×2 (07:45→19:38)
[2021-10-22] MEDS: ASPIRIN 81 MG PO SCH (07:45)
[2021-10-22] MEDS: HEPARIN SODIUM,PORCINE/PF 5,000 UNIT/0.5 ML SYRINGE SQ SCH ×3 (07:46→22:59)
[2021-10-22] MEDS: ATORVASTATIN 80 MG TAB PO SCH (07:46)
[2021-10-22] MEDS: ISOSORBIDE MONONITRATE ER 30 MG TAB.ER.24H PO SCH (07:46)
[2021-10-22] MEDS: METOPROLOL TARTRATE 25 MG TAB PO SCH ×2 (07:46→19:38)
[2021-10-22] MEDS ORDERED: ASPIRIN 325 MG TAB PO SCH (09:00)
[2021-10-22 10:45] LABS: Basophils # (A) 0.05 X 10*3/uL (0.00-0.10); Basophils % (A) 0.4 %; Eosinophils # (A) 0.06 X 10*3/uL (0.04-0.35); Eosinophils % (A) 0.5 %; HCT 43.5 % (39.6-50.0); HGB 14.9 g/dL (13.0-17.0); Immature Grans, Automated 0.3 %; Lymphocytes # (A) 2.68 X 10*3/uL (0.90-5.00); Lymphocytes % (A) 20.8 %; MCH 33.1 pg (27.0-32.0); MCHC 34.3 g/dL (32.0-37.0); MCV 96.7 fL (80.0-97.0); Mean Platelet Volume 10.3 fL (9.5-12.2); Monocytes # (A) 1.26 X 10*3/uL (0.20-1.00); Monocytes % (A) 9.8 %; NRBC Per 100 WBC 0 /100 WBCS (0.0-0.0); Neutrophils # (A) 8.78 X 10*3/uL (1.80-7.70); Neutrophils % (A) 68.2 %; Platelet Count 270 X 10*3/uL (140-440); RDW 12.1 % (11.5-14.5); WBC 12.87 X 10*3/uL (4.50-10.00)
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
[2021-10-22 11:01] LABS: African American GFR (CKD) 126.6 (60.0-200.0); Anion Gap 12.8 mmol/L (10.00-18.00); BUN/Creat Ratio 9.43 Ratio (12.00-20.00); Blood Urea Nitrogen 6.6 mg/dL (9.0-27.0); Calcium 9.2 mg/dL (8.7-10.3); Carbon Dioxide 23.2 mmol/L (20.0-27.5); Non-African American GFR(CKD) 109.3 (60.0-200.0); Potassium 3.9 mmol/L (3.5-5.5)
--- NOTE | 2021-10-22 23:26 | P.PN ---
Subjective Progress Note Date: 10/22/21 He feels the facial swelling is improving with antibiotics but continues to report congestion and tenderness. Denies fever, chills. He complains of poor dentition throughout the front incisors and premolars and states he cannot afford to see a dentist. WBC 12.9 today. Objective - Vital Signs Vital signs: Vital Signs Temp 98.6 F 10/22/21 19:56 Pulse 91 10/22/21 19:56 Resp 16 10/22/21 19:56 BP 131/83 10/22/21 19:56 Pulse Ox 96 10/22/21 19:56 Intake & Output 10/22/21 10/22/21 10/23/21 06:59 18:59 06:59 Intake Total 236 Balance 236 Intake: Oral 236 Other: # Voids 2 3 - Exam General: well nourished, well developed, NAD. Vitals reviewed HEENT: facial swelling R>L, tenderness bilateral maxillary sinus and R frontal sinus Lungs: normal respiratory effort, no wheezes or rales CV: Regular rate and rhythm, no murmur. Peripheral pulses 2+ Abdomen: soft, nondistended, no organomegaly Skin: warm and dry. - Labs CBC & Chem 7: 10/22/21 06:54 10/22/21 06:54 Labs: Abnormal Lab Results - Last 24 Hours (Table) 10/22/21 10/22/21 Range/Units 06:54 06:54 WBC 12.87 H (4.50-10.00) X 10*3/uL MCH 33.1 H (27.0-32.0) pg Neutrophils # 8.78 H (1.80-7.70) X 10*3/uL Monocytes # 1.26 H (0.20-1.00) X 10*3/uL BUN 6.6 L (9.0-27.0) mg/dL BUN/Creatinine Ratio 9.43 L (12.00-20.00) Ratio Microbiology - Last 24 Hours (Table) 10/21/21 11:51 Blood Culture - Preliminary Blood No Growth after 24 hours 10/21/21 11:40 Blood Culture - Preliminary Blood No Growth after 24 hours Assessment and Plan Plan: Continue with Unasyn, XR mandibule ordered, ID following. Continue heparin sq and colchicine. Cardiology following
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
[2021-10-23] MEDS: HYDROmorphone 0.5 MG/0.5 ML SYRINGE IVP PRN ×3 (03:06→08:54)
[2021-10-23] MEDS: AMPICILLIN-SULBACTAM 3 GM in SODIUM CHLORIDE 0.9% 100 ML IVPB SCH ×4 (06:06→23:14)
[2021-10-23] MEDS: COLCHICINE 0.6 MG EACH PO SCH ×2 (08:07→21:56)
[2021-10-23] MEDS: METOPROLOL TARTRATE 25 MG TAB PO SCH ×2 (08:07→21:56)
[2021-10-23] MEDS: HEPARIN SODIUM,PORCINE/PF 5,000 UNIT/0.5 ML SYRINGE SQ SCH ×3 (08:07→23:15)
[2021-10-23] MEDS: ATORVASTATIN 80 MG TAB PO SCH (08:07)
[2021-10-23] MEDS: ISOSORBIDE MONONITRATE ER 30 MG TAB.ER.24H PO SCH (08:07)
[2021-10-23] MEDS: ASPIRIN 81 MG PO SCH (08:08)
[2021-10-23] MEDS: PRASUGREL 10 MG TAB PO SCH (08:08)
--- NOTE | 2021-10-23 09:23 | XR ---
EXAMINATION TYPE: XR mandible complete DATE OF EXAM: 10/23/2021 COMPARISON: NONE HISTORY: Pain TECHNIQUE: 6 views submitted FINDINGS: Osseous structures intact. No destructive change. No acute fracture. There is evidence of n umerous teeth. Correlate for periodontal disease. IMPRESSION: No acute osseous abnormality. If symptoms persist consider CT scan.
[2021-10-23] MEDS: HYDROcodone/APAP 5-325MG 1 EACH TAB PO PRN (11:54)
[2021-10-23 16:16] VITALS: TEMP 98.1
--- NOTE | 2021-10-23 16:36 | P.PN ---
Subjective Progress Note Date: 10/23/21 Maintained on IV antibiotics of Unasyn with significant improvement in facial swelling. Report right eye blurred vision. Afebrile, WBC trending down, 12.87. Hemoglobin 14.9, platelets 270, renal function stable. Mandible x-ray performed, reportedly no acute osseous abnormality. Yesterday he reported that he could not afford to see a dentist. Patient was encouraged to call [facility]. Patient has yet to call any dentist. Objective - Vital Signs Vital signs: Vital Signs Temp 98.1 F 10/23/21 15:00 Pulse 79 10/23/21 15:00 Resp 16 10/23/21 15:00 BP 103/63 10/23/21 15:00 Pulse Ox 96 10/23/21 15:00 Intake & Output 10/22/21 10/23/21 10/23/21 18:59 06:59 18:59 Intake Total 236 118 Balance 236 118 Intake: Oral 236 118 Other: # Voids 3 1 - Exam - Exam General: well nourished, well developed, NAD. Vitals reviewed HEENT: Decreased facial swelling R>L, tenderness bilateral maxillary sinus and R frontal sinus Lungs: normal respiratory effort, no wheezes or rales CV: Regular rate and rhythm, no murmur. Peripheral pulses 2+ Abdomen: soft, nondistended, no organomegaly Skin: warm and dry. - Labs CBC & Chem 7: 10/22/21 06:54 10/22/21 06:54 Labs: Microbiology - Last 24 Hours (Table) 10/21/21 11:51 Blood Culture - Preliminary Blood No Growth after 48 hours 10/21/21 11:40 Blood Culture - Preliminary Blood No Growth after 48 hours Assessment and Plan Assessment: Chest discomfort. ACS, ruled out as per cardiology. Recent admission treated for pericarditis , continues on colchicine . Right-sided facial swelling/cellulitis due to tooth infection, dental abscess in a patient with poor dental hygiene Recent NSTEMI s/p stent placement to second diagonal branch on 10/12/2021. COPD Ongoing nicotine addiction Family history of coronary disease GERD Seizure disorder Plan: Continue on current medication regime ,monitoring and symptomatic treatment. Maintain IV antibiotics of Unasyn as per infectious disease. Heparin subcu for DVT prophylaxis . PPI for GI prophylaxis .Patient has again been encouraged to call [facility] or any dentist. Ophthalmology consulted regarding complaints of persistent blurred vision. The impression and plan of care has been dictated as directed. : I performed a history and examination of this patient, discussed the same with the dictator. I agree with the dictator's note ,documented as a scribe. Any additional findings or plans will be noted.
[2021-10-23] MEDS ORDERED: PANTOPRAZOLE 40 MG/10 ML VIAL IVP SCH (16:45)
[2021-10-23 20:00] VITALS: BP 110/75; PULSE 81; RESP 18
--- NOTE | 2021-10-23 23:07 | P.PN ---
Subjective Progress Note Date: 10/23/21 Principal diagnosis: Right lower jaw/dental infection Patient is a 51 year male with multiple comorbidities and recent [place] status post stent placement presented to hospital with the right lower jaw pain and swelling with infected tooth, x-rays of the mandible did not show any bony erosion. On today's evaluation that is 10/23/2021, the patient denies having any fever or any changes, overall pain and discomfort in the right lower jaw has decreased in intensity, denies having any chest pain shortness of breath or cough no abdominal pain no diarrhea Objective - Vital Signs Vital signs: Vital Signs Temp 98.6 F 10/23/21 07:05 Pulse 86 10/23/21 07:05 Resp 17 10/23/21 07:05 BP 136/89 10/23/21 07:05 Pulse Ox 96 10/23/21 07:05 Intake & Output 10/22/21 10/23/21 10/23/21 18:59 06:59 18:59 Intake Total 236 Balance 236 Intake: Oral 236 Other: # Voids 3 1 - Exam GENERAL DESCRIPTION: A middle-aged male lying in bed in no distress RESPIRATORY SYSTEM: Unlabored breathing , decreased breath sounds at bases HEART: S1 S2 regular rate and rhythm , ABDOMEN: Soft , no tenderness EXTREMITIES: No edema feet - Labs CBC & Chem 7: 10/22/21 06:54 10/22/21 06:54 Labs: Microbiology - Last 24 Hours (Table) 10/21/21 11:51 Blood Culture - Preliminary Blood No Growth after 24 hours 10/21/21 11:40 Blood Culture - Preliminary Blood No Growth after 24 hours Assessment and Plan (1) Dental abscess Current Visit: Yes Status: Acute Code(s): K04.7 - PERIAPICAL ABSCESS WITHOUT SINUS SNOMED Code(s): 575132362 Plan: 1patient with a right lower jaw pain in this patient did have a poor dental hygiene especially the right lower jaw area and will need to cover for the buffy ymicrobial delfino usually associated with these abscesses. 2. x-rays of the mandible did not show any bony abnormality 3Unasyn 3 g every 6 hours to continue and plan to finish therapy with oral Augmentin Time with Patient: Less than 30
== END 2021-10-23 23:56 | disposition left against medical advice (07) | DRG 158 ==
LOC: EC 06:11 → 6NMEDSUR 09:43 → OBSVTOIN 10-23 13:59
PROVIDERS: ADMIT Family Medicine; ATTEND Family Medicine
DX: K04.7 Periapical abscess without sinus (principal); L03.211 Cellulitis of face; I31.9 Disease of pericardium, unspecified; K08.89 Other specified disorders of teeth and supporting structures; J44.9 Chronic obstructive pulmonary disease, unspecified; K21.9 Gastro-esophageal reflux disease without esophagitis; F17.210 Nicotine dependence, cigarettes, uncomplicated; G40.909 Epilepsy, unspecified, not intractable, without status epilepticus; I25.10 Atherosclerotic heart disease of native coronary artery without angina pectoris; I25.2 Old myocardial infarction; Z79.02 Long term (current) use of antithrombotics/antiplatelets; Z79.82 Long term (current) use of aspirin; Z79.899 Other long term (current) drug therapy; Z82.49 Family history of ischemic heart disease and other diseases of the circulatory system; Z82.5 Family history of asthma and other chronic lower respiratory diseases; Z93.3 Colostomy status; Z95.5 Presence of coronary angioplasty implant and graft; Z87.19 Personal history of other diseases of the digestive system; Z86.79 Personal history of other diseases of the circulatory system
CPT/HCPCS: 36415; 70110; 71046; 80048; 80053; 83690; 83735; 83880; 84484; 85025; 85610; 85730; 87040; 93005; 96365; 99285

== ENCOUNTER 2022-12-17 12:16 | Observation (INO) | payer BC, OTHER ==
[2022-12-17 12:47] LABS: Basophils % (A) 0 %; Eosinophils # (A) 0.2 k/uL (0-0.7); Eosinophils % (A) 2 %; HCT 41.5 % (39.0-53.0); HGB 14.3 gm/dL (13.0-17.5); Lymphocytes # (A) 2.1 k/uL (1.0-4.8); Lymphocytes % (A) 25 %; MCH 33.7 pg (25.0-35.0); MCHC 34.5 g/dL (31.0-37.0); MCV 97.8 fL (80.0-100.0); Mean Platelet Volume 7.5; Monocytes # (A) 0.4 k/uL (0-1.0); Monocytes % (A) 5 %; Neutrophils # (A) 5.3 k/uL (1.3-7.7); Neutrophils % (A) 66 %; Platelet Count 268 k/uL (150-450); RBC 4.25 m/uL (4.30-5.90); RDW 12.3 % (11.5-15.5); WBC 8.1 k/uL (3.8-10.6)
[2022-12-17 12:58] LABS: Partial Thromboplastin Time 27.9 sec (22.0-30.0); Prothrombin Time 10.2 sec (9.0-12.0)
[2022-12-17 13:09] LABS: ALT 19 U/L (4-49); AST 26 U/L (17-59); African American GFR (CKD) >90 (>60 ml/min/1.73 sqM); Albumin 3.9 g/dL (3.5-5.0); Alkaline Phosphatase 73 U/L (38-126); Anion Gap 9 mmol/L; Blood Urea Nitrogen 10 mg/dL (9-20); Calcium 9.2 mg/dL (8.4-10.2); Carbon Dioxide 24 mmol/L (22-30); Chloride 103 mmol/L (98-107); Glucose 181 mg/dL (74-99); Non-African American GFR(CKD) >90 (>60 ml/min/1.73 sqM); Potassium 3.9 mmol/L (3.5-5.1); Sodium 136 mmol/L (137-145); Total Bilirubin 0.5 mg/dL (0.2-1.3); Total Protein 6.4 g/dL (6.3-8.2)
[2022-12-17] MEDS ORDERED: MORPHINE SULFATE 4 MG/ML SYRINGE IV STA (13:27)
[2022-12-17] MEDS ORDERED: ASPIRIN 81 MG PO STA (13:27)
[2022-12-17] MEDS ORDERED: NITROGLYCERIN SL TABS 0.4 MG TAB SUBLINGUAL STA (13:27)
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
--- NOTE | 2022-12-17 14:02 | XR ---
EXAMINATION TYPE: XR chest 2V DATE OF EXAM: 12/17/2022 COMPARISON: 11/07/2021 INDICATION: Chest pain TECHNIQUE: Frontal and lateral views of the chest are obtained. FINDINGS: The heart size is normal. The pulmonary vasculature is normal. Platelike atelectasis at the right costophrenic angle.. IMPRESSION: 1. Platelike atelectasis right costophrenic angle.
[2022-12-17] MEDS ORDERED: HEPARIN SODIUM 1,000 UN/ML (10ML VL) IV PRN (14:26)
[2022-12-17] MEDS ORDERED: NITROGLYCERIN OINT 1 INCH/GM PACKET TOPICAL STA (14:26)
[2022-12-17] MEDS ORDERED: HEPARIN SODIUM 1,000 UN/ML (10ML VL) IV ONE (14:26)
[2022-12-17] MEDS ORDERED: NITROGLYCERIN SL TABS 0.4 MG TAB SUBLINGUAL PRN (14:29)
[2022-12-17] MEDS ORDERED: HEPARIN SOD,PORK IN 0.45% NACL 25,000 UNIT in 0.45% NACL 1 250ML.BAG IV SCH (14:30)
[2022-12-17] MEDS ORDERED: ATORVASTATIN 40 MG TAB PO SCH (22:15)
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
[2022-12-17] MEDS: METOPROLOL TARTRATE 12.5 MG TAB PO SCH (22:45)
[2022-12-17] MEDS: NICOTINE 21MG/24HR PATCH TRANSDERM SCH (22:45)
[2022-12-18] MEDS: NICOTINE 21MG/24HR PATCH TRANSDERM SCH (07:25)
[2022-12-18] MEDS ORDERED: REGADENOSON 0.4 MG/5 ML SYRINGE IV PRN (08:01)
[2022-12-18] MEDS ORDERED: CAFFEINE CITRATE 60 MG/3 ML VIAL IV PRN (08:01)
[2022-12-18] MEDS ORDERED: AMINOPHYLLINE 500 MG/20 ML VIAL IV PRN (08:01)
[2022-12-18] MEDS: METOPROLOL TARTRATE 12.5 MG TAB PO SCH ×2 (08:42→09:44)
[2022-12-18] MEDS ORDERED: ASPIRIN 325 MG TAB PO SCH (09:00)
[2022-12-18] MEDS ORDERED: ASPIRIN 81 MG PO SCH (09:00)
[2022-12-18 09:13] LABS: Chol/HDL Ratio 5.21 Ratio; LDL Cholesterol,Calculated 137.8 mg/dL (0.0-131.0); VLDL Calculation 14.86 mg/dL (5.00-40.00)
--- NOTE | 2022-12-18 12:35 | CA ---
Transthoracic Echo Report Name: Clay Buck Age: 52 Gender: M : 1970 Exam Date: 12/18/2022 09:22 Exam Location: [facility] Ht (in): 67 Wt (lb): 140 Ordering Physician: Lm Maldonado MD Attending/Referring Phys: Ribbon Lapper Tender Kandy Lancaster RDCS Procedure CPT: Indications: Chest Pain Cardiac Hx: Technical Quality: Good Contrast 1: Total Dose (mL): Contrast 2: Total Dose (mL): MEASUREMENTS (Male / Female) Normal Values 2D ECHO LV Diastolic Diameter PLAX 4.0 cm 4.2 - 5.9 / 3.9 - 5.3 cm LV Systolic Diameter PLAX 2.5 cm IVS Diastolic Thickness 0.9 cm 0.6 - 1.0 / 0.6 - 0.9 cm LVPW Diastolic Thickness 1.0 cm 0.6 - 1.0 / 0.6 - 0.9 cm LV Relative Wall Thickness 0.5 RV Internal Dim ED PLAX 2.9 cm LA Systolic Diameter LX 3.2 cm 3.0 - 4.0 / 2.7 - 3.8 cm LV Diastolic Volume MOD 4C 88.3 cm??? LV Systolic Volume MOD 4C 34.6 cm??? LV Ejection Fraction MOD 4C 60.8 % LV Diastolic Length 4C 8.3 cm LV Systolic Length 4C 6.5 cm LV Diastolic Volume MOD 2C 108.1 cm??? LV Systolic Volume MOD 2C 37.2 cm??? LV Ejection Fraction MOD 2C 65.6 % LV Diastolic Length 2C 8.3 cm LV Systolic Length 2C 6.2 cm LA Volume 39.8 cm??? 18 - 58 / 22 - 52 cm??? M-MODE Aortic Root Diameter MM 3.1 cm MV E Point Septal Separation 0.5 cm AV Cusp Separation MM 2.1 cm DOPPLER AV Peak Velocity 131.0 cm/s AV Peak Gradient 6.9 mmHg MV Area PHT 4.0 cm??? Mitral E Point Velocity 90.1 cm/s Mitral A Point Velocity 83.6 cm/s Mitral E to A Ratio 1.1 MV Deceleration Time 189.5 ms MV E' Velocity 10.5 cm/s Mitral E to MV E' Ratio 8.5 TR Peak Velocity 191.7 cm/s TR Peak Gradient 14.7 mmHg Right Ventricular Systolic Press 19.1 mmHg FINDINGS Left Ventricle Left ventricular ejection fraction is estimated at 55-60 %. Left ventricular cavity size normal. Left ventricular wall thickness normal. Right Ventricle Normal right ventricular size and function. Right ventricular systolic pressure within normal limits. Right Atrium Normal right atrial size. Left Atrium Normal left atrial size. Mitral Valve Mitral valve not well visualized. No mitral stenosis, regurgitation or prolapse. Aortic Valve Trileaflet aortic valve. No aortic valve stenosis or regurgitation. Tricuspid Valve Structurally normal tricuspid valve. Trace to mild tricuspid regurgitation. Pulmonic Valve Structurally normal pulmonic valve. Mild pulmonic regurgitation. Pericardium Normal pericardium. No pericardial effusion. Aorta Normal size aortic root and proximal ascending aorta. CONCLUSIONS Normal left ventricle size and systolic function. No significant abnormality on the Doppler exam. No pericardial effusion Previewed by: Dr. Devin Sabillon MD (Electronically Signed) Final Date: 18 Dec 2022 12:35
[2022-12-18 15:36] VITALS: BP 129/82; PULSE 68; RESP 16; TEMP 97.8
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
== END 2022-12-18 17:04 | disposition left against medical advice (07) ==
LOC: EC 12:16 → 6NMEDSUR 14:30
PROVIDERS: ADMIT Hospitalist; ATTEND Hospitalist
DX: I25.110 Atherosclerotic heart disease of native coronary artery with unstable angina pectoris (principal); J42 Unspecified chronic bronchitis; K21.9 Gastro-esophageal reflux disease without esophagitis; G40.909 Epilepsy, unspecified, not intractable, without status epilepticus; Z91.148 Patient's other noncompliance with medication regimen for other reason; F17.210 Nicotine dependence, cigarettes, uncomplicated; F10.21 Alcohol dependence, in remission; I25.2 Old myocardial infarction; Z53.29 Procedure and treatment not carried out because of patient's decision for other reasons; Z79.02 Long term (current) use of antithrombotics/antiplatelets; Z79.82 Long term (current) use of aspirin; Z79.899 Other long term (current) drug therapy; Z91.030 Bee allergy status; Z95.5 Presence of coronary angioplasty implant and graft; Z87.828 Personal history of other (healed) physical injury and trauma; Z98.890 Other specified postprocedural states; Z82.49 Family history of ischemic heart disease and other diseases of the circulatory system; Z82.5 Family history of asthma and other chronic lower respiratory diseases; Z83.79 Family history of other diseases of the digestive system; Z82.61 Family history of arthritis; Z71.6 Tobacco abuse counseling
CPT/HCPCS: 96376 ×2; 96366 ×3; 96365; 96375; 99291; 36415; 94760; 93005; 93306; 85379; 80061; 80053; 84484; 85025; 85610; 85730 ×2; 71046; G0378 ×2; J2270; J1644 ×3

== ENCOUNTER 2023-09-25 15:00 | Emergency (ER) | payer BC, OTHER ==
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
[2023-09-25 15:26] VITALS: TEMP 98.9
[2023-09-25] MEDS: NITROGLYCERIN OINT 1 INCH/GM PACKET TOPICAL STA (15:31)
[2023-09-25] MEDS: ACETAMINOPHEN TAB 500 MG TAB PO STA (15:31)
[2023-09-25 15:50] LABS: Basophils # (A) 0.1 k/uL (0-0.2); Basophils % (A) 1 %; Eosinophils # (A) 0.1 k/uL (0-0.7); Eosinophils % (A) 1 %; HCT 42.3 % (39.0-53.0); HGB 14.4 gm/dL (13.0-17.5); Lymphocytes # (A) 2.5 k/uL (1.0-4.8); Lymphocytes % (A) 25 %; MCH 33.1 pg (25.0-35.0); MCV 97.2 fL (80.0-100.0); Mean Platelet Volume 8.1; Monocytes # (A) 0.5 k/uL (0-1.0); Monocytes % (A) 5 %; Neutrophils # (A) 6.8 k/uL (1.3-7.7); Neutrophils % (A) 68 %; Platelet Count 253 k/uL (150-450); RBC 4.35 m/uL (4.30-5.90); RDW 11.9 % (11.5-15.5)
[2023-09-25 15:59] LABS: Partial Thromboplastin Time 28.6 sec (22.0-30.0); Prothrombin Time 10.6 sec (10.0-12.5)
[2023-09-25 16:12] LABS: ALT 25 U/L (4-49); AST 28 U/L (17-59); African American GFR (CKD) >90 (>60 ml/min/1.73 sqM); Alkaline Phosphatase 75 U/L (38-126); Anion Gap 6 mmol/L; Blood Urea Nitrogen 7 mg/dL (9-20); Calcium 9.2 mg/dL (8.4-10.2); Carbon Dioxide 24 mmol/L (22-30); Chloride 109 mmol/L (98-107); Glucose 92 mg/dL (74-99); Magnesium 2.1 mg/dL (1.6-2.3); Non-African American GFR(CKD) >90 (>60 ml/min/1.73 sqM); Potassium 3.9 mmol/L (3.5-5.1); Sodium 139 mmol/L (137-145); Total Bilirubin 0.6 mg/dL (0.2-1.3); Total Protein 6.4 g/dL (6.3-8.2)
--- NOTE | 2023-09-25 16:39 | XR ---
EXAMINATION: XR chest 2V: 09/25/2023 4:24 PM CLINICAL INDICATION: Chest Pain TECHNIQUE: Departmental protocol COMPARISON: 12/17/2022 FINDINGS: The lungs are clear. The pleural spaces are negative. The cardiac silhouette is not enlarged. The remainder of the mediastinal silhouette is unremarkable. The skeletal structures and soft tissues are negative for acute findings. IMPRESSION: No definite acute radiographic process.
[2023-09-25 17:23] VITALS: RESP 16
[2023-09-25 18:19] VITALS: BP 138/66; PULSE 68
== END 2023-09-25 17:56 | disposition left against medical advice (07) ==
LOC: EC 15:00
DX: R07.89 Other chest pain (principal); I25.2 Old myocardial infarction; J44.9 Chronic obstructive pulmonary disease, unspecified; F17.200 Nicotine dependence, unspecified, uncomplicated; Z91.030 Bee allergy status; Z95.5 Presence of coronary angioplasty implant and graft; Z53.29 Procedure and treatment not carried out because of patient's decision for other reasons
CPT/HCPCS: 36415; 71046; 80053; 83735; 84484; 85025; 85610; 85730; 93005; 99285

== ENCOUNTER → 2023-10-04 | Outpatient (CLI) | payer BC, OTHER ==
[2023-10-04 23:29] LABS: ALT 23 U/L (10-49); AST 21 U/L (14-35); Chol/HDL Ratio 5.39 Ratio; LDL Cholesterol,Calculated 111.9 mg/dL (0.0-131.0)
== END | disposition home or self-care (01) ==
LOC: LABWHC1 10:37
PROVIDERS: ATTEND Internal Medicine Cardiovascular Disease
DX: E78.2 Mixed hyperlipidemia (principal)
CPT/HCPCS: 36415; 80061; 84450; 84460